=== PATIENT | male | born 1955 | race Caucasian/White ===

== ENCOUNTER 2016-09-25 16:19 | Inpatient (IN) | payer BC ==
[2016-09-25] MEDS ORDERED: LORazepam 2 MG/ML SYRINGE IV STA (16:46)
[2016-09-25] MEDS ORDERED: SODIUM CHLORIDE 0.9% 1,000 ML IV STA (16:46)
--- NOTE | 2016-09-25 16:52 | ED ---
General Adult HPI - General Chief complaint: Psychiatric Symptoms Stated complaint: mental health/aggressive Time Seen by Provider: 09/25/16 16:34 Source: patient, family, RN notes reviewed, old records reviewed Mode of arrival: ambulatory Limitations: no limitations - History of Present Illness Initial comments: This is a 60-year-old male ER for psychiatric evaluation. Patient denies history of psychiatric abuse and history of drug abuse. Today patient made threats to kill his son-in-law. Patient very emotional at bedside. Under sure why he is having these feelings. - Related Data Home Medications Medication Instructions Recorded Confirmed Aspirin EC [Ecotrin Low Dose] 162 mg PO DAILY 09/25/16 09/25/16 Allergies Allergy/AdvReac Type Severity Reaction Status Date / Time No Known Allergies Allergy Verified 09/25/16 17:48 Review of Systems ROS Statement: Those systems with pertinent positive or pertinent negative responses have been documented in the HPI. ROS Other: All systems not noted in ROS Statement are negative. Past Medical History Past Medical History: No Reported History Additional Past Medical History / Comment(s): states has not seen a dr in many years per significant weight loss in the past year History of Any Multi-Drug Resistant Organisms: None Reported Past Surgical History: Hernia Repair Past Psychological History: No Psychological Hx Reported Smoking Status: Current every day smoker Past Alcohol Use History: None Reported Past Drug Use History: None Reported General Exam Limitations: no limitations General appearance: alert, in no apparent distress Head exam: Present: atraumatic, normocephalic, normal inspection Eye exam: Present: normal appearance, PERRL, EOMI. Absent: scleral icterus, conjunctival injection, periorbital swelling ENT exam: Present: normal exam, mucous membranes moist Neck exam: Present: normal inspection. Absent: tenderness, meningismus, lymphadenopathy Respiratory exam: Present: normal lung sounds bilaterally. Absent: respiratory distress, wheezes, rales, rhonchi, stridor Cardiovascular Exam: Present: regular rate, normal rhythm, normal heart sounds. Absent: systolic murmur, diastolic murmur, rubs, gallop, clicks GI/Abdominal exam: Present: soft, normal bowel sounds. Absent: distended, tenderness, guarding, rebound, rigid Extremities exam: Present: normal inspection, full ROM, normal capillary refill. Absent: tenderness, pedal edema, joint swelling, calf tenderness Back exam: Present: normal inspection Neurological exam: Present: alert, oriented X3, CN II-XII intact Psychiatric exam: Present: normal affect, normal mood Skin exam: Present: warm, dry, intact, normal color. Absent: rash Course Vital Signs 09/25/16 09/25/16 16:38 17:37 Temperature 99.8 F H Pulse Rate 85 78 Respiratory 18 18 Rate Blood Pressure 163/77 136/75 O2 Sat by Pulse 98 98 Oximetry EKG Findings - EKG Comments: EKG Findings:: EKG shows normal sinus rhythm rate of 76, AR 132, QRS 80, QTC 423 Medical Decision Making - Medical Decision Making 60 male seen and evaluated by psychiatry will be admitted for psychiatric evaluation and treatment - Lab Data Result diagrams: 09/25/16 17:00 09/25/16 17:00 Lab Results 09/25/16 09/25/16 09/25/16 Range/Units 17:00 17:00 17:00 WBC 9.5 (3.8-10.6) k/uL RBC 4.58 (4.30-5.90) m/uL Hgb 14.7 (13.0-17.5) gm/dL Hct 44.1 (39.0-53.0) % MCV 96.3 (80.0-100.0) fL MCH 32.0 (25.0-35.0) pg MCHC 33.3 (31.0-37.0) g/dL RDW 13.4 (11.5-15.5) % Plt Count 239 (150-450) k/uL Neutrophils % 81 % Lymphocytes % 12 % Monocytes % 5 % Eosinophils % 0 % Basophils % 0 % Neutrophils # 7.7 (1.3-7.7) k/uL Lymphocytes # 1.2 (1.0-4.8) k/uL Monocytes # 0.4 (0-1.0) k/uL Eosinophils # 0.0 (0-0.7) k/uL Basophils # 0.0 (0-0.2) k/uL Sodium 139 (137-145) mmol/L Potassium 4.0 (3.5-5.1) mmol/L Chloride 103 (98-107) mmol/L Carbon Dioxide 26 (22-30) mmol/L Anion Gap 10 mmol/L BUN 14 (9-20) mg/dL Creatinine 0.82 (0.66-1.25) mg/dL Est GFR (MDRD) Af Amer >60 (>60 ml/min/1.73 sqM) Est GFR (MDRD) Non-Af >60 (>60 ml/min/1.73 sqM) Glucose 106 H (74-99) mg/dL Calcium 9.4 (8.4-10.2) mg/dL Phosphorus 2.9 (2.5-4.5) mg/dL Magnesium 1.8 (1.6-2.3) mg/dL Total Bilirubin 1.0 (0.2-1.3) mg/dL AST 19 (17-59) U/L ALT 27 (21-72) U/L Alkaline Phosphatase 76 (38-126) U/L Total Creatine Kinase 63 (55-170) U/L CK-MB (CK-2) 1.0 (0.0-2.4) ng/mL CK-MB (CK-2) Rel Index 1.6 Troponin I <0.012 (0.000-0.034) ng/mL Total Protein 7.0 (6.3-8.2) g/dL Albumin 3.9 (3.5-5.0) g/dL Urine Color Urine Appearance (Clear) Urine pH (5.0-8.0) Ur Specific [place] (1.001-1.035) Urine Protein (Negative) Urine Glucose (UA) (Negative) Urine Ketones (Negative) Urine Blood (Negative) Urine Nitrite (Negative) Urine Bilirubin (Negative) Urine Urobilinogen (<2.0) mg/dL Ur Leukocyte Esterase (Negative) Urine WBC (0-5) /hpf Urine Mucus (None) /hpf Urine Opiates Screen (NotDetected) Ur Oxycodone Screen (NotDetected) Urine Methadone Screen (NotDetected) Ur Propoxyphene Screen (NotDetected) Ur Barbiturates Screen (NotDetected) U Tricyclic Antidepress (NotDetected) Ur Phencyclidine Scrn (NotDetected) Ur Amphetamines Screen (NotDetected) U Methamphetamines Scrn (NotDetected) U Benzodiazepines Scrn (NotDetected) Urine Cocaine Screen (NotDetected) U Marijuana (THC) Screen (NotDetected) Serum Alcohol <10 mg/dL 09/25/16 09/25/16 Range/Units 17:45 17:45 WBC (3.8-10.6) k/uL RBC (4.30-5.90) m/uL Hgb (13.0-17.5) gm/dL Hct (39.0-53.0) % MCV (80.0-100.0) fL MCH (25.0-35.0) pg MCHC (31.0-37.0) g/dL RDW (11.5-15.5) % Plt Count (150-450) k/uL Neutrophils % % Lymphocytes % % Monocytes % % Eosinophils % % Basophils % % Neutrophils # (1.3-7.7) k/uL Lymphocytes # (1.0-4.8) k/uL Monocytes # (0-1.0) k/uL Eosinophils # (0-0.7) k/uL Basophils # (0-0.2) k/uL Sodium (137-145) mmol/L Potassium (3.5-5.1) mmol/L Chloride (98-107) mmol/L Carbon Dioxide (22-30) mmol/L Anion Gap mmol/L BUN (9-20) mg/dL Creatinine (0.66-1.25) mg/dL Est GFR (MDRD) Af Amer (>60 ml/min/1.73 sqM) Est GFR (MDRD) Non-Af (>60 ml/min/1.73 sqM) Glucose (74-99) mg/dL Calcium (8.4-10.2) mg/dL Phosphorus (2.5-4.5) mg/dL Magnesium (1.6-2.3) mg/dL Total Bilirubin (0.2-1.3) mg/dL AST (17-59) U/L ALT (21-72) U/L Alkaline Phosphatase (38-126) U/L Total Creatine Kinase (55-170) U/L CK-MB (CK-2) (0.0-2.4) ng/mL CK-MB (CK-2) Rel Index Troponin I (0.000-0.034) ng/mL Total Protein (6.3-8.2) g/dL Albumin (3.5-5.0) g/dL Urine Color Yellow Urine Appearance Clear (Clear) Urine pH 6.0 (5.0-8.0) Ur Specific [place] 1.011 (1.001-1.035) Urine Protein Negative (Negative) Urine Glucose (UA) Negative (Negative) Urine Ketones Negative (Negative) Urine Blood Negative (Negative) Urine Nitrite Negative (Negative) Urine Bilirubin Negative (Negative) Urine Urobilinogen <2.0 (<2.0) mg/dL Ur Leukocyte Esterase Trace H (Negative) Urine WBC 2 (0-5) /hpf Urine Mucus Rare H (None) /hpf Urine Opiates Screen Not Detected (NotDetected) Ur Oxycodone Screen Not Detected (NotDetected) Urine Methadone Screen Not Detected (NotDetected) Ur Propoxyphene Screen Not Detected (NotDetected) Ur Barbiturates Screen Not Detected (NotDetected) U Tricyclic Antidepress Not Detected (NotDetected) Ur Phencyclidine Scrn Not Detected (NotDetected) Ur Amphetamines Screen Not Detected (NotDetected) U Methamphetamines Scrn Not Detected (NotDetected) U Benzodiazepines Scrn Not Detected (NotDetected) Urine Cocaine Screen Not Detected (NotDetected) U Marijuana (THC) Screen Not Detected (NotDetected) Serum Alcohol mg/dL Disposition Clinical Impression: Depression, Homicidal ideation Disposition: TRANSFER TO PSYCH HOSP/UNIT Condition: Fair Referrals: Tiffani Arellano MD [Primary Care Provider] - 1-2 days
[2016-09-25 17:08] LABS: Basophils % (A) 0 %; CHCM 33.4; Eosinophils % (A) 0 %; HCT 44.1 % (39.0-53.0); HDW 2.23; HGB 14.7 gm/dL (13.0-17.5); Luc # (Auto) 0.17; Luc % (Auto) 2; Lymphocytes # (A) 1.2 k/uL (1.0-4.8); Lymphocytes % (A) 12 %; MCHC 33.3 g/dL (31.0-37.0); MCV 96.3 fL (80.0-100.0); Mean Platelet Volume 7.2; Monocytes # (A) 0.4 k/uL (0-1.0); Monocytes % (A) 5 %; Neutrophils # (A) 7.7 k/uL (1.3-7.7); Neutrophils % (A) 81 %; RBC 4.58 m/uL (4.30-5.90); RDW 13.4 % (11.5-15.5); WBC 9.5 k/uL (3.8-10.6); WBC (Perox) 9.65
[2016-09-25 17:21] LABS: ALT 27 U/L (21-72); AST 19 U/L (17-59); Alcohol <10 mg/dL; Alkaline Phosphatase 76 U/L (38-126); Anion Gap 10 mmol/L; Blood Urea Nitrogen 14 mg/dL (9-20); Calcium 9.4 mg/dL (8.4-10.2); Carbon Dioxide 26 mmol/L (22-30); Chloride 103 mmol/L (98-107); Creatine Kinase 63 U/L (55-170); Glucose 106 mg/dL (74-99); Magnesium 1.8 mg/dL (1.6-2.3); Non-African American GFR(MDRD) >60 (>60 ml/min/1.73 sqM); Phosphorous 2.9 mg/dL (2.5-4.5); Sodium 139 mmol/L (137-145)
[2016-09-25 17:32] LABS: Troponin I <0.012 ng/mL (0.000-0.034)
[2016-09-25 18:04] LABS: Appearance,Urine Clear (Clear); Bilirubin,Urine Negative (Negative); Glucose,Urine (UA) Negative (Negative); Ketones,Urine Negative (Negative); Leukocyte Esterase,Urine Trace (Negative); Mucus,Urine Rare /hpf; Nitrite,Urine Negative (Negative); Particle Count 927; Protein,Urine Negative (Negative); Specific Gravity,Urine 1.011 (1.001-1.035); UA Billing (MACRO vs. MICRO) MICRO; Urobilinogen,Urine <2.0 mg/dL (<2.0); WBC,Urine 2 /hpf (0-5)
[2016-09-25] MEDS ORDERED: MAGNESIUM HYDROXIDE 2,400 MG/10 ML CUP PO PRN (18:56)
[2016-09-25] MEDS ORDERED: ZIPRASIDONE 20 MG VIAL IM PRN (18:56)
[2016-09-25] MEDS ORDERED: MAG HYDROX/AL HYDROX/SIMETH 30 ML CUP PO PRN (18:56)
[2016-09-25] MEDS ORDERED: ACETAMINOPHEN TAB 325 MG TAB PO PRN (18:56)
[2016-09-25] MEDS ORDERED: LORazepam 1 MG TAB PO PRN (19:02)
[2016-09-25] MEDS ORDERED: LORazepam 2 MG/ML SYRINGE IM PRN (19:02)
[2016-09-25] MEDS: NICOTINE 14MG/24HR PATCH TRANSDERM SCH (21:26)
[2016-09-26] MEDS: NICOTINE 14MG/24HR PATCH TRANSDERM SCH (09:30)
[2016-09-26 10:59] LABS: Anion Gap 7 mmol/L; Blood Urea Nitrogen 14 mg/dL (9-20); Calcium 9.3 mg/dL (8.4-10.2); Carbon Dioxide 29 mmol/L (22-30); Chloride 104 mmol/L (98-107); Glucose 103 mg/dL (74-99); Non-African American GFR(MDRD) >60 (>60 ml/min/1.73 sqM); Potassium 4.4 mmol/L (3.5-5.1); Sodium 140 mmol/L (137-145)
--- NOTE | 2016-09-26 14:53 | P.HP ---
Psychiatric H&P - . H&P Date: 09/26/18 History & Physical: Allergies Allergy/AdvReac Type Severity Reaction Status Date / Time No Known Allergies Allergy Verified 09/25/16 20:04 Vital Signs Temp 98.0 F 09/26/16 06:40 Pulse 71 09/26/16 06:40 Resp 16 09/26/16 06:40 BP 133/73 09/26/16 06:40 Pulse Ox 97 09/25/16 18:49 Laboratory Last Values WBC 9.5 k/uL (3.8-10.6) 09/25/16 17:00 RBC 4.58 m/uL (4.30-5.90) 09/25/16 17:00 Hgb 14.7 gm/dL (13.0-17.5) 09/25/16 17:00 Hct 44.1 % (39.0-53.0) 09/25/16 17:00 MCV 96.3 fL (80.0-100.0) 09/25/16 17:00 MCH 32.0 pg (25.0-35.0) 09/25/16 17:00 MCHC 33.3 g/dL (31.0-37.0) 09/25/16 17:00 RDW 13.4 % (11.5-15.5) 09/25/16 17:00 Plt Count 239 k/uL (150-450) 09/25/16 17:00 Neutrophils % 81 % 09/25/16 17:00 Lymphocytes % 12 % 09/25/16 17:00 Monocytes % 5 % 09/25/16 17:00 Eosinophils % 0 % 09/25/16 17:00 Basophils % 0 % 09/25/16 17:00 Neutrophils # 7.7 k/uL (1.3-7.7) 09/25/16 17:00 Lymphocytes # 1.2 k/uL (1.0-4.8) 09/25/16 17:00 Monocytes # 0.4 k/uL (0-1.0) 09/25/16 17:00 Eosinophils # 0.0 k/uL (0-0.7) 09/25/16 17:00 Basophils # 0.0 k/uL (0-0.2) 09/25/16 17:00 Sodium 140 mmol/L (137-145) 09/26/16 10:23 Potassium 4.4 mmol/L (3.5-5.1) 09/26/16 10:23 Chloride 104 mmol/L (98-107) 09/26/16 10:23 Carbon Dioxide 29 mmol/L (22-30) 09/26/16 10:23 Anion Gap 7 mmol/L 09/26/16 10:23 BUN 14 mg/dL (9-20) 09/26/16 10:23 Creatinine 0.90 mg/dL (0.66-1.25) 09/26/16 10:23 Est GFR (MDRD) Af Amer >60 (>60 ml/min/1.73 sqM) 09/26/16 10:23 Est GFR (MDRD) Non-Af >60 (>60 ml/min/1.73 sqM) 09/26/16 10:23 Glucose 103 mg/dL (74-99) H 09/26/16 10:23 Calcium 9.3 mg/dL (8.4-10.2) 09/26/16 10:23 Phosphorus 2.9 mg/dL (2.5-4.5) 09/25/16 17:00 Magnesium 1.8 mg/dL (1.6-2.3) 09/25/16 17:00 Total Bilirubin 1.0 mg/dL (0.2-1.3) 09/25/16 17:00 AST 19 U/L (17-59) 09/25/16 17:00 ALT 27 U/L (21-72) 09/25/16 17:00 Alkaline Phosphatase 76 U/L (38-126) 09/25/16 17:00 Total Creatine Kinase 63 U/L (55-170) 09/25/16 17:00 CK-MB (CK-2) 1.0 ng/mL (0.0-2.4) 09/25/16 17:00 CK-MB (CK-2) Rel Index 1.6 09/25/16 17:00 Troponin I <0.012 ng/mL (0.000-0.034) 09/25/16 17:00 Total Protein 7.0 g/dL (6.3-8.2) 09/25/16 17:00 Albumin 3.9 g/dL (3.5-5.0) 09/25/16 17:00 TSH 2.020 mIU/L (0.465-4.680) 09/26/16 10:23 Urine Color Yellow 09/25/16 17:45 Urine Appearance Clear (Clear) 09/25/16 17:45 Urine pH 6.0 (5.0-8.0) 09/25/16 17:45 Ur Specific [place] 1.011 (1.001-1.035) 09/25/16 17:45 Urine Protein Negative (Negative) 09/25/16 17:45 Urine Glucose (UA) Negative (Negative) 09/25/16 17:45 Urine Ketones Negative (Negative) 09/25/16 17:45 Urine Blood Negative (Negative) 09/25/16 17:45 Urine Nitrite Negative (Negative) 09/25/16 17:45 Urine Bilirubin Negative (Negative) 09/25/16 17:45 Urine Urobilinogen <2.0 mg/dL (<2.0) 09/25/16 17:45 Ur Leukocyte Esterase Trace (Negative) H 09/25/16 17:45 Urine WBC 2 /hpf (0-5) 09/25/16 17:45 Urine Mucus Rare /hpf (None) H 09/25/16 17:45 Urine Opiates Screen Not Detected (NotDetected) 09/25/16 17:45 Ur Oxycodone Screen Not Detected (NotDetected) 09/25/16 17:45 Urine Methadone Screen Not Detected (NotDetected) 09/25/16 17:45 Ur Propoxyphene Screen Not Detected (NotDetected) 09/25/16 17:45 Ur Barbiturates Screen Not Detected (NotDetected) 09/25/16 17:45 U Tricyclic Antidepress Not Detected (NotDetected) 09/25/16 17:45 Ur Phencyclidine Scrn Not Detected (NotDetected) 09/25/16 17:45 Ur Amphetamines Screen Not Detected (NotDetected) 09/25/16 17:45 U Methamphetamines Scrn Not Detected (NotDetected) 09/25/16 17:45 U Benzodiazepines Scrn Not Detected (NotDetected) 09/25/16 17:45 Urine Cocaine Screen Not Detected (NotDetected) 09/25/16 17:45 U Marijuana (THC) Screen Not Detected (NotDetected) 09/25/16 17:45 Serum Alcohol <10 mg/dL 09/25/16 17:00 09/26/16 14:40 IDENTIFYING DATA: 60-year-old male patient HPI: Patient admitted to the inpatient psychiatric unit [facility] on a voluntary basis. Patient states that has voiced daughter and her boyfriend moved in with them 9 months ago into their apartment/duplex. He says the plan for them was to be there until they got a place on their own and got jobs and they are still there. He relays that he has a problem with his 's daughter' s boyfriend and feels that he tries to manipulate his to get his way. He says that things have escalated and he has isolated himself from it. He states that he got into an argument with him and then apologized to him and then avoided him. he states that he could still hear him saying things day after day and he "blew up." He relays that his 's daughter's boyfriend offered to take his to an NA meeting and the patient himself wanted to take her and he took the handle of a hammer and made reference to taking it and bashing his head in. He says he proceeded to slam the club on the counter and it freaked his out. He says she went to the police and they told her they couldn't do anything and she came back and told him that he had to get out states he asked his to get him an appointment with a psychiatrist and she brought him to the hospital. He admits that he had some thoughts of suicide after his was gone and he kept looking at a knife. He does relay that yesterday he had thoughts of harm to his daughter's boyfriend, denies any current thoughts of harm to him. He states that his took them and told him not to come in the house and put them in a hotel. He does relay that things been building in terms of like anxiety or depression. He has been more irritable lately and states that there has been a lot of stress lately he denies being a significant worrier. Says he sleeps about 4-5 hours per night. He has lost significant amount of weight over the last 9 months he's lost approximately 80 pounds. PAST PSYCHIATRIC HISTORY: He denies any history of psychiatric treatment. He has never been on psychotropic medications. He's never had depression that affected his functioning. He denies any history of suicide attempts. He denies any history of violence. PMH: History of DVT ALLERGIES: No Known ALLERGIES MEDICATIONS: Tylenol when necessary, Maalox when necessary, Ativan when necessary, milk of magnesia when necessary, Zoloft, Geodon when necessary CHEMICAL DEPENDENCY HISTORY: Denies FAMILY PSYCHIATRIC HISTORY: Not known at this time. FAMILY CHEMICAL DEPENDENCY HISTORY: Unknown at this time. SOCIAL HISTORY: Currently lives in an apartment duplex, most recently with his and her daughter and her daughter's boyfriend. 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 He has been 10 years. This is a second marriage, his first marriage ended in divorce. He does not have any biological children. MENTAL STATUS EXAM: He is alert and cooperative with the interview. His speech is fluent, not rapid or pressured. Thought processes are organized. He describes his mood as "fine." He denies any current suicidal ideations. He denies any current thoughts of harm to the daughter's boyfriend. He does not voice any thoughts of harm to others. He denies any auditory or visual hallucinations. He does not verbalize any delusional thoughts. Cognitively appears to be grossly intact. His insight is adequate, judgment shows evidence of recent impairment. STRENGTHS/WEAKNESSES: Strengths-seeking treatment, some support; weaknesses- coping skills INTELLECTUAL FUNCTIONING: Average IMPRESSIONS: AXIS I : Unspecified depressive disorder; unspecified anxiety disorder AXIS II: Deferred AXIS III: History of DVT AXIS IV: Family, living situation issues AXIS V: 30 PLAN: Patient admitted to the inpatient psychiatric unit [facility] on a voluntary basis. She'll be placed on SP 15 minute precautions. She'll participate in group and activity therapies. Baseline laboratory workup will be done the patient and medical consultation will be ordered. We'll initiate Zoloft 50 mg daily for depressive and anxiety components. Duty to warn will be completed, patient gave name of 's daughter's boyfriend, social work to further look into address to send. He currently denies any thoughts of suicide and denies any thoughts of harm to 's daughter's boyfriend. We'll continue to monitor regarding any suicidal or homicidal ideations. Estimated length of stay is 3-5 days. Prognosis is guarded. We will look into family support. Dr. Hernandez to initiate care this patient starting tomorrow.
[2016-09-26] MEDS: SERTRALINE 50 MG TAB PO SCH (15:54)
--- NOTE | 2016-09-26 17:32 | CONS ---
DATE OF CONSULTATION: CHIEF COMPLAINT: Acute depression and anxiety. HISTORY OF PRESENT ILLNESS: This is a 60-year-old male who presented to the emergency for psychiatric evaluation. Patient denied any history of psychiatric disease, and said that he had some argument with his son-in-law and threatened that he is going to kill him. Patient denied any previous episodes of similar episodes. Patient is denying chest pain, shortness breath, nausea, vomiting, abdominal pain, dizziness, lightheadedness, or blurry vision. REVIEW OF SYSTEMS: All 14 systems reviewed and negative except as above. HOME MEDICATIONS: Aspirin 62 mg twice daily. ALLERGIES: No known drug allergies. PAST MEDICAL HISTORY AND SURGICAL HISTORY: Hernia repair and tonsillectomy as a child. 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 Denied alcohol or drug abuse. ALLERGIES: No known drug allergies. FAMILY HISTORY: Reviewed and negative. PHYSICAL EXAMINATION: VITAL SIGNS: 97.7, 86, 18, 163/77 and saturation is 98% on room air. GENERAL: In his stated age, no acute distress. HEENT: Atraumatic, normocephalic. PERRLA. NECK: Supple, no masses. No thyromegaly. LUNGS: Clear to auscultation bilaterally. HEART: S1, S2. ABDOMEN: Soft, no tenderness. Positive bowel sounds in all four quadrants. EXTREMITIES: Lower extremity no edema. PSYCH: Alert and oriented x3. NEURO: No focal deficit. IMAGING AND LABS: CBC was normal. Chem-7 was normal. Liver function test was normal. Alcohol was normal. UA was normal. Urine drug screen was negative. ASSESSMENT AND PLAN: 1. Acute depression. Will defer management to psychiatrist. 2. Tobacco dependency. We will consultation regarding smoking cessation. 3. Elevated blood pressure without history of hypertension. We will have patient's follow up with his primary care physician regarding need for medication on outpatient basis.
[2016-09-27] MEDS: SERTRALINE 50 MG TAB PO SCH (09:15)
--- NOTE | 2016-09-27 13:12 | P.PN ---
Progress Note - Text Interval history: I reviewed medical record ,discussed case in team treatment and did see patient an interview room. He reports his mood is fine. He endorses no symptoms as we reviewed several types. It appears he has been compliant with medications. It was documented he slept 7 hours last evening. 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 . Speech is spontaneous and coherent. He denies having any suicidal or homicidal ideation intent or plan he denies any symptoms of psychosis. He denies any manic or hypomanic features ,insight and judgment improving. Plan: Continue VICKI Castro to contact patient for possible discharge in couple of days,encourage patient for participation in milieu
[2016-09-28 05:50] VITALS: BP 150/69; PULSE 60; RESP 16; TEMP 98.3
[2016-09-28] MEDS: SERTRALINE 50 MG TAB PO SCH (08:17)
--- NOTE | 2016-09-29 13:10 | DS ---
DATE OF ADMISSION: 09/25/2016 DATE OF DISCHARGE: 09/28/2016 CONSULT PHYSICIAN: Ryan. CONSULTING PROVIDER: Dr. Javi Read. CONSULT REASON: For medical management. Do you want consulting provider notified? Yes. DISCHARGE DIAGNOSES: 1. Adjustment disorder with mixed emotion. 2. Anxiety disorder, unspecified. BRIEF SUMMARY OF THE ADMISSION NOTE: Patient was admitted on September 25. Please refer to psychiatric history and physical examination dictated by Dr. Ricardo Mcginnis on September 26. Patient presented to the emergency room with homicidal ideation. Patient stated that his , daughter and her boyfriend moved in with them 9 months ago into their apartment and they were planning to stay there for just a couple of months until they will find place on their own; however, they had been living there for almost 9 months and patient was very frustrated and he did feel that the daughter and boyfriend trying to manipulate everyone in the house and prior to his arrival to the emergency patient stated that he did get into argument with him then I apologized to him and he is trying to avoid him. For complete history and physical examination, please refer to initial evaluation. 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 HOSPITAL COURSE: Patient was admitted to the hospital on voluntary basis and he was started on low dose of Zoloft 50 mg daily. Patient's urine drug screen was negative and his serum alcohol is less than 10. After his admission, our social worker assistant did send letter to the daughter's boyfriend for duty for warning despite that the patient denied any suicidal or homicidal ideation. We did contact the patient's , who stated that the patient never had been aggressive or violent before and she did report that daughter's boyfriend has been very manipulative and they moved out from the house since the patient had been here. According to the social worker assistant notes, on September 27 she did discuss the discharge planning with the , who stated that the patient never acted this way before and it was out of his character. She does not have any concern about him returning home, as they have been living together for 20 years. She stated that the daughter and daughter's boyfriend are out of the house. Also, she could confirmed that there is no gun in the house and patient does not have access to any weapon. I talked with the patient who has been very compliant, very polite and he stated that he needs to work on "being more assertive instead of being passive". He denied having any side effect from the psychotropic medication. He denied any sleeping or appetite problem. He denied any feeling of hopeless or helpless. He reported that his mood is improved and he describes that the stressor was more situational. He did have minimal participation in group therapy, but he denied any auditory or visual hallucination. He denied any suicidal or homicide ideation. 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 I did give him letter to return back to work without restriction on October 09. Patient does have a family meeting scheduled with his this afternoon. MENTAL STATUS EXAMINATION: At the time of the discharge, patient is alert. He gave good eye contact, appropriate in hygiene and grooming, very polite and pleasant. Speech is spontaneous, non pressured. Thought process is linear and goal directed. He is reporting no homicidal or suicidal ideation, intent or plan. He does not feel hopeless or helpless. There is no evidence of hypomania or gabriel. There is no evidence of psychosis. Insight and judgment are good. Cognitive ability has remained stable across the hospitalization. There is no verbal or physical aggression observed. PLAN: 1. The patient will be discharged from the mental health unit today to return home following his support family meeting. 2. Patient was given one-month supply for Zoloft 50 mg daily. 3. Patient will be referred to outpatient counseling and he has an appointment with the [facility] on October 05 at 10 a.m. 4. There is no eminent safety risk and patient is appropriate for transition to outpatient care. He was instructed to return to the emergency room if any acute safety concern. Patient condition at the time of the discharge, stable.
== END 2016-09-28 10:17 | disposition home or self-care (01) | DRG 882 ==
LOC: EC 16:19 → 3MHU 18:51
PROVIDERS: ADMIT Psychiatry & Neurology Psychiatry; ATTEND Psychiatry & Neurology Psychiatry
DX: F43.23 Adjustment disorder with mixed anxiety and depressed mood (principal); R45.850 Homicidal ideations; F32.9 Major depressive disorder, single episode, unspecified; F17.210 Nicotine dependence, cigarettes, uncomplicated; Z86.718 Personal history of other venous thrombosis and embolism; Z79.82 Long term (current) use of aspirin; Z63.79 Other stressful life events affecting family and household; R03.0 Elevated blood-pressure reading, without diagnosis of hypertension; F41.1 Generalized anxiety disorder
CPT/HCPCS: 36415; 80048; 80053; 80306; 80320; 81001; 82075; 82550; 82553; 83735; 84100; 84443; 84484; 85025; 87086; 93005; 96361; 96374; 99285

== ENCOUNTER 2018-08-05 14:51 | Inpatient (IN) | payer OTHER ==
[2018-08-05] MEDS ORDERED: IV FLUID CONTINUATION 900 ML IV ONE (15:41)
[2018-08-05] MEDS ORDERED: LIDOCAINE 1% INJ 10MG/ML (20 ML MDV) SQ ONE (15:42)
[2018-08-05] MEDS ORDERED: MIDAZOLAM 2 MG/2 ML VIAL IVP ONE (15:43)
[2018-08-05] MEDS: VERAPAMIL SYRINGE (5 MG/10 ML) INTRAARTER ONE ×2 (15:44→16:18)
[2018-08-05] MEDS ORDERED: BIVALIRUDIN BOLUS 250 MG/50 ML IV ONE (15:47)
[2018-08-05] MEDS ORDERED: BIVALIRUDIN 250 MG in SODIUM CHLORIDE 0.9% 35 ML IV ONE (15:48)
[2018-08-05] MEDS ORDERED: fentaNYL (PF) 50 MCG/ML 2 ML AMP IV ONE (15:51)
[2018-08-05] MEDS ORDERED: ATROPINE SULFATE 0.1 MG/ML 10ML SYRINGE IVP ONE (16:00)
[2018-08-05] MEDS ORDERED: TICAGRELOR 90 MG TAB PO ONE (16:04)
[2018-08-05] MEDS ORDERED: NITROGLYCERIN 1000MCG/10ML SYRINGE INTRACORON ONE (16:06)
[2018-08-05] MEDS ORDERED: niCARdipine Syringe (1,000 mcg/10 mL) INTRACORON ONE (16:14)
[2018-08-05] MEDS ORDERED: IOPAMIDOL-370 125ML BTL INJ ONE (16:21)
[2018-08-05] MEDS ORDERED: SODIUM CHLORIDE 0.9% 1,000 ML IV SCH (16:30)
--- NOTE | 2018-08-05 21:54 | XR ---
EXAMINATION TYPE: AP portable chest DATE OF EXAM: 08/05/2018 Comparison: 06/22/2012 Clinical History: 62-year-old male STEMI, pain Findings: Heart mildly enlarged. Diffuse interstitial and vascular prominence. Patchy left basilar opacity. Impression: Interstitial prominence in mildly enlarged heart. Correlate for mild pulmonary vascular congestion. S ome patchy left basilar opacity could represent small effusion with adjacent atelectasis and/or conso lidation.
[2018-08-05] MEDS: ATORVASTATIN 80 MG TAB PO SCH (22:55)
[2018-08-05] MEDS: TICAGRELOR 90 MG TAB PO SCH (22:55)
[2018-08-06 01:47] LABS: Basophils % (A) 0 %; Eosinophils # (A) 0.1 k/uL (0-0.7); Eosinophils % (A) 1 %; HGB 9.5 gm/dL (13.0-17.5); Lymphocytes # (A) 1.3 k/uL (1.0-4.8); Lymphocytes % (A) 14 %; MCH 31.8 pg (25.0-35.0); MCHC 32.7 g/dL (31.0-37.0); MCV 97.2 fL (80.0-100.0); Mean Platelet Volume 6.8; Monocytes # (A) 0.4 k/uL (0-1.0); Monocytes % (A) 5 %; Neutrophils # (A) 7.2 k/uL (1.3-7.7); Neutrophils % (A) 77 %; Platelet Count 256 k/uL (150-450); RBC 2.99 m/uL (4.30-5.90); RDW 15.5 % (11.5-15.5); WBC 9.3 k/uL (3.8-10.6)
[2018-08-06 02:13] LABS: INR 0.9 (<1.2); Partial Thromboplastin Time 21.6 sec (22.0-30.0); Prothrombin Time 9.8 sec (9.0-12.0)
[2018-08-06] MEDS ORDERED: NALOXONE 0.4 MG/ML 1 ML VIAL IV PRN (03:34)
[2018-08-06 03:39] LABS: Creatine Kinase MB 1.8 ng/mL (0.0-2.4)
[2018-08-06 03:53] LABS: Troponin I 0.11 ng/mL (0.000-0.034)
[2018-08-06 03:55] LABS: ALT 32 U/L (21-72); AST 25 U/L (17-59); Albumin 3.3 g/dL (3.5-5.0); Alkaline Phosphatase 61 U/L (38-126); Anion Gap 4 mmol/L; Blood Urea Nitrogen 16 mg/dL (9-20); Calcium 8.6 mg/dL (8.4-10.2); Carbon Dioxide 29 mmol/L (22-30); Chloride 107 mmol/L (98-107); Glucose 109 mg/dL (74-99); Potassium 4.3 mmol/L (3.5-5.1); Sodium 140 mmol/L (137-145); Total Bilirubin 0.7 mg/dL (0.2-1.3)
[2018-08-06 06:03] LABS: Basophils % (A) 0 %; Eosinophils # (A) 0.1 k/uL (0-0.7); Eosinophils % (A) 2 %; HCT 28.6 % (39.0-53.0); HGB 9.1 gm/dL (13.0-17.5); Hypochromasia Slight; Lymphocytes # (A) 1.5 k/uL (1.0-4.8); Lymphocytes % (A) 19 %; MCH 31.5 pg (25.0-35.0); MCHC 31.7 g/dL (31.0-37.0); MCV 99.2 fL (80.0-100.0); Macrocytosis Slight; Mean Platelet Volume 6.6; Monocytes # (A) 0.3 k/uL (0-1.0); Monocytes % (A) 4 %; Neutrophils # (A) 5.7 k/uL (1.3-7.7); Neutrophils % (A) 72 %; Platelet Count 253 k/uL (150-450); RBC 2.88 m/uL (4.30-5.90); RDW 15.4 % (11.5-15.5)
[2018-08-06 06:09] LABS: Anion Gap 4 mmol/L; Blood Urea Nitrogen 12 mg/dL (9-20); Calcium 8.4 mg/dL (8.4-10.2); Carbon Dioxide 29 mmol/L (22-30); Chloride 105 mmol/L (98-107); Glucose 88 mg/dL (74-99); Magnesium 1.9 mg/dL (1.6-2.3); Phosphorus 3.4 mg/dL (2.5-4.5); Potassium 4.4 mmol/L (3.5-5.1); Sodium 138 mmol/L (137-145)
--- NOTE | 2018-08-06 07:27 | P.PN ---
Subjective Progress Note Date: 08/06/18 Principal diagnosis: Inferior ST elevation LA This is a pleasant 62-year-old female patient with history of smoking presented to the hospital complaining of chest discomfort and was diagnosed with acute inferior ST patient myocardial infarction. He underwent an emergent heart catheterization and was found to have occluded distal right coronary artery and critical disease involving the left circumflex. The patient underwent successful stenting of the RCA with a good angiographic results. On follow-up with him today, 08/06/2018, he is asymptomatic from the cardiovascular standpoint overview. No chest pain or discomfort. No shortness of breath. The right radial artery does have good pulses. He continues to be on dual antiplatelet therapy along with high intensity statin. He is not on metoprolol but I would start him on 12.5 mg by mouth twice a day. An echocardiogram was ordered and we will follow-up with that. Objective - Vital Signs Vital signs: Vital Signs Temp 98.4 F 08/06/18 04:00 Pulse 61 08/06/18 07:00 Resp 14 08/06/18 07:00 BP 122/76 08/06/18 07:00 Pulse Ox 98 08/06/18 07:00 Intake & Output 08/05/18 08/06/18 08/06/18 18:59 06:59 18:59 Intake Total 600 Output Total 900 0 Balance -300 0 Weight 97.4 kg Intake: IV 600 Sodium Chloride 0.9% 1, 600 000 ml @ 100 mls/hr IV . Q10H [facility] Rx#:[id number] Output: Urine 900 0 Other: Voiding Method Urinal - Constitutional General appearance: Present: no acute distress - Respiratory Respiratory: bilateral: CTA - Cardiovascular Rhythm: regular Heart sounds: normal: S1, S2 - Labs CBC & Chem 7: 08/06/18 04:56 08/06/18 04:56 Labs: Abnormal Lab Results - Last 24 Hours (Table) 08/05/18 08/05/18 08/05/18 Range/Units 15:00 15:00 15:00 RBC 2.99 L (4.30-5.90) m/uL Hgb 9.5 L (13.0-17.5) gm/dL Hct 29.0 L (39.0-53.0) % APTT 21.6 L (22.0-30.0) sec Glucose 109 H (74-99) mg/dL Troponin I (0.000-0.034) ng/mL Total Protein 6.0 L (6.3-8.2) g/dL Albumin 3.3 L (3.5-5.0) g/dL 08/05/18 08/06/18 Range/Units 15:00 04:56 RBC 2.88 L (4.30-5.90) m/uL Hgb 9.1 L (13.0-17.5) gm/dL Hct 28.6 L (39.0-53.0) % APTT (22.0-30.0) sec Glucose (74-99) mg/dL Troponin I 0.110 H* (0.000-0.034) ng/mL Total Protein (6.3-8.2) g/dL Albumin (3.5-5.0) g/dL Assessment and Plan Assessment: Assessment #[address] patient myocardial infarction #2 status post PCI of the RCA #3 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
[2018-08-06] MEDS: LISINOPRIL 2.5 MG TAB PO SCH (08:47)
[2018-08-06] MEDS: METOPROLOL TARTRATE 12.5 MG TAB PO SCH ×2 (08:47→21:44)
[2018-08-06] MEDS: TICAGRELOR 90 MG TAB PO SCH ×2 (08:47→21:44)
[2018-08-06] MEDS: ASPIRIN 81 MG PO SCH (08:47)
--- NOTE | 2018-08-06 16:40 | P.HPIM ---
History of Present Illness Patient was a 62-year-old gentleman with history of nicotine abuse came in with complaints of chest pain with shortness of breath and diaphoresis found to have acute inferior wall ST elevation myocardial infarction. Patient underwent cardiac catheterization and stenting of right coronary artery which is the culprit vessel that is critical disease involving the circumflex as well which will be taken care of as a part of steroids or intervention. Patient presently denied any chest pain or any fever chills nausea vomiting abdominal pain Review of Systems REVIEW OF SYSTEMS: CONSTITUTIONAL: No fever, no malaise, no fatigue. HEENT: No recent visual problems or hearing problems. Denied any sore throat. CARDIOVASCULAR: No orthopnea, PND, no palpitations, no syncope. PULMONARY: No shortness of breath, no cough, no hemoptysis. GASTROINTESTINAL: No diarrhea, no nausea, no vomiting, no abdominal pain. NEUROLOGICAL: No headaches, no weakness, no numbness. HEMATOLOGICAL: Denies any bleeding or petechiae. GENITOURINARY: Denies any burning micturition, frequency, or urgency. MUSCULOSKELETAL/RHEUMATOLOGICAL: Denies any joint pain, swelling, or any muscle pain. ENDOCRINE: Denies any polyuria or polydipsia. The rest of the 14-point review of systems is negative. Past Medical History Past Medical History: No Reported History Additional Past Medical History / Comment(s): states has not seen a dr in many years per significant weight loss in the past year History of Any Multi-Drug Resistant Organisms: None Reported Past Surgical History: Hernia Repair Past Psychological History: No Psychological Hx Reported Smoking Status: Current every day smoker Past Alcohol Use History: None Reported Past Drug Use History: None Reported Medications and Allergies Home Medications Medication Instructions Recorded Confirmed Type Aspirin EC [Ecotrin Low Dose] 162 mg PO DAILY 09/25/16 09/25/16 History Sertraline [Zoloft] 50 mg PO DAILY 30 Days tab 09/28/16 Rx Allergies Allergy/AdvReac Type Severity Reaction Status Date / Time No Known Allergies Allergy Verified 09/25/16 20:04 Physical Exam Vitals: Vital Signs Temp Pulse Resp BP Pulse Ox 08/06/18 16:00 72 19 121/66 93 L 08/06/18 15:00 73 11 L 114/69 93 L 08/06/18 14:00 70 18 122/67 93 L 08/06/18 13:00 71 16 127/73 91 L 08/06/18 12:00 69 17 122/65 93 L 08/06/18 11:00 105 H 17 132/71 92 L 08/06/18 10:00 68 15 126/74 92 L 08/06/18 09:30 71 11 L 119/70 94 L 08/06/18 09:00 70 15 139/69 91 L 08/06/18 08:30 80 14 141/72 95 08/06/18 08:00 75 15 144/74 97 08/06/18 07:30 82 13 133/70 96 08/06/18 07:00 61 14 122/76 98 08/06/18 06:30 64 15 127/75 98 08/06/18 06:00 61 14 130/81 98 08/06/18 05:30 66 16 139/80 97 08/06/18 05:00 77 12 125/68 96 08/06/18 04:30 61 14 120/68 98 08/06/18 04:00 98.4 F 62 15 127/72 98 08/06/18 03:30 64 16 119/61 98 08/06/18 03:00 64 14 134/78 98 08/06/18 02:30 60 14 116/73 98 08/06/18 02:00 64 14 138/86 98 08/06/18 01:30 85 17 127/68 98 08/06/18 01:00 58 L 11 L 118/61 98 08/06/18 00:30 62 16 145/85 98 08/06/18 00:00 98.4 F 63 16 143/85 99 08/05/18 23:34 60 16 143/85 99 08/05/18 23:30 63 13 135/83 99 08/05/18 23:00 61 16 157/85 99 08/05/18 22:30 62 16 141/78 99 08/05/18 22:00 60 17 143/76 98 08/05/18 21:30 56 L 16 122/66 100 08/05/18 21:00 63 22 136/80 99 08/05/18 20:30 62 16 140/79 99 08/05/18 20:10 62 18 140/79 99 Intake and Output 08/06/18 08/06/18 08/06/18 06:59 14:59 22:59 Intake Total 600 200 Output Total 700 0 Balance -100 200 Intake: IV 600 Sodium Chloride 0.9% 1, 600 000 ml @ 100 mls/hr IV . Q10H [facility] Rx#:[id number] Oral 200 Output: Urine 700 0 Other: Voiding Method Urinal Urinal # Voids 1 Weight 97.4 kg PHYSICAL EXAMINATION: GENERAL: The patient is alert and oriented x3, not in any acute distress. Well developed, well nourished. HEENT: Pupils are round and equally reacting to light. EOMI. No scleral icterus. No conjunctival pallor. Normocephalic, atraumatic. No pharyngeal erythema. No thyromegaly. CARDIOVASCULAR: S1 and S2 present. No murmurs, rubs, or gallops. PULMONARY: Chest is clear to auscultation, no wheezing or crackles. ABDOMEN: Soft, nontender, nondistended, normoactive bowel sounds. No palpable organomegaly. MUSCULOSKELETAL: No joint swelling or deformity. EXTREMITIES: No cyanosis, clubbing, or pedal edema. NEUROLOGICAL: Gross neurological examination did not reveal any focal deficits. SKIN: No rashes. Results CBC & Chem 7: 08/06/18 04:56 08/06/18 04:56 Labs: Abnormal Lab Results - Last 24 Hours (Table) 08/05/18 08/05/18 08/05/18 Range/Units 15:00 15:00 15:00 RBC 2.99 L (4.30-5.90) m/uL Hgb 9.5 L (13.0-17.5) gm/dL Hct 29.0 L (39.0-53.0) % APTT 21.6 L (22.0-30.0) sec Glucose 109 H (74-99) mg/dL Troponin I (0.000-0.034) ng/mL Total Protein 6.0 L (6.3-8.2) g/dL Albumin 3.3 L (3.5-5.0) g/dL 08/05/18 08/06/18 08/06/18 Range/Units 15:00 04:56 04:56 RBC 2.88 L (4.30-5.90) m/uL Hgb 9.1 L (13.0-17.5) gm/dL Hct 28.6 L (39.0-53.0) % APTT (22.0-30.0) sec Glucose (74-99) mg/dL Troponin I 0.110 H* 47.500 H* (0.000-0.034) ng/mL Total Protein (6.3-8.2) g/dL Albumin (3.5-5.0) g/dL 08/06/18 Range/Units 10:44 RBC (4.30-5.90) m/uL Hgb (13.0-17.5) gm/dL Hct (39.0-53.0) % APTT (22.0-30.0) sec Glucose (74-99) mg/dL Troponin I 32.100 H* (0.000-0.034) ng/mL Total Protein (6.3-8.2) g/dL Albumin (3.5-5.0) g/dL Thrombosis Risk Factor Assmnt - Choose All That Apply Any of the Below Risk Factors Present?: Yes Each Factor Represents 1 point: Acute IN, Medical pt on bed rest Other Risk Factors: Yes Each Risk Factor Represents 2 Points: Age 61-74 years, Patient confined to bed Other congenital or acquired thrombophilia - If yes, enter type in comment: No Thrombosis Risk Factor Assessment Total Risk Factor Score: 6 Thrombosis Risk Factor Assessment Level: High Risk Assessment and Plan Plan: -Acute ST elevation microinfarction: Patient is a status post cardiac catheterization and stenting of RCA has still the critical disease in circumflex which will be addressed during this hospitalization. Continue with with you antiplatelet therapy beta lali and a statin -Nicotine abuse: Counseling was provided -Hyperlipidemia -Hypertension
--- NOTE | 2018-08-06 20:10 | CC ---
CARDIAC CATHETERIZATION REPORT CARDIAC CATHETERIZATION AND PERCUTANEOUS CORONARY INTERVENTION DATE OF SERVICE: August 05, 2018. PERFORMING PHYSICIAN: Mike Siegel MD, drafting detailer. PROCEDURE PERFORMED: 1. Selective right and left coronary angiogram. 2. Left heart catheterization. 3. Successful stenting of the distal right coronary artery using 3.0 x 18 mm Xience CANDY which was postdilated using 3.5 mm NC balloon with good angiographic results and reduction of stenosis from 100% to 0%. INDICATION: This is a pleasant 62-year-old gentleman with significant history of smoking, who presented to the emergency room with chest discomfort within the last 24 hours. He was diagnosed with acute inferior ST-elevation myocardial infarction and was brought emergently for heart catheterization. APPROACH: Right radial artery. COMPLICATION: None. LEVEL OF SEDATION: Moderate with sedation length of 40 minutes. Door to balloon of 53 minutes. PROCEDURE DESCRIPTION: After obtaining an informed consent, the patient was brought to cardiac chemical laboratory chief. The right radial artery was cannulated using micropuncture technique and a micropuncture wire passed easily then I placed a 6-Israeli sheath in the right radial artery. After that I gave the patient 2 mg of verapamil IA. Anticoagulation was initiated using Angiomax. I did selective right and left coronary angiogram using JR4 and JL3.5 catheters before I intervened on the RCA. After that I did left heart catheterization. I did the left heart catheterization using 5-Israeli pigtail catheter. The procedure was completed without any complication. SELECTIVE CORONARY ANGIOGRAM: 1. The left main is a large caliber vessel. It is angiographically normal. It bifurcates into left circumflex and left anterior descending artery. 2. Left circumflex is a large caliber vessel. It is a nondominant vessel. The proximal circumflex appeared to have an ulcerated lesion in the range of 70%. This is by the bifurcation of a medium size first OM branch. The mid circumflex appeared to be normal and gives rise into a second and third OM branches which appeared to be angiographically normal and the circumflex continued after that as a medium caliber vessel in the AV groove with mild disease only. 3. The LAD is extremely calcified. The proximal LAD appeared to have mild disease only. The mid LAD has mild disease only and gives rise into a large diagonal branch which has an ostial lesion in the range of 60%. The LAD distally appeared to be normal. 4. The RCA is a large caliber vessel. It is a dominant vessel. The proximal RCA has mild disease only. The mid RCA has mild disease only as well and RCA distally is occluded with acute occlusion and dye staining. HEMODYNAMICS: The left ventricular end-diastolic pressure was about 12 mmHg without significant gradient across aortic valve. PCI OF THE RCA: Anticoagulation was initiated using Angiomax. Subsequently I took a JR4 guide and the RCA was engaged. A run-through wire was used to wire the right coronary artery and across the acute total occlusion distally. After that I did balloon angioplasty using 3.0 x 12 mm balloon before I deployed 3.0 x 18 mm Xience drug-eluting stent where the stent was positioned under fluoroscopy guidance and deployed under 18 atmospheres for 20 seconds. I post dilated the stent using 3.5 15 mm NC balloon. The final angiogram showed good angiographic results with good flow in the right coronary artery. CONCLUSION: 1. Acute inferior ST-elevation myocardial infarction. 2. Acute total occlusion of the distal right coronary artery. The RCA was stented with good angiographic results and reduction of stenosis from 100% to 0%. 3. Severe disease involving the proximal left circumflex with ulcerated lesion. 4. Mild disease involving the LAD system. POSTPROCEDURE MANAGEMENT: 1. Dual antiplatelet therapy. 2. Risk factors modification. 3. Aggressive cholesterol control. 4. Smoking cessation. 5. PCI of the left circumflex down the line. 6. An echocardiogram with Doppler. MMODL / IJN: [id number] /
[2018-08-06] MEDS: ATORVASTATIN 80 MG TAB PO SCH (21:43)
[2018-08-07 05:19] LABS: Basophils % (A) 0 %; Eosinophils # (A) 0.1 k/uL (0-0.7); Eosinophils % (A) 1 %; HCT 28.9 % (39.0-53.0); HGB 9.2 gm/dL (13.0-17.5); Hypochromasia Slight; Lymphocytes # (A) 1.4 k/uL (1.0-4.8); Lymphocytes % (A) 16 %; MCH 31.4 pg (25.0-35.0); MCHC 31.9 g/dL (31.0-37.0); MCV 98.4 fL (80.0-100.0); Macrocytosis Slight; Mean Platelet Volume 6.6; Monocytes # (A) 0.4 k/uL (0-1.0); Monocytes % (A) 4 %; Neutrophils # (A) 6.4 k/uL (1.3-7.7); Neutrophils % (A) 74 %; Platelet Count 243 k/uL (150-450); RBC 2.94 m/uL (4.30-5.90); RDW 15.6 % (11.5-15.5); WBC 8.6 k/uL (3.8-10.6)
[2018-08-07 05:44] LABS: Calcium 8.9 mg/dL (8.4-10.2); Potassium 4.1 mmol/L (3.5-5.1); Total Bilirubin 0.7 mg/dL (0.2-1.3); Total Protein 5.7 g/dL (6.3-8.2)
[2018-08-07 06:16] LABS: Magnesium 1.9 mg/dL (1.6-2.3); Phosphorus 3.3 mg/dL (2.5-4.5)
[2018-08-07] MEDS ORDERED: Magnesium Replacement Protocol 1 EACH MISC MISCELLANE PRN (06:37)
[2018-08-07] MEDS: MAGNESIUM SULFATE-D5W PMX 1 GM in DEXTROSE/WATER 1 100ML.BAG IVPB SCH ×2 (06:59→09:00)
--- NOTE | 2018-08-07 07:24 | P.PN ---
Subjective Progress Note Date: 08/07/18 Principal diagnosis: Inferior ST elevation [place] This is a pleasant 62-year-old female patient with history of smoking presented to the hospital complaining of chest discomfort and was diagnosed with acute inferior ST patient myocardial infarction. He underwent an emergent heart catheterization and was found to have occluded distal right coronary artery and critical disease involving the left circumflex. The patient underwent successful stenting of the RCA with a good angiographic results. On follow-up with him today, 08/07/2018, he is asymptomatic from the cardiovascular standpoint overview. No chest pain or discomfort. No shortness of breath. The right radial artery does have good pulses. He continues to be on dual antiplatelet therapy along with high intensity statin. I would increase the dose of metoprolol to 25 mg by mouth twice a day for better heart rate and blood pressure control. Also the patient need to have a PCI of the left circumflex tomorrow. Objective - Vital Signs Vital signs: Vital Signs Temp 97.8 F 08/07/18 04:00 Pulse 76 08/07/18 07:00 Resp 18 08/07/18 07:00 BP 152/81 08/07/18 07:00 Pulse Ox 94 L 08/07/18 07:00 Intake & Output 08/06/18 08/07/18 08/07/18 18:59 06:59 18:59 Intake Total 600 Output Total 800 1050 Balance -200 -1050 Weight 95.8 kg Intake: Oral 600 Output: Urine 800 1050 Other: Voiding Method Urinal Urinal # Voids 1 - Constitutional General appearance: Present: no acute distress - Respiratory Respiratory: bilateral: CTA - Cardiovascular Rhythm: regular Heart sounds: normal: S1, S2 - Labs CBC & Chem 7: 08/07/18 04:32 08/07/18 04:32 Labs: Abnormal Lab Results - Last 24 Hours (Table) 08/06/18 08/06/18 08/07/18 Range/Units 04:56 10:44 04:32 RBC 2.94 L (4.30-5.90) m/uL Hgb 9.2 L (13.0-17.5) gm/dL Hct 28.9 L (39.0-53.0) % RDW 15.6 H (11.5-15.5) % AST (17-59) U/L Troponin I 47.500 H* 32.100 H* (0.000-0.034) ng/mL Total Protein (6.3-8.2) g/dL Albumin (3.5-5.0) g/dL 08/07/18 Range/Units 04:32 RBC (4.30-5.90) m/uL Hgb (13.0-17.5) gm/dL Hct (39.0-53.0) % RDW (11.5-15.5) % AST 97 H (17-59) U/L Troponin I (0.000-0.034) ng/mL Total Protein 5.7 L (6.3-8.2) g/dL Albumin 3.0 L (3.5-5.0) g/dL Assessment and Plan Assessment: Assessment #[address] patient myocardial infarction #2 status post PCI of the RCA #3 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
[2018-08-07] MEDS: TICAGRELOR 90 MG TAB PO SCH ×2 (09:01→20:04)
[2018-08-07] MEDS: METOPROLOL TARTRATE 25 MG TAB PO SCH ×2 (09:01→20:04)
[2018-08-07] MEDS: LISINOPRIL 2.5 MG TAB PO SCH (09:01)
[2018-08-07] MEDS: ASPIRIN 81 MG PO SCH (09:01)
--- NOTE | 2018-08-07 09:58 | ECHOF ---
Referral Reason:Stents, Per Dr. Sánchez MEASUREMENTS -------- HEIGHT: 170.2 cm WEIGHT: 95.7 kg BP: 152/81 IVSd: 1.3 cm (0.6 - 1.1) LVIDd: 4.0 cm (3.9 - 5.3) LVPWd: 1.4 cm (0.6 - 1.1) IVSs: 1.6 cm LVIDs: 3.0 cm LVPWs: 1.4 cm Ao Diam: 3.2 cm (2.0 - 3.7) AV Cusp: 1.7 cm (1.5 - 2.6) LA Diam: 4.0 cm (2.7 - 3.8) MV EXCURSION: 18.742 mm (> 18.000) MV EF SLOPE: 68 mm/s (70 - 150) EPSS: 0.3 cm MV E Feliciano: 0.94 m/s MV DecT: 202 ms MV A Feliciano: 1.07 m/s MV E/A Ratio: 0.87 RAP: 5.00 mmHg RVSP: 14.41 mmHg FINDINGS -------- Sinus rhythm. This was a techncally difficult study with suboptimal views, , Lumason utilized for enhancement of im ages. The left ventricular size is normal. There is mild concentric left ventricular hypertrophy. Overa ll left ventricular systolic function is low-normal with, an EF between 50 - 55 %. The right ventricle is normal in size. The left atrial size is normal. The right atrial size is normal. 5.0mg OF Lumason UTLIZED: 2 OR MORE WALL SEGMENTS NOT VISUALIZED. The aortic valve was not well visualized. Mild mitral annular calcification present. Mild mitral regurgitation is present. Mild tricuspid regurgitation present. There is no evidence of pulmonary hypertension. The right v entricular systolic pressure, as measured by Doppler, is 14.41mmHg. The pulmonic valve was not well visualized. The aortic root size is normal. There is no pericardial effusion. CONCLUSIONS -------- 1. This was a techncally difficult study with suboptimal views, , Lumason utilized for enhancement of images. 2. The left ventricular size is normal. 3. There is mild concentric left ventricular hypertrophy. 4. Overall left ventricular systolic function is low-normal with, an EF between 50 - 55 %. 5. The right ventricle is normal in size. 6. The left atrial size is normal. 7. The right atrial size is normal. 8. 5.0mg OF Lumason UTLIZED: 2 OR MORE WALL SEGMENTS NOT VISUALIZED. 9. The aortic valve was not well visualized. 10. Mild mitral annular calcification present. 11. Mild mitral regurgitation is present. 12. Mild tricuspid regurgitation present. 13. There is no evidence of pulmonary hypertension. 14. The right ventricular systolic pressure, as measured by Doppler, is 14.41mmHg. 15. The pulmonic valve was not well visualized. 16. The aortic root size is normal. 17. There is no pericardial effusion. CORE BLOWER: Licha Krishna RDCS
--- NOTE | 2018-08-07 11:53 | P.PN ---
Subjective 62-year-old gentleman admitted for establishment of infection patient underwent cardiac ablation and stenting of the RCA and patient will go stenting of LAD today and tomorrow. Patient doesn't have any chest pain patient is clinically doing well Constitutional: Denied any fatigue denied any fever. Cardio vascular: denied any chest pain, palpitations Gastrointestinal denied any nausea vomiting Pulmonary: Denied any shortness of breath cough Neurologic denied any new focal deficits All inpatient medications were reviewed and appropriate changes in these medications as dictated in the interval history and assessment and plan. Objective - Vital Signs Vital signs: Vital Signs Temp 98.1 F 08/07/18 08:00 Pulse 65 08/07/18 11:00 Resp 20 08/07/18 11:00 BP 125/69 08/07/18 11:00 Pulse Ox 96 08/07/18 11:00 Intake & Output 08/06/18 08/07/18 08/07/18 18:59 06:59 18:59 Intake Total 600 300 Output Total 800 1050 Balance -200 -1050 300 Weight 95.8 kg Intake: Intake, IV Titration 100 Amount Magnesium Sulfate-D5w Pmx 100 1 gm In Dextrose/Water 1 100ml.bag @ 100 mls/hr IVPB Q1H [facility] Rx#: [id number] Oral 600 200 Output: Urine 800 1050 Other: Voiding Method Urinal Urinal Urinal # Voids 1 - Exam PHYSICAL EXAMINATION: GENERAL: The patient is alert and oriented x3, not in any acute distress. Well developed, well nourished. HEENT: Pupils are round and equally reacting to light. EOMI. No scleral icterus. No conjunctival pallor. Normocephalic, atraumatic. No pharyngeal erythema. No thyromegaly. CARDIOVASCULAR: S1 and S2 present. No murmurs, rubs, or gallops. PULMONARY: Chest is clear to auscultation, no wheezing or crackles. ABDOMEN: Soft, nontender, nondistended, normoactive bowel sounds. No palpable organomegaly. MUSCULOSKELETAL: No joint swelling or deformity. EXTREMITIES: No cyanosis, clubbing, or pedal edema. NEUROLOGICAL: Gross neurological examination did not reveal any focal deficits. SKIN: No rashes. - Labs CBC & Chem 7: 08/07/18 04:32 08/07/18 04:32 Labs: Abnormal Lab Results - Last 24 Hours (Table) 08/06/18 08/07/18 08/07/18 Range/Units 10:44 04:32 04:32 RBC 2.94 L (4.30-5.90) m/uL Hgb 9.2 L (13.0-17.5) gm/dL Hct 28.9 L (39.0-53.0) % RDW 15.6 H (11.5-15.5) % AST 97 H (17-59) U/L Troponin I 32.100 H* (0.000-0.034) ng/mL Total Protein 5.7 L (6.3-8.2) g/dL Albumin 3.0 L (3.5-5.0) g/dL Assessment and Plan Plan: -Acute ST elevation microinfarction: Patient is a status post cardiac catheterization and stenting of RCA has still the critical disease in circumflex which will be stented today or tomorrow. Echocardiogram showed normal ejection fraction Continue with with you antiplatelet therapy beta lali and a statin -Nicotine abuse: Counseling was provided -Hyperlipidemia -Hypertension
[2018-08-07] MEDS: ATORVASTATIN 80 MG TAB PO SCH (20:04)
[2018-08-08] MEDS: ASPIRIN 81 MG PO SCH (06:00)
[2018-08-08] MEDS: TICAGRELOR 90 MG TAB PO SCH ×2 (06:01→19:21)
[2018-08-08] MEDS: METOPROLOL TARTRATE 25 MG TAB PO SCH ×2 (06:01→19:21)
[2018-08-08] MEDS: LISINOPRIL 2.5 MG TAB PO SCH (06:01)
[2018-08-08] MEDS ORDERED: IV FLUID CONTINUATION 1,000 ML IV ONE (14:19)
[2018-08-08] MEDS ORDERED: MIDAZOLAM 2 MG/2 ML VIAL IV ONE (14:40)
[2018-08-08] MEDS: VERAPAMIL SYRINGE (5 MG/10 ML) INTRAARTER ONE ×2 (14:42→14:57)
[2018-08-08] MEDS ORDERED: BIVALIRUDIN BOLUS 250 MG/50 ML IV ONE (14:43)
[2018-08-08] MEDS ORDERED: BIVALIRUDIN 250 MG in SODIUM CHLORIDE 0.9% 50 ML IV ONE (14:44)
[2018-08-08] MEDS ORDERED: NITROGLYCERIN 1000MCG/10ML SYRINGE INTRACORON ONE (14:55)
[2018-08-08] MEDS ORDERED: IOPAMIDOL-370 125ML BTL INJ ONE (14:56)
[2018-08-08] MEDS ORDERED: ZOLPIDEM 5 MG TAB PO PRN (15:01)
[2018-08-08] MEDS ORDERED: RX INFO: IV CONTRAST WAS GIVEN 1 EACH MISC MISCELLANE PRN (15:01)
[2018-08-08] MEDS ORDERED: ATROPINE SULFATE 0.1 MG/ML 10ML SYRINGE IV PRN (15:01)
[2018-08-08] MEDS ORDERED: MAG HYDROX/AL HYDROX/SIMETH 30 ML CUP PO PRN (15:01)
[2018-08-08] MEDS ORDERED: NITROGLYCERIN SL TABS 0.4 MG TAB SUBLINGUAL PRN (15:01)
[2018-08-08] MEDS ORDERED: SODIUM CHLORIDE 0.9% 1,000 ML IV SCH (15:15)
--- NOTE | 2018-08-08 15:27 | PTCA ---
PERCUTANEOUSTRANS CORORONARY ANGIOGRAPHY DATE OF SERVICE: 08/08/2018 PERFORMING PHYSICIAN: Mike Siegel MD, [employer] Assembly Machine Tender. PROCEDURE PERFORMED: Successful stenting of the proximal left circumflex using 4.0 x 15 mm Xience drug- eluting stent with good angiographic results. INDICATION: This is a pleasant 62-year-old gentleman who presented to the hospital a couple of days ago with acute inferior ST-elevation myocardial infarction and was found to have occluded RCA distally. He underwent successful PCI of the right coronary artery and was found to have an ulcerated lesion involving the proximal left circumflex and he was brought today to undergo PCI of the left circumflex. APPROACH: Right radial artery. COMPLICATION: None. LEVEL OF SEDATION: Moderate sedation length of 20 minutes. PROCEDURE DESCRIPTION: After obtaining an informed consent, the patient was brought to the cardiac crime lab technician. The right radial artery was cannulated using micropuncture technique and a micropuncture wire passed easily, then I placed a 6-Cambodian sheath in the right radial artery. After that I did I did start anticoagulation using Angiomax. Subsequently, I did engage the left main using JL3.5 guide. A run-through wire was used to wire the left circumflex. After that, I did direct stenting on the lesion using a 4.0 x 15 mm Xience drug-eluting stent where the stent was positioned under fluoroscopy guidance and deployed under 12 atmospheres for 20 seconds. The following angiogram showed good angiographic results and the procedure was completed without any complication. POSTPROCEDURE MANAGEMENT: 1. Dual anti-platelet therapy. 2. Risk factors modifications. 3. Follow up with the patient. MMODL / IJN: [id number] /
--- NOTE | 2018-08-08 18:42 | P.PN ---
Subjective 62-year-old gentleman admitted for establishment of infection patient underwent cardiac ablation and stenting of the RCA and patient will go stenting of LAD today and tomorrow. Patient doesn't have any chest pain patient is clinically doing well 08/08/2007 Patient underwent stenting of proximal left circumflex as well. Constitutional: Denied any fatigue denied any fever. Cardio vascular: denied any chest pain, palpitations Gastrointestinal denied any nausea vomiting Pulmonary: Denied any shortness of breath cough Neurologic denied any new focal deficits All inpatient medications were reviewed and appropriate changes in these medications as dictated in the interval history and assessment and plan. Objective - Vital Signs Vital signs: Vital Signs Temp 98.2 F 08/08/18 16:30 Pulse 76 08/08/18 18:20 Resp 16 08/08/18 18:20 BP 163/78 08/08/18 18:20 Pulse Ox 96 08/08/18 18:20 Intake & Output 08/07/18 08/08/18 08/08/18 18:59 06:59 18:59 Intake Total 300 100 Output Total 900 1200 Balance -600 -1100 Weight 94 kg Intake: IV 100 Intake, IV Titration 100 Amount Magnesium Sulfate-D5w Pmx 100 1 gm In Dextrose/Water 1 100ml.bag @ 100 mls/hr IVPB Q1H MAXIME Rx#: [id number] Oral 200 Output: Urine 900 1200 Other: Voiding Method Urinal Toilet Toilet Urinal Urinal # Voids 1 1 - Exam PHYSICAL EXAMINATION: GENERAL: The patient is alert and oriented x3, not in any acute distress. Well developed, well nourished. HEENT: Pupils are round and equally reacting to light. EOMI. No scleral icterus. No conjunctival pallor. Normocephalic, atraumatic. No pharyngeal erythema. No thyromegaly. CARDIOVASCULAR: S1 and S2 present. No murmurs, rubs, or gallops. PULMONARY: Chest is clear to auscultation, no wheezing or crackles. ABDOMEN: Soft, nontender, nondistended, normoactive bowel sounds. No palpable organomegaly. MUSCULOSKELETAL: No joint swelling or deformity. EXTREMITIES: No cyanosis, clubbing, or pedal edema. NEUROLOGICAL: Gross neurological examination did not reveal any focal deficits. SKIN: No rashes. - Labs CBC & Chem 7: 08/07/18 04:32 08/07/18 04:32 Assessment and Plan Plan: -Acute ST elevation microinfarction: Patient is a status post cardiac catheterization and stenting of RCA has still the critical disease in circumflex for which patient underwent stenting today Echocardiogram showed normal ejection fraction Continue with with you antiplatelet therapy beta lali and a statin -Nicotine abuse: Counseling was provided -Hyperlipidemia -Hypertension
[2018-08-08] MEDS: ATORVASTATIN 80 MG TAB PO SCH (19:21)
[2018-08-08 19:25] VITALS: RESP 18
[2018-08-09] MEDS: METOPROLOL TARTRATE 25 MG TAB PO SCH (08:47)
[2018-08-09] MEDS: ASPIRIN 81 MG PO SCH (08:47)
[2018-08-09] MEDS: TICAGRELOR 90 MG TAB PO SCH (08:47)
[2018-08-09] MEDS: LISINOPRIL 2.5 MG TAB PO SCH (08:47)
[2018-08-09 09:43] VITALS: BMI 32.3
[2018-08-09 12:14] VITALS: BP 113/56; PULSE 74; TEMP 97.7
--- NOTE | 2018-08-09 12:56 | P.DS ---
Providers Date of admission: 08/05/18 15:00 Attending physician: Merari Carcamo Consults: 08/06/18 03:34 Consult Physician Routine Consulting Provider: Te[facility] Consult Reason/Comments: medical management Do you want consulting provider notified?: Yes, Notify in am Placement Type Exists?: Yes 08/07/18 10:21 Consult Physician Routine Consulting Provider: Mike Siegel Consult Reason/Comments: cardiac cath Do you want consulting provider notified?: Already Contacted 08/08/18 15:01 Consult Physician Routine Consulting Provider: [facility] Consult Reason/Comments: Post Interventional patient Do you want consulting provider notified?: Already Contacted Primary care physician: Tiffani Arellano [facility] Course: Patient is admitted for ST elevation microinfarction underwent cardiac catheterization and stenting of RCA as well as circumflex. Patient is chest pain-free. Patient will be discharged today patient is wheezing a little bit patient does have COPD with acute exacerbation nicotine cessation counseling was provided patient inhaled steroids and albuterol and ipratropium patient presently will not require any oral steroids or antibiotics PHYSICAL EXAMINATION: GENERAL: The patient is alert and oriented x3, not in any acute distress. Well developed, well nourished. HEENT: Pupils are round and equally reacting to light. EOMI. No scleral icterus. No conjunctival pallor. Normocephalic, atraumatic. No pharyngeal erythema. No thyromegaly. CARDIOVASCULAR: S1 and S2 present. No murmurs, rubs, or gallops. PULMONARY: Minimal expiratory wheezing ABDOMEN: Soft, nontender, nondistended, normoactive bowel sounds. No palpable organomegaly. MUSCULOSKELETAL: No joint swelling or deformity. EXTREMITIES: No cyanosis, clubbing, or pedal edema. NEUROLOGICAL: Gross neurological examination did not reveal any focal deficits. SKIN: No rashes. -Acute ST elevation myocardial infarction -COPD with mild acute exacerbation -nicotine abuse -Hyperlipidemia -Hypertension Plan - Discharge Summary Discharge Rx Participant: Yes New Discharge Prescriptions: New Atorvastatin [Lipitor] 80 mg PO HS #30 tab Lisinopril [Zestril] 2.5 mg PO DAILY #30 tab Metoprolol Tartrate [Lopressor] 25 mg PO BID #60 tab Nitroglycerin Sl Tabs [Nitrostat] 0.4 mg SUBLINGUAL Q5M PRN #25 tab PRN Reason: Chest Pain Ticagrelor [Brilinta] 90 mg PO BID #60 tab Albuterol Inhaler [Ventolin Hfa Inhaler] 1 - 2 puff INHALATION Q6HR PRN #1 inhaler PRN Reason: Shortness Of Breath Or Wheezing Budesonide-Formot 160-4.5 Mcg [Symbicort 160-4.5 Mcg Inhaler] 2 puff INHALATION BID #1 inhaler Tiotropium [place] [Spiriva] 1 cap INHALATION DAILY #1 device Continue Aspirin EC [Ecotrin Low Dose] 162 mg PO DAILY Sertraline [Zoloft] 50 mg PO DAILY 30 Days tab Discharge Medication List Aspirin EC [Ecotrin Low Dose] 162 mg PO DAILY 09/25/16 [History] Sertraline [Zoloft] 50 mg PO DAILY 30 Days tab 09/28/16 [Rx] Albuterol Inhaler [Ventolin Hfa Inhaler] 1 - 2 puff INHALATION Q6HR PRN #1 inhaler 08/09/18 [Rx] Atorvastatin [Lipitor] 80 mg PO HS #30 tab 08/09/18 [Rx] Budesonide-Formot 160-4.5 Mcg [Symbicort 160-4.5 Mcg Inhaler] 2 puff INHALATION BID #1 inhaler 08/09/18 [Rx] Lisinopril [Zestril] 2.5 mg PO DAILY #30 tab 08/09/18 [Rx] Metoprolol Tartrate [Lopressor] 25 mg PO BID #60 tab 08/09/18 [Rx] Nitroglycerin Sl Tabs [Nitrostat] 0.4 mg SUBLINGUAL Q5M PRN #25 tab 08/09/18 [Rx ] Ticagrelor [Brilinta] 90 mg PO BID #60 tab 08/09/18 [Rx] Tiotropium [place] [Spiriva] 1 cap INHALATION DAILY #1 device 08/09/18 [Rx] Follow up Appointment(s)/Referral(s): Mike Siegel MD [STAFF PHYSICIAN] - 1 Week (Spoke to administrative assistant receptionist. Office will call with appointment time) Tiffani Arellano MD [Primary Care Provider] - 08/15/18 11:30 am (tuesday) Patient Instructions/Handouts: *Surgery [facility] - After Heart Catheterization - [facility] [place] Instructions, Left Heart Catheterization (DC) Activity/Diet/Wound Care/Special Instructions: Pt would like dc rx at discharge. [place] copay is $25/mo Discharge Disposition: HOME SELF-CARE
--- NOTE | 2018-08-09 13:09 | P.PN ---
Subjective Progress Note Date: 08/09/18 This is a 62-year-old gentleman with history of smoking who presented to the hospital with an acute inferior ST elevation myocardial infarction. He underwent angioplasty with stenting of the RCA as well as the circumflex artery. He was seen and examined this morning, denies any chest pain or difficulty in breathing. Hemodynamically he is stable. EKG shows normal sinus rhythm with no changes from post-PCI. I pressure 114/56 with a heart rate of 90 , 96% on room air. Objective - Vital Signs Vital signs: Vital Signs Temp 97.7 F 08/09/18 12:00 Pulse 74 08/09/18 12:00 Resp 18 08/09/18 12:00 BP 113/56 08/09/18 12:00 Pulse Ox 96 08/09/18 12:00 Intake & Output 08/08/18 08/09/18 08/09/18 18:59 06:59 18:59 Intake Total 100 Output Total 1200 200 Balance -1100 -200 Weight 93.8 kg 93.8 kg Intake: IV 100 Output: Urine 1200 200 Other: Voiding Method Toilet Toilet Toilet Urinal Urinal Urinal - Exam PHYSICAL EXAMINATION: GENERAL: 62-year-old gentleman in no acute distress at the time of my examination HEENT: Head is atraumatic, normocephalic. Pupils equal, round. Sclera anicteric. Conjunctiva are clear. Mucous membranes of the mouth are moist. Neck is supple. There is no elevated jugular venous pressure. No carotid bruit is heard. HEART EXAMINATION: Heart S1, S2 normal. No murmur or gallop heard. CHEST EXAMINATION: Lungs are clear to auscultation and precussion. No chest wall tenderness is noted on palpation or with deep breathing. ABDOMEN: Soft, nontender. Bowel sounds are heard. No organomegaly noted. EXTREMITIES: 2+ peripheral pulses with no evidence of peripheral edema and no calf tenderness noted. Right radial site clean and dry, good distal pulse. NEUROLOGIC patient is awake, alert and oriented X3. . - Labs CBC & Chem 7: 08/07/18 04:32 08/09/18 05:49 Assessment and Plan Plan: Assessment and plan #[address] patient myocardial infarction #2 status post PCI of the RCA and circumflex artery #3Nicotine dependence #4 Hyperlipidemia Plan From cardiology's perspective, patient may be able to be discharged home today. A follow-up appointment will be made with Dr. Sánchez in the office post discharge. The patient will be discharged home on aspirin 81 mg daily, Lipitor 80 mg daily, Zestril 2.5 mg daily, metoprolol 25 mg one tablet by mouth twice a day, Brilinta 90 mg twice a day and sublingual nitroglycerin as needed for chest pain. DNP note has been reviewed, I agree with a documented findings and plan of care. Patient was seen and examined.
== END 2018-08-09 14:03 | disposition home or self-care (01) | DRG 247 ==
LOC: EC 14:51 → 2SICU 15:00 → 3SCARD 08-07 17:40
PROVIDERS: ADMIT Internal Medicine Interventional Cardiology; ATTEND Internal Medicine
PROC: B2111ZZ Fluoroscopy of Multiple Coronary Arteries using Low Osmolar Contrast (ICD-10-PCS; 2018-08-05)
PROC: 4A023N7 Measurement of Cardiac Sampling and Pressure, Left Heart, Percutaneous Approach (ICD-10-PCS; principal; 2018-08-05 15:30)
PROC: 027034Z Dilation of Coronary Artery, One Artery with Drug-eluting Intraluminal Device, Percutaneous Approach (ICD-10-PCS; 2018-08-05 15:30)
PROC: 027034Z Dilation of Coronary Artery, One Artery with Drug-eluting Intraluminal Device, Percutaneous Approach (ICD-10-PCS; 2018-08-08)
DX: I21.19 ST elevation (STEMI) myocardial infarction involving other coronary artery of inferior wall (principal); J44.1 Chronic obstructive pulmonary disease with (acute) exacerbation; I25.10 Atherosclerotic heart disease of native coronary artery without angina pectoris; I10 Essential (primary) hypertension; F17.200 Nicotine dependence, unspecified, uncomplicated; E78.5 Hyperlipidemia, unspecified; Z71.6 Tobacco abuse counseling; Z79.82 Long term (current) use of aspirin; Z79.899 Other long term (current) drug therapy; Z98.890 Other specified postprocedural states
CPT/HCPCS: 71045; 80048; 80053; 82550; 82553; 82565; 83735; 84100; 84484; 85025; 85610; 85730; 93306; 93458; 94760; 96374; 99285; C1874

== ENCOUNTER 2018-09-16 12:57 | Inpatient (IN) | payer OTHER ==
[2018-09-16] MEDS ORDERED: SODIUM CHLORIDE 0.9% 1,000 ML IV STA (13:22)
--- NOTE | 2018-09-16 13:27 | ED ---
GI Bleed HPI - General Chief complaint: GI Bleed Stated complaint: Rectal Bleeding Time Seen by Provider: 09/16/18 13:08 Source: patient, family Mode of arrival: wheelchair Limitations: no limitations - History of Present Illness Initial comments: Patient is a 62-year-old male presenting for rectal bleeding. The patient states that he is also been having diarrhea since yesterday and the rectal bleeding started off as a darker red blood but now it is bright. He states that he takes Prolixin 10 aspirin secondary to the heart disease and cardiac stents. He states that he is been having some dizziness as well but no chest pain or shortness of breath. He states that just prior to coming in the room, he started having some abdominal pain which is sharp and located upper portion of his abdomen. It did not radiate. He also states that he had been having diarrhea about every 0.5 hours. - Related Data Home Medications Medication Instructions Recorded Confirmed Aspirin EC [Ecotrin Low Dose] 81 mg PO BID 09/25/16 09/16/18 Atorvastatin [Lipitor] 80 mg PO DAILY 09/16/18 09/16/18 Tiotropium [place] [Spiriva] 1 cap INHALATION RT-DAILY 09/16/18 09/16/18 Previous Rx's Medication Instructions Recorded Albuterol Inhaler [Ventolin Hfa 1 - 2 puff INHALATION Q6HR PRN #1 08/09/18 Inhaler] inhaler Lisinopril [Zestril] 2.5 mg PO DAILY #30 tab 08/09/18 Metoprolol Tartrate [Lopressor] 25 mg PO BID #60 tab 08/09/18 Nitroglycerin Sl Tabs [Nitrostat] 0.4 mg SUBLINGUAL Q5M PRN #25 tab 08/09/18 Ticagrelor [Brilinta] 90 mg PO BID #60 tab 08/09/18 Allergies Allergy/AdvReac Type Severity Reaction Status Date / Time budesonide [From Symbicort] Allergy Swelling Verified 09/16/18 13:26 formoterol [From Symbicort] Allergy Swelling Verified 09/16/18 13:26 Review of Systems ROS Statement: Those systems with pertinent positive or pertinent negative responses have been documented in the HPI. Constitutional: Negative for chills, fatigue and fever. HENT: Negative for congestion. Respiratory: Negative for chest tightness, shortness of breath and wheezing. Negative for cough Cardiovascular: Negative for chest pain and palpitations. Gastrointestinal: Positive for abdominal pain. Negative for abdominal distention, nausea and vomiting. Positive for diarrhea and rectal bleeding Genitourinary: Negative for dysuria. Musculoskeletal: Negative for back pain, neck pain and neck stiffness. Skin: Negative for color change. Neurological: Positive for dizziness, negative for speech difficulty, weakness and light-headedness. Psychiatric/Behavioral: Negative for agitation and confusion. Negative for anxiety ROS Other: All systems not noted in ROS Statement are negative. Past Medical History Past Medical History: Coronary Artery Disease (CAD), COPD, Hyperlipidemia, Edward cardial Infarction (CT) Additional Past Medical History / Comment(s): states has not seen a dr in many years per significant weight loss in the past year History of Any Multi-Drug Resistant Organisms: None Reported Past Surgical History: Heart Catheterization With Stent, Hernia Repair Past Psychological History: No Psychological Hx Reported Smoking Status: Current every day smoker Past Alcohol Use History: None Reported Past Drug Use History: None Reported General Exam - General Exam Comments Initial Comments: Constitutional: Pt appears well-developed and well-nourished. No distress. Head: Normocephalic and atraumatic. Eyes: EOM are normal. Neck: Normal range of motion. Neck supple. Cardiovascular: Normal rate, regular rhythm, S1 normal, S2 normal and normal heart sounds. Exam reveals no gallop and no friction rub. No murmur heard. Pulmonary/Chest: Effort normal and breath sounds normal. No tachypnea and no bradypnea. No respiratory distress. No wheezes or rales noted. Abdominal: Soft. Bowel sounds are normal. Pt exhibits no shifting dullness, no distension, no pulsatile liver, no fluid wave, no abdominal bruit and no ascites. There is no rigidity, no rebound, no guarding, no tenderness at McBurney's point and negative Bruno's sign. There is no tenderness. Musculoskeletal: Normal range of motion. : Positive guaiac Neurological: Pt is alert and oriented to person, place, and time. No cranial nerve deficit. Skin: Skin is warm and dry. No rash noted. Pt is not diaphoretic. No erythema. No pallor. Psychiatric: Pt has a normal mood and affect. Pt behavior is normal. Thought content normal. Limitations: no limitations Course Vital Signs 09/16/18 13:00 Temperature 97.8 F Pulse Rate 72 Respiratory 18 Rate Blood Pressure 105/63 O2 Sat by Pulse 97 Oximetry Medical Decision Making - Medical Decision Making Laboratory studies showed that hemoglobin was trending downward 9.1 and previous measurement and 2017 was 14.7. Additionally, there was no evidence of cardiac etiology such as over troponin. Guaiac test was grossly positive with both melena and hematochezia. Therefore, the patient will be admitted to the hospital for continued evaluation and treatment especially since he is on aspirin and Proventil. Patient has also been given Protonix. Explained all labs and diagnostic test results and that we will admit patient to hospital. Pt is agreeable to plan and case has been discussed with Dr. Armenta and they agree to accept the pt. - Lab Data Result diagrams: 09/16/18 13:40 09/16/18 13:40 Lab Results 09/16/18 09/16/18 09/16/18 Range/Units 13:40 13:40 13:40 WBC 9.7 (3.8-10.6) k/uL RBC 3.41 L (4.30-5.90) m/uL Hgb 10.5 L (13.0-17.5) gm/dL Hct 32.5 L (39.0-53.0) % MCV 95.3 (80.0-100.0) fL MCH 30.7 (25.0-35.0) pg MCHC 32.2 (31.0-37.0) g/dL RDW 15.1 (11.5-15.5) % Plt Count 247 (150-450) k/uL Neutrophils % 80 % Lymphocytes % 12 % Monocytes % 5 % Eosinophils % 1 % Basophils % 0 % Neutrophils # 7.7 (1.3-7.7) k/uL Lymphocytes # 1.2 (1.0-4.8) k/uL Monocytes # 0.4 (0-1.0) k/uL Eosinophils # 0.0 (0-0.7) k/uL Basophils # 0.0 (0-0.2) k/uL Hypochromasia Slight APTT (22.0-30.0) sec Sodium 138 (137-145) mmol/L Potassium 5.1 (3.5-5.1) mmol/L Chloride 105 (98-107) mmol/L Carbon Dioxide 26 (22-30) mmol/L Anion Gap 7 mmol/L BUN 31 H (9-20) mg/dL Creatinine 1.20 (0.66-1.25) mg/dL Est GFR (CKD-EPI)AfAm 75 (>60 ml/min/1.73 sqM) Est GFR (CKD-EPI)NonAf 65 (>60 ml/min/1.73 sqM) Glucose 104 H (74-99) mg/dL Plasma Lactic Acid [place] 1.7 (0.7-2.0) mmol/L Calcium 9.2 (8.4-10.2) mg/dL Magnesium 1.8 (1.6-2.3) mg/dL Total Bilirubin 1.1 (0.2-1.3) mg/dL AST 20 (17-59) U/L ALT 29 (21-72) U/L Alkaline Phosphatase 72 (38-126) U/L Troponin I (0.000-0.034) ng/mL Total Protein 6.2 L (6.3-8.2) g/dL Albumin 3.5 (3.5-5.0) g/dL Lipase 140 (23-300) U/L 09/16/18 09/16/18 Range/Units 13:40 13:40 WBC (3.8-10.6) k/uL RBC (4.30-5.90) m/uL Hgb (13.0-17.5) gm/dL Hct (39.0-53.0) % MCV (80.0-100.0) fL MCH (25.0-35.0) pg MCHC (31.0-37.0) g/dL RDW (11.5-15.5) % Plt Count (150-450) k/uL Neutrophils % % Lymphocytes % % Monocytes % % Eosinophils % % Basophils % % Neutrophils # (1.3-7.7) k/uL Lymphocytes # (1.0-4.8) k/uL Monocytes # (0-1.0) k/uL Eosinophils # (0-0.7) k/uL Basophils # (0-0.2) k/uL Hypochromasia APTT 21.6 L (22.0-30.0) sec Sodium (137-145) mmol/L Potassium (3.5-5.1) mmol/L Chloride (98-107) mmol/L Carbon Dioxide (22-30) mmol/L Anion Gap mmol/L BUN (9-20) mg/dL Creatinine (0.66-1.25) mg/dL Est GFR (CKD-EPI)AfAm (>60 ml/min/1.73 sqM) Est GFR (CKD-EPI)NonAf (>60 ml/min/1.73 sqM) Glucose (74-99) mg/dL Plasma Lactic Acid [place] (0.7-2.0) mmol/L Calcium (8.4-10.2) mg/dL Magnesium (1.6-2.3) mg/dL Total Bilirubin (0.2-1.3) mg/dL AST (17-59) U/L ALT (21-72) U/L Alkaline Phosphatase (38-126) U/L Troponin I <0.012 (0.000-0.034) ng/mL Total Protein (6.3-8.2) g/dL Albumin (3.5-5.0) g/dL Lipase (23-300) U/L - EKG Data EKG Comments: EKG shows normal sinus rhythm with a rate of 63 bpm, TN interval 114, QRS 76, QTC 413. There are no significant ST depressions or elevations noted. Disposition Clinical Impression: GI bleed, Anemia Disposition: ADMITTED IP TO THIS [facility] Condition: Good Referrals: Tiffani Arellano MD [Primary Care Provider] - 1-2 days Decision to Admit Reason: Admit from EC Decision Date: 09/16/18 Decision Time: 17:38
[2018-09-16 14:01] LABS: Basophils % (A) 0 %; Eosinophils % (A) 1 %; HCT 32.5 % (39.0-53.0); HGB 10.5 gm/dL (13.0-17.5); Hypochromasia Slight; Lymphocytes # (A) 1.2 k/uL (1.0-4.8); Lymphocytes % (A) 12 %; MCH 30.7 pg (25.0-35.0); MCHC 32.2 g/dL (31.0-37.0); MCV 95.3 fL (80.0-100.0); Monocytes # (A) 0.4 k/uL (0-1.0); Monocytes % (A) 5 %; Neutrophils # (A) 7.7 k/uL (1.3-7.7); Neutrophils % (A) 80 %; Platelet Count 247 k/uL (150-450); RBC 3.41 m/uL (4.30-5.90); RDW 15.1 % (11.5-15.5); WBC 9.7 k/uL (3.8-10.6)
[2018-09-16 14:15] LABS: Albumin 3.5 g/dL (3.5-5.0); Calcium 9.2 mg/dL (8.4-10.2); Magnesium 1.8 mg/dL (1.6-2.3); Potassium 5.1 mmol/L (3.5-5.1); Total Bilirubin 1.1 mg/dL (0.2-1.3); Total Protein 6.2 g/dL (6.3-8.2)
--- NOTE | 2018-09-16 16:14 | CT ---
EXAMINATION TYPE: CT abdomen pelvis w con DATE OF EXAM: 09/16/2018 COMPARISON: None HISTORY: Diarrhea with blood CT DLP: 1477.1 mGycm Automated exposure control for dose reduction was used. TECHNIQUE: Helical acquisition of images was performed from the lung bases through the pelvis. CONTRAST: Performed without Oral Contrast and with IV Contrast, patient injected with 100 mL of Isovue 300. FINDINGS: LUNG BASES: No significant abnormality is appreciated. LIVER/GB: Homogeneous in enhancement. No cholelithiasis. PANCREAS: No peripancreatic fat stranding. No ductal dilatation. SPLEEN: No significant abnormality is seen. ADRENALS: No significant abnormality is seen. KIDNEYS: No hydronephrosis or nephrolithiasis. Bilateral renal sinus cysts are seen, left greater wan n right. FREE AIR: No free air is visualized. REPRODUCTIVE ORGANS: SA gland is enlarged with heterogenous subtle zone calcifications. URINARY BLADDER: No significant abnormality is seen. PELVIC ADENOPATHY: Moderate multilevel degenerative changes of the spine are noted as well as degene rative changes of the femoral acetabular joints. OSSEOUS STRUCTURES: No significant abnormality is seen. BOWEL: There is a very large right inguinal hernia extending into the scrotal sac containing numerou s loops of both small and large bowel including the cecum, terminal ileum and appendix. No dilated la rge or small bowel. There is malpositioning of the proximal bowel as it courses towards the right par tially secondary to the hernia defect. VASCULATURE: There is an infrarenal abdominal aortic aneurysm measuring 3.7 x 3.9 x 3.7 cm and anteri or posterior by transverse by craniocaudal dimension. Moderate atherosclerosis is seen of the abdomin al aorta and its branches. This abdominal aortic aneurysm does extend into the common iliac vasculatu re with the left common iliac artery measuring 2.6 cm and the right measuring 1.9 cm proximally with downstream dilatation of 2.5 cm. IMPRESSION: 1. LARGE RIGHT INGUINAL HERNIA WITH EXTENSION OF NUMEROUS LOOPS OF NONDILATED SMALL BOWEL AND LARGE B OWEL INCLUDING THE COLON AND APPENDIX INTO THE SCROTAL SAC. THERE IS TWISTING OF THE MESENTERY AND VA SCULATURE AND ALTHOUGH NO CURRENT OBSTRUCTION IS SEEN THERE IS CONCERN FOR IMPENDING OBSTRUCTION T HE DUODENUM IS DISPLACED TOWARDS THE RIGHT LOWER QUADRANT. 2. INFRARENAL ABDOMINAL AORTIC ANEURYSM EXTENDING INTO THE COMMON ILIAC VASCULATURE.
[2018-09-16] MEDS ORDERED: NALOXONE 0.4 MG/ML 1 ML VIAL IV PRN (17:32)
[2018-09-16] MEDS ORDERED: MORPHINE SULFATE 4 MG/ML SYRINGE IV PRN (17:32)
[2018-09-16] MEDS ORDERED: ONDANSETRON 4 MG/2 ML VIAL IVP PRN (17:32)
[2018-09-16] MEDS: METOPROLOL TARTRATE 25 MG TAB PO SCH (21:35)
[2018-09-17 03:50] VITALS: BMI 34.1
[2018-09-17] MEDS: METOPROLOL TARTRATE 25 MG TAB PO SCH ×2 (07:29→21:04)
[2018-09-17] MEDS ORDERED: ALBUTEROL NEBULIZED 2.5 MG/3 ML INHALATION PRN (09:58)
[2018-09-17] MEDS ORDERED: NITROGLYCERIN SL TABS 0.4 MG TAB SUBLINGUAL PRN (09:58)
[2018-09-17] MEDS: IPRATROPIUM 0.5 MG/2.5 ML NEBU INHALATION SCH ×4 (12:19→20:26)
--- NOTE | 2018-09-17 13:09 | P.HPIM ---
History of Present Illness Patient is a pleasant 62-year-old came in with complaints of rectal bleeding patient history is not clearly it appear like patient has mona bright red blood per rectum when questioned about.stools he did say.but it's bright red and mostly blood. Patient is also comparing of epigastric abdominal pain sharp only lasted for few minutes. Patient has recent cardiac catheterization and stent to RCA patient was advised to quit smoking he was trying but the and he used to smoke until he came to ER. Patient is on dual antiplatelet therapy which is temporarily being held. Patient the had multiple bowel movements on Tuesday some yesterday none today. Patient denied any fever chills nausea vomiting patient denied any hematemesis. Review of Systems REVIEW OF SYSTEMS: CONSTITUTIONAL: No fever, no malaise, no fatigue. HEENT: No recent visual problems or hearing problems. Denied any sore throat. CARDIOVASCULAR: No chest pain, orthopnea, PND, no palpitations, no syncope. PULMONARY: No shortness of breath, no cough, no hemoptysis. GASTROINTESTINAL: As mentioned in HPI NEUROLOGICAL: No headaches, no weakness, no numbness. HEMATOLOGICAL: Denies any bleeding or petechiae. GENITOURINARY: Denies any burning micturition, frequency, or urgency. MUSCULOSKELETAL/RHEUMATOLOGICAL: Denies any joint pain, swelling, or any muscle pain. ENDOCRINE: Denies any polyuria or polydipsia. The rest of the 14-point review of systems is negative. Past Medical History Past Medical History: Coronary Artery Disease (CAD), COPD, Hyperlipidemia, Myocardial Infarction ([place]) Additional Past Medical History / Comment(s): . Last Myocardial Infarction Date:: 07/2018 History of Any Multi-Drug Resistant Organisms: None Reported Past Surgical History: Heart Catheterization With Stent, Hernia Repair Past Anesthesia/Blood Transfusion Reactions: No Reported Reaction Date of Last Stent Placement:: 07/2018 Past Psychological History: No Psychological Hx Reported Smoking Status: Current every day smoker Past Alcohol Use History: None Reported Past Drug Use History: None Reported - Past Family History Father Family Medical History: Hypertension Medications and Allergies Home Medications Medication Instructions Recorded Confirmed Type Aspirin EC [Ecotrin Low Dose] 81 mg PO BID 09/25/16 09/16/18 History Albuterol Inhaler [Ventolin Hfa 1 - 2 puff INHALATION Q6HR PRN #1 08/09/18 09/16/18 Rx Inhaler] inhaler Lisinopril [Zestril] 2.5 mg PO DAILY #30 tab 08/09/18 09/16/18 Rx Metoprolol Tartrate [Lopressor] 25 mg PO BID #60 tab 08/09/18 09/16/18 Rx Nitroglycerin Sl Tabs [Nitrostat] 0.4 mg SUBLINGUAL Q5M PRN #25 tab 08/09/18 09/16/18 Rx Ticagrelor [Brilinta] 90 mg PO BID #60 tab 08/09/18 09/16/18 Rx Atorvastatin [Lipitor] 80 mg PO DAILY 09/16/18 09/16/18 History Tiotropium [place] [Spiriva] 1 cap INHALATION RT-DAILY 09/16/18 09/16/18 History Allergies Allergy/AdvReac Type Severity Reaction Status Date / Time budesonide [From Symbicort] Allergy Swelling Verified 09/16/18 13:26 formoterol [From Symbicort] Allergy Swelling Verified 09/16/18 13:26 Physical Exam Vitals: Vital Signs Temp Pulse Pulse Resp BP BP Pulse Ox 09/17/18 12:28 68 09/17/18 12:19 68 09/17/18 08:00 18 09/17/18 05:01 98.3 F 66 18 107/55 94 L 09/17/18 00:00 18 09/16/18 21:50 97.9 F 69 18 121/60 97 09/16/18 18:25 97.9 F 09/16/18 18:00 72 12 112/56 97 09/16/18 17:00 67 12 117/65 98 09/16/18 16:00 65 11 L 108/49 98 09/16/18 15:00 62 13 108/49 98 09/16/18 14:00 61 13 108/49 97 09/16/18 13:50 60 12 98 09/16/18 13:00 97.8 F 72 18 105/63 97 Intake and Output 09/16/18 09/17/18 09/17/18 21:59 06:59 14:59 Intake Total Balance Intake: Oral Other: # Voids 2 # Bowel Movements PHYSICAL EXAMINATION: GENERAL: The patient is alert and oriented x3, not in any acute distress. Well developed, well nourished. HEENT: Pupils are round and equally reacting to light. EOMI. No scleral icterus. No conjunctival pallor. Normocephalic, atraumatic. No pharyngeal erythema. No thyromegaly. CARDIOVASCULAR: S1 and S2 present. No murmurs, rubs, or gallops. PULMONARY: Chest is clear to auscultation, no wheezing or crackles. ABDOMEN: Soft, nontender, nondistended, normoactive bowel sounds. No palpable organomegaly. MUSCULOSKELETAL: No joint swelling or deformity. EXTREMITIES: No cyanosis, clubbing, or pedal edema. NEUROLOGICAL: Gross neurological examination did not reveal any focal deficits. SKIN: No rashes. Results CBC & Chem 7: 09/16/18 13:40 09/16/18 13:40 Labs: Abnormal Lab Results - Last 24 Hours (Table) 09/16/18 09/16/18 09/16/18 Range/Units 13:40 13:40 13:40 RBC 3.41 L (4.30-5.90) m/uL Hgb 10.5 L (13.0-17.5) gm/dL Hct 32.5 L (39.0-53.0) % APTT 21.6 L (22.0-30.0) sec BUN 31 H (9-20) mg/dL Glucose 104 H (74-99) mg/dL Total Protein 6.2 L (6.3-8.2) g/dL Thrombosis Risk Factor Assmnt - Choose All That Apply Any of the Below Risk Factors Present?: Yes Each Factor Represents 1 point: Abnormal pulmonary function (COPD), Minor surgery planned, Obesity (BMI >25) Other Risk Factors: Yes Each Risk Factor Represents 2 Points: Age 61-74 years Thrombosis Risk Factor Assessment Total Risk Factor Score: 5 Thrombosis Risk Factor Assessment Level: High Risk Assessment and Plan Plan: -GI bleed: He appears to be lower GI bleed patient's symptomology is not cleared up with GI bleed cannot be ruled out testing his epigastric abdominal pain patient was started on Protonix J will evaluated the patient hold off on antiplatelet therapy temporally but need to be resumed as soon as possible patient did take his antiplatelet medications as today. Patient had a recent cardiac catheterization and stenting same thing will be discussed with gastroenterology. Patient will be closely monitored for any GI bleed noted that patient's previous hemoglobin about couple months ago is 9.5 -Acute renal failure: Secondary to GI bleed: Patient will continue on IV fluids hold off on lisinopril, repeat the basic metabolic profile and CBC tomorrow -Coronary artery disease recent cardiac catheterization and stenting, patient will be resumed on antiplatelet therapy as soon as possible -Continued nicotine use: Counseling was provided -Acute blood loss anemia from GI bleed as mentioned above -Incidental finding of inguinal hernia, can be followed as an outpatient -Abdominal aortic aneurysm
[2018-09-17] MEDS ORDERED: PEG 3350-NA SULF,BICARB,CL/KCL 4,000 ML BOTTLE PO ONE (14:01)
[2018-09-17 18:04] LABS: Basophils % (A) 0 %; Eosinophils % (A) 1 %; HCT 27.5 % (39.0-53.0); Hypochromasia Moderate; Lymphocytes # (A) 1.7 k/uL (1.0-4.8); Lymphocytes % (A) 20 %; MCH 30.1 pg (25.0-35.0); MCHC 31.5 g/dL (31.0-37.0); MCV 95.3 fL (80.0-100.0); Mean Platelet Volume 8.1; Monocytes # (A) 0.5 k/uL (0-1.0); Monocytes % (A) 5 %; Neutrophils # (A) 6.1 k/uL (1.3-7.7); Neutrophils % (A) 71 %; Platelet Count 212 k/uL (150-450); RBC 2.89 m/uL (4.30-5.90); RDW 15.2 % (11.5-15.5); WBC 8.7 k/uL (3.8-10.6)
[2018-09-17 18:24] LABS: HGB 8.7 gm/dL (13.0-17.5)
[2018-09-17 19:25] LABS: HCT 26.8 % (39.0-53.0); HGB 8.5 gm/dL (13.0-17.5); Hypochromasia Moderate; MCH 30.5 pg (25.0-35.0); MCHC 31.8 g/dL (31.0-37.0); Mean Platelet Volume 8.2; Platelet Count 196 k/uL (150-450); RBC 2.79 m/uL (4.30-5.90); RDW 14.8 % (11.5-15.5); WBC 7.8 k/uL (3.8-10.6)
[2018-09-17 21:50] LABS: Glucose,Whole Blood 83 mg/dL (75-99)
[2018-09-18 00:03] LABS: Basophils % (A) 0 %; Eosinophils # (A) 0.1 k/uL (0-0.7); Eosinophils % (A) 1 %; HCT 29.6 % (39.0-53.0); HGB 9.4 gm/dL (13.0-17.5); Hypochromasia Slight; Lymphocytes # (A) 1.7 k/uL (1.0-4.8); Lymphocytes % (A) 19 %; MCH 29.6 pg (25.0-35.0); MCHC 31.8 g/dL (31.0-37.0); Mean Platelet Volume 7.5; Monocytes # (A) 0.5 k/uL (0-1.0); Monocytes % (A) 5 %; Neutrophils # (A) 6.4 k/uL (1.3-7.7); Neutrophils % (A) 71 %; Platelet Count 200 k/uL (150-450); RBC 3.18 m/uL (4.30-5.90); RDW 15.3 % (11.5-15.5); WBC 9.1 k/uL (3.8-10.6)
[2018-09-18] MEDS: PANTOPRAZOLE 40 MG/10 ML VIAL IVP SCH ×2 (00:09→08:38)
[2018-09-18 03:47] LABS: Basophils % (A) 0 %; Eosinophils # (A) 0.1 k/uL (0-0.7); Eosinophils % (A) 1 %; Hypochromasia Slight; Lymphocytes # (A) 1.5 k/uL (1.0-4.8); Lymphocytes % (A) 19 %; MCH 29.8 pg (25.0-35.0); MCV 93.2 fL (80.0-100.0); Mean Platelet Volume 7.6; Monocytes # (A) 0.6 k/uL (0-1.0); Monocytes % (A) 8 %; Neutrophils # (A) 5.6 k/uL (1.3-7.7); Neutrophils % (A) 70 %; Platelet Count 185 k/uL (150-450); RBC 3.01 m/uL (4.30-5.90); RDW 15.4 % (11.5-15.5); WBC 8.1 k/uL (3.8-10.6)
[2018-09-18 04:00] LABS: Anion Gap 7 mmol/L; Blood Urea Nitrogen 19 mg/dL (9-20); Calcium 8.2 mg/dL (8.4-10.2); Carbon Dioxide 24 mmol/L (22-30); Chloride 108 mmol/L (98-107); Glucose 76 mg/dL (74-99); Sodium 139 mmol/L (137-145)
[2018-09-18 07:50] LABS: Basophils % (A) 0 %; Eosinophils # (A) 0.1 k/uL (0-0.7); Eosinophils % (A) 1 %; HCT 27.8 % (39.0-53.0); HGB 9.1 gm/dL (13.0-17.5); Hypochromasia Slight; Lymphocytes # (A) 1.3 k/uL (1.0-4.8); Lymphocytes % (A) 17 %; MCH 30.8 pg (25.0-35.0); MCHC 32.9 g/dL (31.0-37.0); MCV 93.8 fL (80.0-100.0); Mean Platelet Volume 7.1; Monocytes # (A) 0.5 k/uL (0-1.0); Monocytes % (A) 6 %; Neutrophils # (A) 5.6 k/uL (1.3-7.7); Neutrophils % (A) 73 %; Platelet Count 212 k/uL (150-450); RBC 2.97 m/uL (4.30-5.90); RDW 15.7 % (11.5-15.5); WBC 7.7 k/uL (3.8-10.6)
[2018-09-18] MEDS: IPRATROPIUM 0.5 MG/2.5 ML NEBU INHALATION SCH ×4 (07:57→18:51)
[2018-09-18 08:02] LABS: Magnesium 1.7 mg/dL (1.6-2.3); Phosphorus 2.8 mg/dL (2.5-4.5)
[2018-09-18] MEDS: METOPROLOL TARTRATE 25 MG TAB PO SCH (08:39)
[2018-09-18] MEDS ORDERED: ATORVASTATIN 80 MG TAB PO SCH (09:00)
--- NOTE | 2018-09-18 10:43 | P.CNPUL ---
History of Present Illness Consult date: 09/18/18 Requesting physician: Ronaldo Lynn Chief complaint: Acute GI bleeding History of present illness: This is a 62-year-old white male patient of Dr. Arellano, with past medical history of carotid artery disease with recent stenting, COPD, hyperlipidemia, previous myocardial infarction, current every day smoker, presented emergency department on 09/16/2018 for evaluation of rectal bleeding. Started with very dark liquid stools, which progressed to bright red blood per rectum and some clots. He had recent coronary stenting in July, of the distal RCA using a drug-eluting stent, he was placed on the dual antiplatelet therapy with Brillinta and aspirin. Patient had previous GI bleeding a year ago, which was limited, patient did not seek medical care. Denies any EtOH. He is a current smoker, 5 cigarettes a day, used to smoke 2 packs a day, for 52 years. On admission hemoglobin was 8.5, previously patient's hemoglobin in July was 9.2. White blood cell count was 7.8, electrolytes were within normal limits, B1 is 31 and creatinine is 1.20, LFTs were within normal limits, troponin was negative 1, stool for occult blood was positive. he received a unit of packed red blood cells in the emergency department, and this morning's hemoglobin is 9.1. Patient was evaluated by GI service, and he is scheduled for colonoscopy today, last night he started his colonoscopy prep, and there have been increased of bright red stools and the patient was transferred to the intensive care for further monitoring, he had remained hemodynamically stable through the night, this morning he is seen in intensive care unit, awake and alert, no acute distress, denies any shortness of breath or chest pain. CT of abdomen and pelvis showed a large right inguinal hernia with extension of of numerous bowel loops into the pleural sac, no evidence of obstruction, infrarenal abdominal aortic aneurysm into the common iliac vasculature. Review of Systems All systems: negative Constitutional: Denies chills, Denies fever Eyes: denies blurred vision, denies pain Ears, nose, mouth and throat: Denies headache, Denies sore throat Cardiovascular: Denies chest pain, Denies shortness of breath Respiratory: Denies cough Gastrointestinal: Reports change in bowel habits, Reports hematochezia, Denies abdominal pain, Denies diarrhea, Denies nausea, Denies vomiting Musculoskeletal: Denies myalgias Integumentary: Denies pruritus, Denies rash Neurological: Denies numbness, Denies weakness Psychiatric: Denies anxiety, Denies depression Endocrine: Denies fatigue, Denies weight change Past Medical History Past Medical History: Coronary Artery Disease (CAD), COPD, Hyperlipidemia, Myocardial Infarction ([place]) Additional Past Medical History / Comment(s): . Last Myocardial Infarction Date:: 07/2018 History of Any Multi-Drug Resistant Organisms: None Reported Past Surgical History: Heart Catheterization With Stent, Hernia Repair Past Anesthesia/Blood Transfusion Reactions: No Reported Reaction Date of Last Stent Placement:: 07/2018 Past Psychological History: No Psychological Hx Reported Smoking Status: Current every day smoker Past Alcohol Use History: None Reported Past Drug Use History: None Reported - Past Family History Father Family Medical History: Hypertension Medications and Allergies Home Medications Medication Instructions Recorded Confirmed Type Aspirin EC [Ecotrin Low Dose] 81 mg PO BID 09/25/16 09/16/18 History Albuterol Inhaler [Ventolin Hfa 1 - 2 puff INHALATION Q6HR PRN #1 08/09/18 09/16/18 Rx Inhaler] inhaler Lisinopril [Zestril] 2.5 mg PO DAILY #30 tab 08/09/18 09/16/18 Rx Metoprolol Tartrate [Lopressor] 25 mg PO BID #60 tab 08/09/18 09/16/18 Rx Nitroglycerin Sl Tabs [Nitrostat] 0.4 mg SUBLINGUAL Q5M PRN #25 tab 08/09/18 09/16/18 Rx Ticagrelor [Brilinta] 90 mg PO BID #60 tab 08/09/18 09/16/18 Rx Atorvastatin [Lipitor] 80 mg PO DAILY 09/16/18 09/16/18 History Tiotropium [place] [Spiriva] 1 cap INHALATION RT-DAILY 09/16/18 09/16/18 History Allergies Allergy/AdvReac Type Severity Reaction Status Date / Time budesonide [From Symbicort] Allergy Swelling Verified 09/16/18 13:26 formoterol [From Symbicort] Allergy Swelling Verified 09/16/18 13:26 Physical Exam Vitals: Vital Signs Temp Pulse Pulse Resp BP BP Pulse Ox 09/18/18 08:06 70 09/18/18 07:57 68 09/18/18 07:00 73 18 137/71 93 L 09/18/18 06:00 68 14 120/68 92 L 09/18/18 05:00 64 15 126/66 92 L 09/18/18 04:00 98.4 F 67 15 143/70 89 L 09/18/18 03:00 69 6 L 132/70 93 L 09/18/18 02:00 59 L 15 133/70 94 L 09/18/18 01:00 71 17 131/72 95 09/18/18 00:30 66 15 131/72 95 09/18/18 00:00 98.4 F 77 11 L 131/72 96 09/17/18 23:30 98.5 F 73 22 128/98 95 09/17/18 23:00 98.5 F 74 18 128/88 97 09/17/18 22:30 80 22 124/64 96 09/17/18 22:00 98.6 F 62 16 124/64 95 09/17/18 21:34 98.6 F 62 16 136/76 09/17/18 21:04 98.8 F 76 16 132/61 94 L 09/17/18 21:00 98.1 F 76 16 141/65 96 09/17/18 20:54 98.0 F 75 17 148/72 09/17/18 20:38 72 09/17/18 20:28 73 09/17/18 17:58 72 18 137/78 97 09/17/18 17:48 79 18 146/67 97 09/17/18 16:13 72 09/17/18 15:31 18 09/17/18 12:33 98.1 F 71 16 137/65 94 L 09/17/18 12:28 68 09/17/18 12:19 68 Intake and Output 09/17/18 09/18/18 09/18/18 22:59 06:59 14:59 Intake Total 605 1790 300 Output Total 605 450 Balance 605 1185 -150 Intake: IV 75 300 basic 75 300 Intake, IV Titration 75 375 Amount Sodium Chloride 0.9% 1, 75 375 000 ml @ 75 mls/hr IV . [id number] STA Rx#:[id number] Oral 530 720 Blood Product 0 620 Rc Pheresis As-3 Unit 0 310 [id number] Output: Urine 600 450 Stool 5 Other: Voiding Method Toilet Toilet # Voids 3 1 # Bowel Movements 5 1 1 GENERAL EXAM: Alert, active, comfortable in no apparent distress. HEAD: Normocephalic/atraumatic. EYES: Normal reaction of pupils, equal size. Conjunctiva pink, sclera white. NOSE: Clear with pink turbinates. THROAT: No erythema or exudates. NECK: No masses, no JVD, no thyroid enlargement, no adenopathy. CHEST: No chest wall deformity. Symmetrical expansion. LUNGS: Equal air entry with no crackles, wheeze, rhonchi or dullness. CVS: Regular rate and rhythm, normal S1 and S2, no gallops, no murmurs, no rubs ABDOMEN: Soft, nontender. No hepatosplenomegaly, normal bowel sounds, no guarding or rigidity. EXTREMITIES: No clubbing, no edema, no cyanosis, 2+ pulses and upper and lower extremities. MUSCULOSKELETAL: Muscle strength and tone normal. SPINE: No scoliosis or deformity SKIN: No rashes CENTRAL NERVOUS SYSTEM: Alert and oriented -3. No focal deficits, tone is normal in all 4 extremities. PSYCHIATRIC: Alert and oriented -3. Appropriate affect. Intact judgment and insight. Results - Laboratory Findings CBC and BMP: 09/18/18 07:05 09/18/18 03:25 Abnormal lab findings: Abnormal Labs 09/16/18 09/16/18 09/16/18 13:40 13:40 13:40 RBC 3.41 L Hgb 10.5 L Hct 32.5 L RDW APTT 21.6 L Chloride BUN 31 H Glucose 104 H Calcium Total Protein 6.2 L Crossmatch 09/16/18 09/17/18 09/17/18 20:37 17:50 19:10 RBC 2.89 L 2.79 L Hgb 8.7 L D 8.5 L Hct 27.5 L 26.8 L RDW APTT Chloride BUN Glucose Calcium Total Protein Crossmatch See Detail 09/17/18 09/18/18 09/18/18 23:45 03:25 03:25 RBC 3.18 L 3.01 L Hgb 9.4 L 9.0 L Hct 29.6 L 28.0 L RDW APTT Chloride 108 H BUN Glucose Calcium 8.2 L Total Protein Crossmatch 09/18/18 07:05 RBC 2.97 L Hgb 9.1 L Hct 27.8 L RDW 15.7 H APTT Chloride BUN Glucose Calcium Total Protein Crossmatch - Diagnostic Findings Chest x-ray: report reviewed Additional studies: CT scan abdomen and pelvis Assessment and Plan Plan: Assessment: #1. Acute GI bleeding, and patient presented with melena, and hematochezia #2. GI blood loss anemia #3. Recent coronary stenting in July 2018 with placement of drug-eluting stents to the RCA, patient is on Brilinta and aspirin #4. Previous lower GI bleeding a year ago, and the patient did not seek medical care at that time #5. No history of EtOH #6. COPD #7. History of nicotine dependence, 52 years of smoking, 2 packs a day, currently down to 5 cigarettes #8. History of myocardial infarction #9. Hyperlipidemia Plan: Has remained hemodynamically stable, November the shortness of breath or chest pain, he has been as a for colonoscopy today by Dr. Nixon, he completed the prep. He did receive a unit of packed red blood cells in the emergency department, was night, hemoglobin is 9.1, continue with the IV fluids, nebulized bronchodilators, COPD is stable. No acute events overnight, patient will be transferred to general medical floor if the endoscopy results are benign. I performed a history & physical examination of the patient and discussed their management with my nurse practitioner, Ana Meier. I reviewed the nurse practitioner's note and agree with the documented findings and plan of care. Lung sounds are positive for clear breath sounds. The findings and the impression was discussed with the patient. I attest to the documentation by the nurse practitioner. Time with Patient: Greater than 30
--- NOTE | 2018-09-18 14:14 | P.DS ---
Providers Date of admission: 09/17/18 21:38 Attending physician: Ha Armenta MD Consults: 09/17/18 09:24 Consult Physician Routine Consulting Provider: Silva Harrison Consult Reason/Comments: blood in stool, abdominal pain Do you want consulting provider notified?: Yes 09/17/18 19:33 Consult Physician Routine Consulting Provider: Helder Brannon Consult Reason/Comments: icu management Do you want consulting provider notified?: Yes 09/18/18 00:44 Consult Physician Stat Consulting Provider: Helder Brannon Consult Reason/Comments: ICU transfer/ [place] Do you want consulting provider notified?: Yes Primary care physician: [facility] Course: Patient is a pleasant 62-year-old came in with complaints of rectal bleeding patient history is not clearly it appear like patient has mona bright red blood per rectum when questioned about.stools he did say.but it's bright red and mostly blood. Patient is also comparing of epigastric abdominal pain sharp only lasted for few minutes. Patient has recent cardiac catheterization and stent to RCA patient was advised to quit smoking he was trying but the and he used to smoke until he came to ER. Patient is on dual antiplatelet therapy which is temporarily being held. Patient the had multiple bowel movements on Tuesday some yesterday none today. Patient denied any fever chills nausea vomiting patient denied any hematemesis. 09/18/2018 Patient will undergo colonoscopy and upper GI endoscopy today. Patient ideally need to stent her tomorrow to make sure patient is not bleeding on dual antiplatelet therapy but patient wanted to go home. The patient is cleared by gastroenterology will be discharged today. Patient was transferred to ICU last night as the patient the had some dark stools with bowel prep which I do not believe active bleed but from the blood that was retained in the colon from his previous GI bleed. PHYSICAL EXAMINATION: GENERAL: The patient is alert and oriented x3, not in any acute distress. Well d eveloped, well nourished. HEENT: Pupils are round and equally reacting to light. EOMI. No scleral icterus. No conjunctival pallor. Normocephalic, atraumatic. No pharyngeal erythema. No thyromegaly. CARDIOVASCULAR: S1 and S2 present. No murmurs, rubs, or gallops. PULMONARY: Mild expiratory wheezing on exam ABDOMEN: Soft, nontender, nondistended, normoactive bowel sounds. No palpable organomegaly. MUSCULOSKELETAL: No joint swelling or deformity. EXTREMITIES: No cyanosis, clubbing, or pedal edema. NEUROLOGICAL: Gross neurological examination did not reveal any focal deficits. SKIN: No rashes. Assessment and Plan Plan: -GI bleed: Unsure whether patient has upper and lower GI bleed patient will undergo colonoscopy and upper GI endoscopy today. -Acute renal failure: Secondary to GI bleed: Proved now -Coronary artery disease recent cardiac catheterization and stenting, patient will be resumed on antiplatelet therapy as soon as possible -Continued nicotine use: Counseling was provided -Acute blood loss anemia from GI bleed as mentioned above -Incidental finding of inguinal hernia, can be followed as an outpatient -Abdominal aortic aneurysm Patient Condition at Discharge: Good Plan - Discharge Summary Discharge Rx Participant: No New Discharge Prescriptions: New Ranitidine HCl [Zantac] 150 mg PO BID #30 tab Continue Aspirin EC [Ecotrin Low Dose] 81 mg PO BID Metoprolol Tartrate [Lopressor] 25 mg PO BID #60 tab Nitroglycerin Sl Tabs [Nitrostat] 0.4 mg SUBLINGUAL Q5M PRN #25 tab PRN Reason: Chest Pain Ticagrelor [Brilinta] 90 mg PO BID #60 tab Albuterol Inhaler [Ventolin Hfa Inhaler] 1 - 2 puff INHALATION Q6HR PRN #1 inhaler PRN Reason: Shortness Of Breath Or Wheezing Tiotropium [place] [Spiriva] 1 cap INHALATION RT-DAILY Atorvastatin [Lipitor] 80 mg PO DAILY Discontinued Lisinopril [Zestril] 2.5 mg PO DAILY #30 tab Discharge Medication List Aspirin EC [Ecotrin Low Dose] 81 mg PO BID 09/25/16 [History] Albuterol Inhaler [Ventolin Hfa Inhaler] 1 - 2 puff INHALATION Q6HR PRN #1 inhaler 08/09/18 [Rx] Metoprolol Tartrate [Lopressor] 25 mg PO BID #60 tab 08/09/18 [Rx] Nitroglycerin Sl Tabs [Nitrostat] 0.4 mg SUBLINGUAL Q5M PRN #25 tab 08/09/18 [Rx] Ticagrelor [Brilinta] 90 mg PO BID #60 tab 08/09/18 [Rx] Atorvastatin [Lipitor] 80 mg PO DAILY 09/16/18 [History] Tiotropium [place] [Spiriva] 1 cap INHALATION RT-DAILY 09/16/18 [History] Ranitidine HCl [Zantac] 150 mg PO BID #30 tab 09/18/18 [Rx] Follow up Appointment(s)/Referral(s): Tiffani Arellano MD [Primary Care Provider] - 3 Days
[2018-09-18] MEDS ORDERED: IV FLUID CONTINUATION 700 ML IV ONE ×2 (17:16)
[2018-09-18] MEDS ORDERED: PROPOFOL 10 MG/ML 20 ML VIAL IV ONE (17:16)
--- NOTE | 2018-09-18 18:00 | P.PCN ---
Date of Procedure: 09/18/18 Procedure(s) Performed: Procedure: Total colonoscopy. Preoperative diagnosis: Rectal bleeding. Postoperative diagnosis: 1. Diverticulosis with no evidence of acute diverticulitis, strictures, polyps or cancer. 2. No evidence of colitis or bleeding at the time of this exam. Preparation: HalfLytely prep. Sedation: Was provided by anesthesia. Brief clinical history: The patient is a 62-year-old male with past medical history of carotid artery disease with recent stenting, COPD, hyperlipidemia, previous myocardial infarction, current every day smoker, presented emergency department on 09/16/2018 for evaluation of rectal bleeding. Started with very dark liquid stools, which progressed to bright red blood per rectum and some clots. He had recent coronary stenting in July, of the distal RCA using a drug-eluting stent, he was placed on the dual antiplatelet therapy with Brillinta and aspirin. Patient had previous GI bleeding a year ago, which was limited, patient did not seek medical care. Denies any EtOH. He is a current smoker, 5 cigarettes a day, used to smoke 2 packs a day, for 52 years. On admission hemoglobin was 8.5, previously patient's hemoglobin in July was 9.2. White blood cell count was 7.8, electrolytes were within normal limits, B1 is 31 and creatinine is 1.20, LFTs were within normal limits, troponin was negative 1, stool for occult blood was positive. he received a unit of packed red blood cells in the emergency department, and this morning's hemoglobin is 9.1. He had his colonoscopy prep after I saw him yesterday, and there have been increased of bright red stools and the patient was transferred to the intensive care for further monitoring, he had remained hemodynamically stable through the night. CT of abdomen and pelvis showed a large right inguinal hernia with extension of of numerous bowel loops into the hernia sac, no evidence of obst ruction. The patient had no prior colonoscopy. The details are summarized in the history and physical and dictated consultations and progress notes. This evaluation is to assess for a possible source of bleeding in the colon. Procedure: With the patient on his left lateral decubitus position and after informed consent and adequate sedation, the perianal area was inspected and it did not show any fissures or fistulas. There were no masses felt on digital rectal examination. The Olympus CFH 190L video colonoscope was then inserted in the rectum and the usual fashion and advanced to the cecum. There were multiple diverticular orifices scattered along the length of the bowel most obvious on the left side and sigmoid with no evidence of acute diverticulitis or strictures. The mucosa appeared healthy. No polyps or tumors were seen or any angiodysplasias or bleeding. I retroflexed endoscope in the rectum before the endoscope was withdrawn. The patient tolerated the procedure well. Plan: The patient was reassured. Will allow diet as tolerated. This likely that his bleeding was diverticular in origin and it spontaneously subsided. It is unlikely that we are dealing with an upper GI source especially since his movements were bright red including those he had once his preparation was started last night. I would consider an upper endoscopy in the future as outpatient the patient on his course.
[2018-09-18 18:08] VITALS: TEMP 98.2
[2018-09-18] MEDS ORDERED: TICAGRELOR 90 MG TAB PO STA (18:15)
[2018-09-18 19:47] VITALS: BP 140/69; PULSE 78; RESP 22
--- NOTE | 2018-09-18 20:02 | P.CONS ---
History of Present Illness - Reason for Consult Consult date: 09/17/18 Abdominal pain, blood in stools - History of Present Illness The patient is a 62-year-old male with past medical history of carotid artery disease with recent stenting, COPD, hyperlipidemia, previous myocardial infarction, current every day smoker, presented emergency department on 09/16/2018 for evaluation of rectal bleeding. Started with very dark liquid stools, which progressed to bright red blood per rectum and some clots. He had recent coronary stenting in July, of the distal RCA using a drug-eluting stent, he was placed on the dual antiplatelet therapy with Brillinta and aspirin. Patient had previous GI bleeding a year ago, which was limited, patient did not seek medical care. Denies any EtOH. He is a current smoker, 5 cigarettes a day, used to smoke 2 packs a day, for 52 years. On admission hemoglobin was 8.5, previously patient's hemoglobin in July was 9.2. White blood cell count was 7.8, electrolytes were within normal limits, BUN is 31 and creatinine is 1.20, LFTs were within normal limits, troponin was negative 1, stool for occult blood was positive. he received a unit of packed red blood cells in the emergency department, and this morning's hemoglobin is 9.4. CT of abdomen and pelvis showed a large right inguinal hernia with extension of of numerous bowel loops into the hernia sac, no evidence of obstruction. The patient had no prior colonoscopy. Review of Systems Constitutional: Denied fever, chills or unintentional weight loss Neurologic: No headaches, double vision or other sensory or motor changes Cardiopulmonary: No chest pains, shortness of breath or palpitations Gastrointestinal: See present illness above Genitourinary: No hematuria, dysuria or frequency Endocrine: No history of diabetes or thyroid disease Hematologic: No history of anemia or bleeding tendency Musculoskeletal: No joint pains or swelling Skin: No rashes Psychiatric: No anxiety or depression Past Medical History Past Medical History: Coronary Artery Disease (CAD), COPD, Hyperlipidemia, Myocardial Infarction ([place]) Additional Past Medical History / Comment(s): . Last Myocardial Infarction Date:: 07/2018 History of Any Multi-Drug Resistant Organisms: None Reported Past Surgical History: Heart Catheterization With Stent, Hernia Repair Past Anesthesia/Blood Transfusion Reactions: No Reported Reaction Date of Last Stent Placement:: 07/2018 Past Psychological History: No Psychological Hx Reported Smoking Status: Current every day smoker Past Alcohol Use History: None Reported Past Drug Use History: None Reported - Past Family History Father Family Medical History: Hypertension Medications and Allergies Home Medications Medication Instructions Recorded Confirmed Type Aspirin EC [Ecotrin Low Dose] 81 mg PO BID 09/25/16 09/16/18 History Albuterol Inhaler [Ventolin Hfa 1 - 2 puff INHALATION Q6HR PRN #1 08/09/18 09/16/18 Rx Inhaler] inhaler Metoprolol Tartrate [Lopressor] 25 mg PO BID #60 tab 08/09/18 09/16/18 Rx Nitroglycerin Sl Tabs [Nitrostat] 0.4 mg SUBLINGUAL Q5M PRN #25 tab 08/09/18 09/16/18 Rx Ticagrelor [Brilinta] 90 mg PO BID #60 tab 08/09/18 09/16/18 Rx Atorvastatin [Lipitor] 80 mg PO DAILY 09/16/18 09/16/18 History Tiotropium [place] [Spiriva] 1 cap INHALATION RT-DAILY 09/16/18 09/16/18 History Budesonide-Formot 160-4.5 Mcg 2 puff INHALATION BID #1 inhaler 09/18/18 Rx [Symbicort 160-4.5 Mcg Inhaler] Ranitidine HCl [Zantac] 150 mg PO BID #30 tab 09/18/18 Rx Allergies Allergy/AdvReac Type Severity Reaction Status Date / Time budesonide [From Symbicort] Allergy Swelling Verified 09/16/18 13:26 formoterol [From Symbicort] Allergy Swelling Verified 09/16/18 13:26 Physical Exam Vitals: Vital Signs Temp Pulse Pulse Resp BP BP Pulse Ox 09/17/18 08:00 18 09/17/18 05:01 98.3 F 66 18 107/55 94 L 09/17/18 00:00 18 09/16/18 21:50 97.9 F 69 18 121/60 97 09/16/18 18:25 97.9 F 09/16/18 18:00 72 12 112/56 97 09/16/18 17:00 67 12 117/65 98 09/16/18 16:00 65 11 L 108/49 98 09/16/18 15:00 62 13 108/49 98 09/16/18 14:00 61 13 108/49 97 09/16/18 13:50 60 12 98 09/16/18 13:00 97.8 F 72 18 105/63 97 Intake and Output 09/16/18 09/17/18 09/17/18 21:59 06:59 14:59 Intake Total Balance Intake: Oral Other: # Voids 2 # Bowel Movements General: Appeared stated age, very pleasant in no acute distress Head and neck: Normocephalic and atraumatic, conjunctivae pink and sclerae not icteric, mucous membranes moist and pink. No masses in the neck or tracheal shifts Lungs: Clear to auscultation with no dullness to percussion Heart: Regular, no abnormal sounds, murmurs, gallops or friction rubs ABDOMEN: Soft no masses, organomegalies or tenderness. Bowel sounds present. Large right inguinal hernia Extremities: No clubbing, cyanosis or edema Neurologic: Alert and oriented 3. Cranial nerves grossly intact. No gross sensory or motor other abnormalities Results CBC & Chem 7: 09/18/18 07:05 09/18/18 03:25 Labs: Abnormal Lab Results - Last 24 Hours (Table) 09/16/18 09/16/18 09/16/18 Range/Units 13:40 13:40 13:40 RBC 3.41 L (4.30-5.90) m/uL Hgb 10.5 L (13.0-17.5) gm/dL Hct 32.5 L (39.0-53.0) % APTT 21.6 L (22.0-30.0) sec BUN 31 H (9-20) mg/dL Glucose 104 H (74-99) mg/dL Total Protein 6.2 L (6.3-8.2) g/dL Assessment and Plan Assessment: Gastrointestinal bleeding likely lower GI in nature. Diverticular disease is the likely etiology although ischemic colitis would have to be considered especially with the large right inguinal hernia and the twisting of the bowel on CT. Plan: We will proceed with colonoscopy tomorrow. Further plans will be made based on his course.
== END 2018-09-19 06:40 | disposition home or self-care (01) | DRG 378 ==
LOC: EC 12:57 → 3NMEDONC 17:32 → INTOOBSV 17:32 → 2SICU 09-17 21:37 → OBSVTOIN 09-17 21:38
PROVIDERS: ADMIT Internal Medicine; ATTEND Internal Medicine
PROC: 30233N1 Transfusion of Nonautologous Red Blood Cells into Peripheral Vein, Percutaneous Approach (ICD-10-PCS; 2018-09-17)
PROC: 0DJD8ZZ Inspection of Lower Intestinal Tract, Via Natural or Artificial Opening Endoscopic (ICD-10-PCS; principal; 2018-09-18 10:30)
DX: K57.31 Diverticulosis of large intestine without perforation or abscess with bleeding (principal); N17.9 Acute kidney failure, unspecified; K55.9 Vascular disorder of intestine, unspecified; D62 Acute posthemorrhagic anemia; J44.9 Chronic obstructive pulmonary disease, unspecified; I25.2 Old myocardial infarction; E78.5 Hyperlipidemia, unspecified; F17.210 Nicotine dependence, cigarettes, uncomplicated; I25.10 Atherosclerotic heart disease of native coronary artery without angina pectoris; D50.0 Iron deficiency anemia secondary to blood loss (chronic); K40.90 Unilateral inguinal hernia, without obstruction or gangrene, not specified as recurrent; I71.4 Abdominal aortic aneurysm, without rupture; Z79.51 Long term (current) use of inhaled steroids; Z79.82 Long term (current) use of aspirin; Z79.899 Other long term (current) drug therapy; Z79.02 Long term (current) use of antithrombotics/antiplatelets; Z95.5 Presence of coronary angioplasty implant and graft; Z82.49 Family history of ischemic heart disease and other diseases of the circulatory system
CPT/HCPCS: 36415; 45378; 74177; 80048; 80053; 82272; 83605; 83690; 83735; 84100; 84484; 85025; 85027; 85730; 86850; 86900; 86901; 86920; 93005; 94640; 99285

== ENCOUNTER → 2020-05-13 | Outpatient (CLI) | payer OTHER ==
--- NOTE | 2020-05-13 21:13 | CT ---
EXAMINATION TYPE: CT angio abdomen pelvis DATE OF EXAM: 05/13/2020 COMPARISON: CT abdomen pelvis 09/16/2018 HISTORY: Abdominal aortic aneurysm. CT DLP: 1913 mGycm Automated exposure control for dose reduction was used. TECHNIQUE: CT angiography was performed from the lung bases through the pelvis, with abdominal aorti c aneurysm protocol before and after demonstration of IV contrast. Three-dimensional and MIP images w ere generated and utilized on a separate workstation. CONTRAST: Performed without Oral Contrast and without and with IV Contrast, patient injected with 100ml mL of I sovue 370. FINDINGS: VASCULAR: Precontrast imaging demonstrates no evidence of intramural hematoma. There is a redemonstrated infrar enal abdominal aortic aneurysm measuring up to 3.7 x 3.8 cm AP and transverse, not significantly gotti ged versus 09/16/2018 comparison. Right common iliac artery aneurysm measures up to 2.5 cm, unchanged. The left common iliac artery aneurysm measures up to 2.7 cm, which is mildly increased versus 9 when it measured up to 2.5 cm. Calcified and noncalcified atherosclerotic disease. The celiac artery, superior mesenteric artery, and inferior mesenteric artery are patent. The single left and double right renal arteries are patent. Numerous redemonstrated abdominal varices within the subcutaneous tissues of the lower abdomen. NONVASCULAR: LUNG BASES: Normal. LIVER: Normal. BILIARY SYSTEM: Normal. PANCREAS: Normal. SPLEEN: Normal. ADRENALS: Normal. KIDNEYS: No hydronephrosis or urolithiasis. Bilateral peripelvic cysts. BOWEL: There is an incompletely visualized redemonstrated very large right inguinal hernia containin g numerous loops of small bowel and colon. The visualized bowel loops demonstrate no evidence of obst ruction or thickening. PERITONEUM: No pneumoperitoneum. No free fluid. The bowel containing large right inguinal hernia sac measures at least 18.4 x 14.6 cm, with 4.3 cm fascial defect. LYMPH NODES: No lymphadenopathy. PELVIS: Normal urinary bladder. Prostatic calcification. MUSCULOSKELETAL: Degenerative changes of the spine. IMPRESSION: 1. Infrarenal abdominal aortic aneurysm measuring up to 3.7 x 3.8 cm AP and transverse is not signif icantly changed versus 09/16/2018 comparison. 2. Left common iliac artery aneurysm measures 2.7 cm, mildly increased from 2019 comparison when it measured 2.5 cm. Right common iliac artery aneurysm measures 2.5 cm and is unchanged. 3. Redemonstrated incompletely visualized very large right inguinal hernia containing numerous loops of small bowel and colon. The visualized bowel is nonobstructed.
== END | disposition home or self-care (01) ==
LOC: RADCTMAIN 14:07
PROVIDERS: ATTEND Internal Medicine Interventional Cardiology
DX: I71.4 Abdominal aortic aneurysm, without rupture (principal); I72.3 Aneurysm of iliac artery; K40.90 Unilateral inguinal hernia, without obstruction or gangrene, not specified as recurrent
CPT/HCPCS: 74174; Q9967

== ENCOUNTER 2020-07-11 11:07 | Inpatient (IN) | payer OTHER ==
--- NOTE | 2020-07-11 11:19 | ED ---
GI Bleed HPI - General Source: patient, EMS, RN notes reviewed Mode of arrival: EMS Limitations: no limitations <Albert Santana - Last Filed: 07/11/20 12:14> <Alexandra Arreguin - Last Filed: 07/12/20 12:23> - General Stated complaint: GI bleed Time Seen by Provider: 07/11/20 11:09 - History of Present Illness Initial comments: This is a 64-year-old male presents emergency Department with chief complaint of rectal bleeding. Patient states that he fell again have a bowel movement yesterday states that it was small amount blood which hasn't worsened throughout the night. Patient states he feels he has to pass gas and is just blood. He s tates he takes a low-dose aspirin he denies any other medications he did state this happened approximately 2 years ago. He has mild abdominal cramping. Patient denies any fevers or chills chest pain shortness of breath he feels generalized weak. Patient has no dysuria he does note that he hasn't large hernia that extends onto his scrotum states he has not seen a surgeon he states is not bothersome not painful at this time. (Albert Santana) - Related Data Home Medications Medication Instructions Recorded Confirmed Aspirin EC [Ecotrin Low Dose] 81 mg PO DAILY 09/25/16 07/11/20 Atorvastatin [Lipitor] 80 mg PO HS 09/16/18 07/11/20 lisinopriL [Zestril] 5 mg PO DAILY 07/11/20 07/11/20 Previous Rx's Medication Instructions Recorded Metoprolol Tartrate [Lopressor] 25 mg PO BID #60 tab 08/09/18 Nitroglycerin Sl Tabs [Nitrostat] 0.4 mg SUBLINGUAL Q5M PRN #25 tab 08/09/18 Allergies Allergy/AdvReac Type Severity Reaction Status Date / Time budesonide [From Symbicort] Allergy Swelling Verified 07/11/20 12:00 formoterol [From Symbicort] Allergy Swelling Verified 07/11/20 12:00 Review of Systems ROS Other: All systems not noted in ROS Statement are negative. <Albert Santana - Last Filed: 07/11/20 12:14> ROS Other: All systems not noted in ROS Statement are negative. <Alexandra Arreguin - Last Filed: 07/12/20 12:23> ROS Statement: Those systems with pertinent positive or pertinent negative responses have been documented in the HPI. Past Medical History Past Medical History: Coronary Artery Disease (CAD), COPD, Hyperlipidemia, Myocardial Infarction ([place]) Additional Past Medical History / Comment(s): . Last Myocardial Infarction Date:: 07/2018 History of Any Multi-Drug Resistant Organisms: None Reported Past Surgical History: Heart Catheterization With Stent, Hernia Repair Past Anesthesia/Blood Transfusion Reactions: No Reported Reaction Date of Last Stent Placement:: 07/2018 Past Psychological History: No Psychological Hx Reported Past Alcohol Use History: None Reported Past Drug Use History: None Reported - Past Family History Father Family Medical History: Hypertension <Albert Santana - Last Filed: 07/11/20 12:14> General Exam General appearance: alert, in no apparent distress Head exam: Present: atraumatic, normocephalic, normal inspection ENT exam: Present: normal exam, normal oropharynx, mucous membranes moist Neck exam: Present: normal inspection, full ROM. Absent: tenderness, meningismus, lymphadenopathy Respiratory exam: Present: normal lung sounds bilaterally. Absent: respiratory distress, wheezes, rales, rhonchi, stridor Cardiovascular Exam: Present: regular rate, normal rhythm, normal heart sounds. Absent: systolic murmur, diastolic murmur, rubs, gallop, clicks GI/Abdominal exam: Present: soft, tenderness (Mild lower), normal bowel sounds, hernia (Very large right inguinal hernia extends into the scrotum). Absent: distended, guarding, rebound, rigid Rectal exam: Present: bloody stool, other (There is dry blood noted around the rectum there is no active bleeding) <Albert Santana - Last Filed: 07/11/20 12:14> Course Vital Signs 07/11/20 07/11/20 07/11/20 11:15 11:45 12:30 Temperature 98.0 F Pulse Rate 77 78 70 Respiratory 20 20 18 Rate Blood Pressure 96/58 122/66 119/72 O2 Sat by Pulse 97 99 99 Oximetry 07/11/20 07/11/20 07/11/20 13:00 14:00 14:30 Temperature 98.1 F 96.6 F L 97.9 F Pulse Rate 66 81 77 Respiratory 20 28 H 18 Rate Blood Pressure 133/66 76/52 80/56 O2 Sat by Pulse 99 100 99 Oximetry Medical Decision Making - Lab Data Result diagrams: 07/11/20 11:43 07/11/20 11:43 - EKG Data -: EKG Interpreted by Me <Albert Santana - Last Filed: 07/11/20 12:14> - Lab Data Result diagrams: 07/12/20 04:39 07/12/20 04:39 <Alexandra Arreguin - Last Filed: 07/12/20 12:23> - Medical Decision Making 63-year-old presented for GI bleed. Patient noted blood around his rectum. Patient's hemoglobin is stable, given patient's past medical history, current bleeding. Patient will be admitted for repeat H&H, GI consult and further monitoring. (Albert Santana) I was available for consultation in the emergency department. The history and physical exam were done by the midlevel provider. I was consulted for this patients care. I reviewed the case with the midlevel provider and based on their presentation of the patient, I agree with the assessment, medical decision making and plan of care as documented. Discussed patients care with Dr. Plaza and Dr. Powell. Patient will be admitted to ICU. Chart was dictated using [employer] dictation software. Attempts were made to correct any dictation errors however some typographical errors may persist. Patient was seen during a national state of emergency due to the Covid-19 pandemic. (Alexandra Arreguin) - Lab Data Lab Results 07/11/20 07/11/20 07/11/20 Range/Units 11:43 11:43 11:43 WBC 16.8 H (3.8-10.6) k/uL RBC 4.33 (4.30-5.90) m/uL Hgb 13.9 (13.0-17.5) gm/dL Hct 42.9 (39.0-53.0) % MCV 99.0 (80.0-100.0) fL MCH 32.1 (25.0-35.0) pg MCHC 32.4 (31.0-37.0) g/dL RDW 14.3 (11.5-15.5) % Plt Count 185 (150-450) k/uL MPV 7.6 Neutrophils % 88 % Lymphocytes % 7 % Monocytes % 4 % Eosinophils % 0 % Basophils % 1 % Neutrophils # 14.7 H (1.3-7.7) k/uL Lymphocytes # 1.1 (1.0-4.8) k/uL Monocytes # 0.6 (0-1.0) k/uL Eosinophils # 0.0 (0-0.7) k/uL Basophils # 0.1 (0-0.2) k/uL PT 10.3 (9.0-12.0) sec INR 1.0 (<1.2) APTT 21.1 L (22.0-30.0) sec Sodium 139 (137-145) mmol/L Potassium 4.9 (3.5-5.1) mmol/L Chloride 107 (98-107) mmol/L Carbon Dioxide 27 (22-30) mmol/L Anion Gap 5 mmol/L BUN 20 (9-20) mg/dL Creatinine 1.09 (0.66-1.25) mg/dL Est GFR (CKD-EPI)AfAm 83 (>60 ml/min/1.73 sqM) Est GFR (CKD-EPI)NonAf 72 (>60 ml/min/1.73 sqM) Glucose 115 H (74-99) mg/dL Plasma Lactic Acid Mayur (0.7-2.0) mmol/L Calcium 8.8 (8.4-10.2) mg/dL Total Bilirubin 0.7 (0.2-1.3) mg/dL AST 27 (17-59) U/L ALT 21 (4-49) U/L Alkaline Phosphatase 79 (38-126) U/L Creatine Kinase 58 (55-170) U/L Troponin I (0.000-0.034) ng/mL Total Protein 6.1 L (6.3-8.2) g/dL Albumin 3.4 L (3.5-5.0) g/dL Lipase 166 (23-300) U/L Blood Type Blood Type Recheck Bld Type Recheck Status Antibody Screen Crossmatch Spec Expiration Date 07/11/20 07/11/20 07/11/20 Range/Units 11:43 11:43 11:43 WBC (3.8-10.6) k/uL RBC (4.30-5.90) m/uL Hgb (13.0-17.5) gm/dL Hct (39.0-53.0) % MCV (80.0-100.0) fL MCH (25.0-35.0) pg MCHC (31.0-37.0) g/dL RDW (11.5-15.5) % Plt Count (150-450) k/uL MPV Neutrophils % % Lymphocytes % % Monocytes % % Eosinophils % % Basophils % % Neutrophils # (1.3-7.7) k/uL Lymphocytes # (1.0-4.8) k/uL Monocytes # (0-1.0) k/uL Eosinophils # (0-0.7) k/uL Basophils # (0-0.2) k/uL PT (9.0-12.0) sec INR (<1.2) APTT (22.0-30.0) sec Sodium (137-145) mmol/L Potassium (3.5-5.1) mmol/L Chloride (98-107) mmol/L Carbon Dioxide (22-30) mmol/L Anion Gap mmol/L BUN (9-20) mg/dL Creatinine (0.66-1.25) mg/dL Est GFR (CKD-EPI)AfAm (>60 ml/min/1.73 sqM) Est GFR (CKD-EPI)NonAf (>60 ml/min/1.73 sqM) Glucose (74-99) mg/dL Plasma Lactic Acid Mayur 2.8 H* (0.7-2.0) mmol/L Calcium (8.4-10.2) mg/dL Total Bilirubin (0.2-1.3) mg/dL AST (17-59) U/L ALT (4-49) U/L Alkaline Phosphatase (38-126) U/L Creatine Kinase (55-170) U/L Troponin I <0.012 (0.000-0.034) ng/mL Total Protein (6.3-8.2) g/dL Albumin (3.5-5.0) g/dL Lipase (23-300) U/L Blood Type B Negative Blood Type Recheck B Neg Bld Type Recheck Status No Antibody Screen NEGATIVE Crossmatch See Detail Spec Expiration Date 07/14/2020 - 6172 - EKG Data EKG Comments: EKG performed at 11:16 sinus rhythm with rate of 78 WI 128 QRS 74 QT/ QTC 374/426 (Albert Santana) Disposition <Albert Santana - Last Filed: 07/11/20 12:14> <Alexandra Arreguin - Last Filed: 07/12/20 12:23> Clinical Impression: GI bleed Disposition: ADMITTED IP TO THIS HOSP Condition: Fair
[2020-07-11 11:53] LABS: Basophils # (A) 0.1 k/uL (0-0.2); Basophils % (A) 1 %; Eosinophils % (A) 0 %; HCT 42.9 % (39.0-53.0); HGB 13.9 gm/dL (13.0-17.5); Lymphocytes # (A) 1.1 k/uL (1.0-4.8); Lymphocytes % (A) 7 %; MCH 32.1 pg (25.0-35.0); MCHC 32.4 g/dL (31.0-37.0); Mean Platelet Volume 7.6; Monocytes # (A) 0.6 k/uL (0-1.0); Monocytes % (A) 4 %; Neutrophils # (A) 14.7 k/uL (1.3-7.7); Neutrophils % (A) 88 %; Platelet Count 185 k/uL (150-450); RBC 4.33 m/uL (4.30-5.90); RDW 14.3 % (11.5-15.5); WBC 16.8 k/uL (3.8-10.6)
[2020-07-11 12:06] LABS: Albumin 3.4 g/dL (3.5-5.0); Calcium 8.8 mg/dL (8.4-10.2); Potassium 4.9 mmol/L (3.5-5.1); Total Bilirubin 0.7 mg/dL (0.2-1.3); Total Protein 6.1 g/dL (6.3-8.2)
[2020-07-11 12:08] LABS: Prothrombin Time 10.3 sec (9.0-12.0)
[2020-07-11] MEDS ORDERED: ACETAMINOPHEN TAB 325 MG TAB PO PRN (12:19)
[2020-07-11] MEDS ORDERED: NALOXONE 0.4 MG/ML 1 ML VIAL IV PRN (12:19)
[2020-07-11] MEDS ORDERED: MORPHINE SULFATE 4 MG/ML SYRINGE IV PRN (12:19)
[2020-07-11] MEDS ORDERED: ONDANSETRON 4 MG/2 ML VIAL IVP PRN (12:19)
[2020-07-11] MEDS ORDERED: HYDROcodone/APAP 5-325MG 1 EACH TAB PO PRN (12:19)
[2020-07-11 12:22] LABS: Partial Thromboplastin Time 21.1 sec (22.0-30.0)
[2020-07-11] MEDS: PANTOPRAZOLE 40 MG/10 ML VIAL IV SCH (12:52)
[2020-07-11] MEDS ORDERED: ALPRAZolam 0.25 MG TAB PO PRN (14:29)
[2020-07-11] MEDS ORDERED: TEMAZEPAM 15 MG CAP PO PRN (14:29)
[2020-07-11 14:47] LABS: Glucose,Whole Blood 78 mg/dL (75-99)
--- NOTE | 2020-07-11 15:03 | XR ---
EXAMINATION TYPE: XR chest 1V portable DATE OF EXAM: 07/11/2020 COMPARISON: 08/05/2018 INDICATION: CHF, rectal bleeding COPD TECHNIQUE: Single frontal view of the chest is obtained. FINDINGS: The heart size is normal. The pulmonary vasculature is normal. The lungs are clear. IMPRESSION: 1. No acute pulmonary process.
[2020-07-11 15:21] LABS: HCT 42.1 % (39.0-53.0); HGB 13.2 gm/dL (13.0-17.5); Hypochromasia Marked; MCH 32.5 pg (25.0-35.0); MCHC 31.5 g/dL (31.0-37.0); MCV 103.3 fL (80.0-100.0); Macrocytosis Slight; Platelet Count 169 k/uL (150-450); RBC 4.07 m/uL (4.30-5.90); WBC 14.8 k/uL (3.8-10.6)
[2020-07-11 15:32] LABS: Lymphocytes # (M) 1.78 k/uL (1.0-4.8); Monocytes # (M) 0.44 k/uL (0-1.0); Neutrophils # (M) 12.58 k/uL (1.3-7.7); Neutrophils % (M) 85 %; Nucleated Red Blood Cells 0 /100 WBC (0-0); Total Cells Counted 100
--- NOTE | 2020-07-11 16:12 | HP ---
HISTORY AND PHYSICAL DATE OF SERVICE: 07/11/2020. CHIEF COMPLAINT: GI bleed. HISTORY OF PRESENT ILLNESS: This 64-year-old gentleman with a past medical history of CAD, COPD, hyperlipidemia, history of myocardial infarction, history of CAD/stent being followed by Dr. Arellano in the outpatient setting, apparently had previous colonoscopy. The patient had a previous GI bleed and the colonoscopy showed diverticulosis with no evidence of acute diverticulitis at that time and currently the patient is complaining of bleeding since yesterday. There is no abdominal pain, but this morning the bleeding was massive according to the and the patient came to [facility] and was admitted for evaluation and treatment. There is no history of any fever, rigors, no history of headache, loss of consciousness at this time. Initial hemoglobin was found to be 13.9. The blood pressure is normal, but currently the blood pressure is 70s/52, and the patient is also tachycardic. Two units blood transfusion has been arranged. Gastroenterology evaluation has been sought and the patient being transferred to ICU at this time. There is no history of fever, rigors, chills at this time. PAST MEDICAL HISTORY: History of CAD, COPD, hyperlipidemia, myocardial infarction, CAD stent, hernia repair. MEDICATIONS: Zestril 5 mg p.o. daily, Nitrostat, Lopressor, Lipitor, Ecotrin. ALLERGIES: SYMBICORT. FAMILY HISTORY: History of hypertension in the family. SOCIAL HISTORY: History of smoking continued ongoing. REVIEW OF SYSTEMS: ENT: No diminished vision. No diminished hearing. Cardiovascular system: As mentioned earlier. RESPIRATORY: As mentioned earlier. GI mentioned earlier. : No dysuria or hematuria. NERVOUS SYSTEM: No numbness or weakness. ALLERGY/IMMUNOLOGY: No asthma or hayfever. MUSCULOSKELETAL as mentioned earlier. HEMATOLOGY/ONCOLOGY: No history of anemia. ENDOCRINE: No history of diabetes, hypothyroidism. CONSTITUTIONAL: As mentioned earlier. DERMATOLOGY: Negative. RHEUMATOLOGY: Negative. PSYCHIATRIC: As mentioned earlier. PHYSICAL EXAMINATION: Alert, oriented times three. Pulse is 140, blood pressure 76/52, respirations 30. Temperature 98.6, pulse ox 100 percent on 2 L. HEENT: Conjunctivae normal. NECK: No JVD. CARDIOVASCULAR: S1, S2 muffled. RESPIRATORY SYSTEM: Breath sounds diminished at the bases. Scattered rhonchi and crackles. ABDOMEN: Soft, obese, nontender. No mass palpable. Legs no edema. No swelling. Nervous system: Higher functions as mentioned earlier. Moves all 4 limbs. No focal motor or sensory deficits. Lymphatics: No lymph nodes palpable in the neck, axilla or groin. Skin: No ulcer. No rash and no bleeding. Joints no active arthropathy. LABS: WBC 16.2, hemoglobin 13.9. Plasma lactic acid 2.8. Other labs are noted. ASSESSMENT: 1. Acute lower gastrointestinal bleeding with acute blood loss anemia with hypotension secondary to hypovolemic shock possibly secondary to diverticular bleed. 2. History of previous gastrointestinal bleed. 3. Increased WBC. 4. Elevated lactic acid secondary to dehydration. 5. Increased random blood sugar. 6. History of coronary artery disease/stent. 7. Chronic obstructive pulmonary disease. 8. Hyperlipidemia. 9. History of myocardial infarction. 10.History of hernia repair. 11.Continued ongoing nicotine dependence. 12.Obesity with body mass index 35.8. 13.FULL CODE. RECOMMENDATIONS AND DISCUSSION: In this 64-year-old gentleman who presented with multiple complex medical issues, we will monitor the patient closely. Continue the current medications. I recommend a unit transfusion and check H and H q.6h. Gastroenterology consultation. Possible endoscopes. Monitor closely. IV fluids cautiously. Portable chest x-ray. Cardiology evaluation. Hold antiplatelet agents for now. Prognosis extremely guarded because of multiple complex medical issues. Further recommendations to follow. A copy of dictation being forwarded to Dr. Arellano who is the primary physician. Initial troponins are negative. Initial EKG also showed no acute changes. Occasional PVCs were noted. We will check lytes as well. MMODL / IJN: [id number] /
--- NOTE | 2020-07-11 20:52 | P.CONS ---
History of Present Illness - Reason for Consult Consult date: 07/11/20 blood per rectum Requesting physician: Teodoro Plaza - Chief Complaint rectal bleed - History of Present Illness 64-year-old male with a medical history significant for coronary artery disease, COPD, hyperlipidemia, prior PR and prior hospitalization for GI bleed who presen ts to the hospital with complaints of blood per rectum. The patient reports that initially he passed only a small amounts of blood. Subsequently the patient however reports developing a large amount of blood per rectum noted in the toilet. He reports feeling gas and distention but denies any abdominal pain at this time. He does report a small amount cramping. Previously the patient was hospitalized for similar complaints in 2019 and underwent a colonoscopy for evaluation in 09/18/2018 significant for diverticulosis. On presentation to the hospital patient had laboratory evaluation significant for WBC 16.8, hemoglobin 13.9, platelet count 285,000, total bilirubin 0.7, alkaline phosphatase 79, AST 27 and ALT 21. No further episodes of bleeding since presentation to the hospital. Review of Systems REVIEW OF SYSTEMS: CONSTITUTIONAL: Denies any fevers, chills, weight change or fatigue. CARDIOVASCULAR: Denies any chest pain, palpitations high or low blood pressures RESPIRATORY: Denies any shortness of breath, hemoptysis or cough. GENITOURINARY: No dysuria or hematuria. MUSCULOSKELETAL: No weakness reported. SKIN: Denies any new rashes or lesions, jaundice or pallor. PSYCHIATRIC: Denies any depression or anxiety. NEUROLOGY: Denies headache, denies any new focal deficits. EARS/NOSE/THROAT: No recent hearing change, congestion, nasal discharge or sore throat. EYES: No pain in eyes, discharge or change in vision. GASTROINTESTINAL: As per HPI. Past Medical History Past Medical History: Coronary Artery Disease (CAD), COPD, Hyperlipidemia, Myocardial Infarction (PR) Additional Past Medical History / Comment(s): . Last Myocardial Infarction Date:: 07/2018 History of Any Multi-Drug Resistant Organisms: None Reported Past Surgical History: Heart Catheterization With Stent, Hernia Repair Past Anesthesia/Blood Transfusion Reactions: No Reported Reaction Date of Last Stent Placement:: 07/2018 Past Psychological History: No Psychological Hx Reported Past Alcohol Use History: None Reported Past Drug Use History: None Reported - Past Family History Father Family Medical History: Hypertension Medications and Allergies Home Medications Medication Instructions Recorded Confirmed Type Aspirin EC [Ecotrin Low Dose] 81 mg PO DAILY 09/25/16 07/11/20 History Metoprolol Tartrate [Lopressor] 25 mg PO BID #60 tab 08/09/18 07/11/20 Rx Nitroglycerin Sl Tabs [Nitrostat] 0.4 mg SUBLINGUAL Q5M PRN #25 tab 08/09/18 07/11/20 Rx Atorvastatin [Lipitor] 80 mg PO HS 09/16/18 07/11/20 History lisinopriL [Zestril] 5 mg PO DAILY 07/11/20 07/11/20 History Allergies Allergy/AdvReac Type Severity Reaction Status Date / Time budesonide [From Symbicort] Allergy Swelling Verified 07/11/20 12:00 formoterol [From Symbicort] Allergy Swelling Verified 07/11/20 12:00 Physical Exam Vitals: Vital Signs Temp Pulse Resp BP Pulse Ox 07/11/20 14:30 97.9 F 77 18 80/56 99 07/11/20 14:00 96.6 F L 81 28 H 76/52 100 07/11/20 13:00 98.1 F 66 20 133/66 99 07/11/20 12:30 70 18 119/72 99 07/11/20 11:45 78 20 122/66 99 07/11/20 11:15 98.0 F 77 20 96/58 97 Intake and Output 07/10/20 07/11/20 07/11/20 22:59 06:59 14:59 Other: Weight 103.555 kg On physical examination, patient appears comfortable in no apparent distress. HEAD: Normocephalic, atraumatic. EYES: No scleral icterus. No conjunctival injection. MOUTH: No lesions, tongue midline. NECK: Trachea midline, no gross abnormalities. CHEST: Clear to auscultation with no wheezing or rhonchi appreciated. HEART: Regular rate and rhythm. ABDOMEN: Soft, obeseand nontender to palpation. Bowel sounds are positive. No or ganomegaly. No guarding or rigidity. EXTREMITIES: No pedal edema. SKIN: No rashes, no jaundice. NEUROLOGIC: Alert and oriented x3. No focal deficits. Results CBC & Chem 7: 07/11/20 15:06 07/11/20 11:43 Labs: Abnormal Lab Results - Last 24 Hours (Table) 07/11/20 07/11/20 07/11/20 Range/Units 11:43 11:43 11:43 WBC 16.8 H (3.8-10.6) k/uL Neutrophils # 14.7 H (1.3-7.7) k/uL APTT 21.1 L (22.0-30.0) sec Glucose 115 H (74-99) mg/dL Plasma Lactic Acid Mayur (0.7-2.0) mmol/L Total Protein 6.1 L (6.3-8.2) g/dL Albumin 3.4 L (3.5-5.0) g/dL Crossmatch 07/11/20 07/11/20 Range/Units 11:43 11:43 WBC (3.8-10.6) k/uL Neutrophils # (1.3-7.7) k/uL APTT (22.0-30.0) sec Glucose (74-99) mg/dL Plasma Lactic Acid Mayur 2.8 H* (0.7-2.0) mmol/L Total Protein (6.3-8.2) g/dL Albumin (3.5-5.0) g/dL Crossmatch See Detail Chest x-ray: report reviewed Assessment and Plan (1) GI bleed Narrative/Plan: 64-year-old male with multiple medical comorbidities presenting to the hospital for painless for blood per rectum. Patient reports initially seeing only a small amount of blood but then had a large bloody bowel movement. No further episodes since admission. Hemoglobin on presentation was stable at 13.9. Her colonoscopy in September 2018 for evaluation of similar symptoms of blood per rectum were significant for diverticulosis. Unclear etiology, suspicion is for recurrent diverticular bleed, differential also includes AVM, stercoral ulcer, or other etiology. Current Visit: Yes Status: Acute Code(s): K92.2 - GASTROINTESTINAL HEMORRHAGE, UNSPECIFIED SNOMED Code(s): 73261725 (2) Diverticulosis Current Visit: Yes Status: Acute Code(s): K57.90 - DVRTCLOS OF INTEST, PART UNSP, W/O PERF OR ABSCESS W/O BLEED SNOMED Code(s): 238330440 Plan: supportive care Nothing by mouth except for ice chips IV fluid ordered 150 mL of normal saline per hour Continue monitor for signs or symptoms of GI bleeding Continue to monitor hemoglobin and hematocrit and transfuse as needed No plan for endoscopic evaluation at this time Thank you for allowing us to participate in the care of the patient we will continue to follow
[2020-07-11] MEDS: ALBUTEROL NEBULIZED 2.5 MG/3 ML INHALATION PRN (21:05)
[2020-07-11] MEDS: NICOTINE 14MG/24HR PATCH TRANSDERM SCH (21:10)
[2020-07-11] MEDS: SODIUM CHLORIDE 0.9% 1,000 ML IV SCH (21:12)
[2020-07-11] MEDS: ATORVASTATIN 80 MG TAB PO SCH (21:14)
[2020-07-12] MEDS: SODIUM CHLORIDE 0.9% 1,000 ML IV SCH ×4 (03:30→22:31)
[2020-07-12 04:59] LABS: Basophils % (A) 0 %; Eosinophils % (A) 0 %; HCT 34.1 % (39.0-53.0); HGB 11.1 gm/dL (13.0-17.5); Lymphocytes # (A) 1.5 k/uL (1.0-4.8); Lymphocytes % (A) 16 %; MCH 32.3 pg (25.0-35.0); MCHC 32.6 g/dL (31.0-37.0); Mean Platelet Volume 8.3; Monocytes # (A) 0.5 k/uL (0-1.0); Monocytes % (A) 6 %; Neutrophils # (A) 6.9 k/uL (1.3-7.7); Neutrophils % (A) 75 %; Platelet Count 158 k/uL (150-450); RBC 3.44 m/uL (4.30-5.90); RDW 14.4 % (11.5-15.5); WBC 9.2 k/uL (3.8-10.6)
[2020-07-12 05:08] LABS: African American GFR (CKD) >90 (>60 ml/min/1.73 sqM); Anion Gap 0 mmol/L; Blood Urea Nitrogen 20 mg/dL (9-20); Calcium 8.2 mg/dL (8.4-10.2); Carbon Dioxide 30 mmol/L (22-30); Chloride 106 mmol/L (98-107); Glucose 98 mg/dL (74-99); Non-African American GFR(CKD) 83 (>60 ml/min/1.73 sqM); Potassium 4.3 mmol/L (3.5-5.1); Sodium 136 mmol/L (137-145)
[2020-07-12 05:13] LABS: Appearance,Urine Clear (Clear); Bilirubin,Urine Negative (Negative); Blood,Urine Negative (Negative); Color,Urine Yellow; Glucose,Urine (UA) Negative (Negative); Ketones,Urine Negative (Negative); Leukocyte Esterase,Urine Negative (Negative); Nitrite,Urine Negative (Negative); Protein,Urine Negative (Negative); Specific Gravity,Urine 1.025 (1.001-1.035); Urobilinogen,Urine <2.0 mg/dL (<2.0)
--- NOTE | 2020-07-12 08:36 | P.CRDCN ---
History of Present Illness Consult date: 07/12/20 Chief complaint: Blood per rectum History of present illness: This is a very pleasant 64-year-old gentleman with coronary artery disease and prior stenting of the RCA, in July 2018 the patient underwent stenting of the distal right coronary artery and also he does have history of hypertension and dyslipidemia and also history of GI bleeding. We consulted to see the patient for the management of coronary artery disease. The patient presented to the hospital complaining of loud per rectum. He was in his usual state of health yesterday when he felt that he wanted go to the bathroom. In the bathroom the patient did notice small amount of blood with the stool. Subsequently he noticed larger amount of blood. After that he started experiencing abdominal discomfort. No symptoms of chest pain or chest discomfort or dizziness or ligh theadedness and no clear-cut loss of consciousness or syncope. He presented to the emergency department. His hemoglobin remains stable around 13 but the following hemoglobin came in to be around 11.. WBC is within normal limits. The EKG showed sinus rhythm without any significant ST or T-wave abnormalities. Enzymes came in to be also unremarkable. We consulted to see the patient because of history of coronary artery disease. The patient was seen by the GI service and no plan to perform an endoscopy or colonoscopy at this point. Please note that the patient underwent across copy in 2019 and that revealed stable diverticulosis. During this admission the patient was receiving only antiplatelet with aspirin. He was not on any nonsteroid anti-inflammatory medications. Past Medical History Past Medical History: Coronary Artery Disease (CAD), COPD, Hyperlipidemia, Myocardial Infarction (VT) Additional Past Medical History / Comment(s): . Last Myocardial Infarction Date:: 07/2018 History of Any Multi-Drug Resistant Organisms: None Reported Past Surgical History: Heart Catheterization With Stent, Hernia Repair Past Anesthesia/Blood Transfusion Reactions: No Reported Reaction Date of Last Stent Placement:: 07/2018 Smoking Status: Current every day smoker - Past Family History Father Family Medical History: Hypertension Medications and Allergies Home Medications Medication Instructions Recorded Confirmed Type Aspirin EC [Ecotrin Low Dose] 81 mg PO DAILY 09/25/16 07/11/20 History Metoprolol Tartrate [Lopressor] 25 mg PO BID #60 tab 08/09/18 07/11/20 Rx Nitroglycerin Sl Tabs [Nitrostat] 0.4 mg SUBLINGUAL Q5M PRN #25 tab 08/09/18 07/11/20 Rx Atorvastatin [Lipitor] 80 mg PO HS 09/16/18 07/11/20 History lisinopriL [Zestril] 5 mg PO DAILY 07/11/20 07/11/20 History Allergies Allergy/AdvReac Type Severity Reaction Status Date / Time budesonide [From Symbicort] Allergy Swelling Verified 07/11/20 12:00 formoterol [From Symbicort] Allergy Swelling Verified 07/11/20 12:00 Physical Exam Vitals: Vital Signs Temp Pulse Resp BP Pulse Ox 07/12/20 07:00 104 H 24 134/66 96 07/12/20 06:00 74 16 132/68 96 07/12/20 05:00 93 25 H 127/67 95 07/12/20 04:00 98.5 F 72 16 104/61 96 07/12/20 03:00 73 15 114/61 95 07/12/20 02:00 78 16 98/61 97 07/12/20 01:00 73 14 107/62 95 07/12/20 00:00 98.4 F 75 15 111/57 95 07/11/20 23:41 73 20 94 L 07/11/20 23:00 92 14 121/67 95 07/11/20 22:00 71 11 L 91/51 94 L 07/11/20 21:23 70 07/11/20 21:05 82 07/11/20 21:00 86 12 111/57 94 L 07/11/20 20:00 98.1 F 81 16 124/60 90 L 07/11/20 19:00 75 12 143/73 95 07/11/20 18:00 73 19 110/64 93 L 07/11/20 17:00 72 16 142/79 89 L 07/11/20 16:00 81 13 125/63 96 07/11/20 15:00 94 24 130/72 95 07/11/20 14:30 97.9 F 77 18 80/56 99 07/11/20 14:00 96.6 F L 81 28 H 76/52 100 07/11/20 13:00 98.1 F 66 20 133/66 99 07/11/20 12:30 70 18 119/72 99 07/11/20 11:45 78 20 122/66 99 07/11/20 11:15 98.0 F 77 20 96/58 97 Intake and Output 07/11/20 07/12/20 07/12/20 22:59 06:59 14:59 Intake Total 150 1200 150 Output Total 400 200 Balance -250 1000 150 Intake: Intake, IV Titration 150 1200 150 Amount Sodium Chloride 0.9% 1, 150 1200 150 000 ml @ 150 mls/hr IV . Q6H40M [facility] Rx#:[id number] Output: Urine 400 200 Other: Voiding Method Urinal Urinal # Voids 1 Weight 103.555 kg 104 kg - Constitutional General appearance: no acute distress - Respiratory Respiratory: bilateral: CTA - Cardiovascular Rhythm: regular Heart sounds: normal: S1, S2 Results 07/12/20 04:39 07/12/20 04:39 Cardiac Enzymes 07/11/20 07/11/20 Range/Units 11:43 11:43 AST 27 (17-59) U/L Troponin I <0.012 (0.000-0.034) ng/mL Coagulation 07/11/20 Range/Units 11:43 PT 10.3 (9.0-12.0) sec APTT 21.1 L (22.0-30.0) sec CBC 07/11/20 07/11/20 07/12/20 Range/Units 11:43 15:06 04:39 WBC 16.8 H 14.8 H 9.2 (3.8-10.6) k/uL RBC 4.33 4.07 L 3.44 L (4.30-5.90) m/uL Hgb 13.9 13.2 11.1 L (13.0-17.5) gm/dL Hct 42.9 42.1 34.1 L (39.0-53.0) % Plt Count 185 169 158 (150-450) k/uL Comprehensive Metabolic Panel 07/11/20 07/12/20 Range/Units 11:43 04:39 Sodium 139 136 L (137-145) mmol/L Potassium 4.9 4.3 (3.5-5.1) mmol/L Chloride 107 106 (98-107) mmol/L Carbon Dioxide 27 30 (22-30) mmol/L BUN 20 20 (9-20) mg/dL Creatinine 1.09 0.97 (0.66-1.25) mg/dL Glucose 115 H 98 (74-99) mg/dL Calcium 8.8 8.2 L (8.4-10.2) mg/dL AST 27 (17-59) U/L ALT 21 (4-49) U/L Alkaline Phosphatase 79 (38-126) U/L Total Protein 6.1 L (6.3-8.2) g/dL Albumin 3.4 L (3.5-5.0) g/dL Current Medications Generic Name Dose Route Start Last Admin Trade Name Freq PRN Reason Stop Dose Admin Acetaminophen 650 mg 07/11/20 12:19 Acetaminophen Tab 325 Mg Tab PO Q6HR PRN Mild Pain or Fever > 100.5 Hydrocodone Bitart/Acetaminophen 1 each 07/11/20 12:19 Hydrocodone/Apap 5-325mg 1 Each Tab PO Q4HR PRN Moderate Pain Albuterol Sulfate 2.5 mg 07/11/20 20:49 07/11/20 21:05 Albuterol Nebulized 2.5 Mg/3 Ml INHALATION 2.5 mg RT-QID PRN Administration Shortness Of Breath Or Wheezing Alprazolam 0.25 mg 07/11/20 14:29 Alprazolam 0.25 Mg Tab PO TID PRN Anxiety Atorvastatin Calcium 80 mg 07/11/20 21:00 07/11/20 21:14 Atorvastatin 80 Mg Tab PO 80 mg HS MAXIME Administration Sodium Chloride 1,000 mls @ 150 mls/hr 07/11/20 20:30 07/12/20 03:30 Saline 0.9% IV 150 mls/hr .Q6H40M MAXIME Administration Morphine Sulfate 4 mg 07/11/20 12:19 Morphine Sulfate 4 Mg/Ml Syringe IV Q4HR PRN Severe Pain Naloxone HCl 0.2 mg 07/11/20 12:19 Naloxone 0.4 Mg/Ml 1 Ml Vial IV Q2M PRN Opioid Reversal Nicotine 1 patch 07/11/20 14:45 07/11/20 21:10 Nicotine 14mg/24hr Patch TRANSDERM Not Given DAILY MAXIME Ondansetron HCl 4 mg 07/11/20 12:19 Ondansetron 4 Mg/2 Ml Vial IVP Q8HR PRN Nausea And Vomiting Pantoprazole Sodium 40 mg 07/11/20 12:30 07/11/20 12:52 Pantoprazole 40 Mg/10 Ml Vial IV 40 mg DAILY MAXIME Administration Temazepam 15 mg 07/11/20 14:29 Temazepam 15 Mg Cap PO HS PRN Insomnia Intake and Output 07/11/20 07/12/20 07/12/20 22:59 06:59 14:59 Intake Total 150 1200 150 Output Total 400 200 Balance -250 1000 150 Intake: Intake, IV Titration 150 1200 150 Amount Sodium Chloride 0.9% 1, 150 1200 150 000 ml @ 150 mls/hr IV . Q6H40M [facility] Rx#:[id number] Output: Urine 400 200 Other: Voiding Method Urinal Urinal # Voids 1 Weight 103.555 kg 104 kg 07/12/20 04:39 07/12/20 04:39 Assessment and Plan Assessment: Assessment #1 blood per rectum #2 blood loss anemia #3 coronary artery disease seems to be stable #4 multiple comorbid conditions Plan #1 continue the current medical regimen #2 restart the patient back on aspirin once he is stable from the gastrointestinal standpoint overview #3 no need for any cardiac workup at this point #4 monitor the hemoglobin #5 follow-up with the patient
[2020-07-12] MEDS: PANTOPRAZOLE 40 MG/10 ML VIAL IV SCH (08:56)
[2020-07-12] MEDS: NICOTINE 14MG/24HR PATCH TRANSDERM SCH (15:01)
--- NOTE | 2020-07-12 17:58 | PN ---
PROGRESS NOTE DATE OF SERVICE: 07/12/2020 INTERVAL HISTORY: This is a 64-year-old gentleman who was admitted with acute lower gastrointestinal bleeding, acute blood loss anemia with hypotension secondary to hypovolemic shock is being closely monitored at this time. Patient received no transfusion. Hemoglobin is 11.1 at this time. The blood pressure improved with IV fluids. Calcium is 8.2. Sodium is 136. The patient underwent colonoscopy a year ago that showed diverticulosis. The patient is being closely monitored. Multiple consultants are following the patient closely. Cardiology also has seen the patient because of history of coronary artery disease and stenting also. Aspirin may be restarted once the patient is stable from the gastrointestinal point of view as per Cardiology. No chest pain. No palpitations. PAST MEDICAL HISTORY: Reviewed. REVIEW OF SYSTEMS: CARDIOVASCULAR SYSTEM: No angina. RESPIRATORY SYSTEM: As mentioned earlier. GI: As mentioned earlier. : As mentioned earlier. NERVOUS SYSTEM: No numbness or weakness. CURRENT MEDICATIONS: Reviewed include Tylenol, Churdan, Ventolin, Xanax, Lipitor, Narcan, Zofran, Protonix, Restoril. PHYSICAL EXAM: GENERAL: Patient is alert and oriented times three. VITAL SIGNS: Pulse 79, blood pressure 124/67, respirations 17, temperature normal, pulse ox normal. HEENT: Conjunctivae normal. Oral mucosa moist. NECK: No jugular venous distention. No carotid bruits. RESPIRATORY: Breath sounds diminished at the bases. No rhonchi, no crackles. HEART: S1 and S2, muffled. ABDOMEN: Soft, obese, no tenderness. No masses palpable. EXTREMITIES: No edema, no swelling. NERVOUS: No focal deficits. LAB STUDIES: WBC 9.2, hemoglobin 11.1, sodium 136. ASSESSMENT: 1. Acute lower gastrointestinal bleeding with acute blood loss anemia with hypotension secondary to hypovolemic shock possibly secondary to diverticular bleed. 2. History of previous GI bleed and possible diverticular. 3. Increased WBC, possibly reactive. 4. Elevated lactic acid secondary to dehydration present on admission. 5. Increased random blood sugar. 6. History of coronary artery disease with stent. 7. Chronic obstructive pulmonary disease. 8. Hyperlipidemia. 9. History of myocardial infarction. 10.History of hernia repair. 11.Continued ongoing nicotine dependence. 12.Obesity with body mass index of 34.8. 13.FULL CODE. RECOMMENDATIONS AND DISCUSSION: I recommend to continue current management and continue symptomatic treatment. Otherwise at this time I recommend continue the proton pump inhibitors. Follow closely with Cardiology. I would also recommend monitor fluid/electrolyte balance. The prognosis is guarded. Dr. Odonnell is not planning any endoscopies at this time. Discussed with the patient who understands and agrees. Further recommendations to follow. MMODL / IJN: [id number] /
--- NOTE | 2020-07-12 18:03 | P.PN ---
Subjective Progress Note Date: 07/12/20 Principal diagnosis: Blood per rectum, diverticulosis Patient is seen lying in bed today. He is had no further blood per rectum since admission. He is passing gas. He is denying any abdominal pain at this time. Objective - Vital Signs Vital signs: Vital Signs Temp 98.5 F 07/12/20 04:00 Pulse 75 07/12/20 10:00 Resp 18 07/12/20 10:00 BP 136/71 07/12/20 10:00 Pulse Ox 97 07/12/20 10:00 Intake & Output 07/11/20 07/12/20 07/12/20 18:59 06:59 18:59 Intake Total 1350 602 Output Total 200 400 Balance -200 950 602 Weight 103.555 kg 104 kg Intake: Intake, IV Titration 1350 602 Amount Sodium Chloride 0.9% 1, 1350 602 000 ml @ 150 mls/hr IV . Q6H40M [facility] Rx#:[id number] Output: Urine 200 400 Other: Voiding Method Indwelling Catheter Urinal Urinal # Voids 1 - Exam On physical examination, patient appears comfortable in no apparent distress. HEAD: Normocephalic, atraumatic. EYES: No scleral icterus. No conjunctival injection. MOUTH: No lesions, tongue midline. NECK: Trachea midline, no gross abnormalities. ABDOMEN: Soft, obese, nontender to palpation. Bowel sounds are positive. No organomegaly. No guarding or rigidity. EXTREMITIES: No pedal edema. SKIN: No rashes, no jaundice. NEUROLOGIC: Alert and oriented x3. No focal deficits. - Labs CBC & Chem 7: 07/12/20 04:39 07/12/20 04:39 Labs: Abnormal Lab Results - Last 24 Hours (Table) 07/11/20 07/11/20 07/11/20 Range/Units 11:43 11:43 11:43 WBC (3.8-10.6) k/uL RBC (4.30-5.90) m/uL Hgb (13.0-17.5) gm/dL Hct (39.0-53.0) % MCV (80.0-100.0) fL Neutrophils # (Manual) (1.3-7.7) k/uL APTT 21.1 L (22.0-30.0) sec Sodium (137-145) mmol/L Glucose 115 H (74-99) mg/dL Plasma Lactic Acid Mayur 2.8 H* (0.7-2.0) mmol/L Calcium (8.4-10.2) mg/dL Total Protein 6.1 L (6.3-8.2) g/dL Albumin 3.4 L (3.5-5.0) g/dL Crossmatch 07/11/20 07/11/20 07/11/20 Range/Units 11:43 15:06 15:06 WBC 14.8 H (3.8-10.6) k/uL RBC 4.07 L (4.30-5.90) m/uL Hgb (13.0-17.5) gm/dL Hct (39.0-53.0) % MCV 103.3 H (80.0-100.0) fL Neutrophils # (Manual) 12.58 H (1.3-7.7) k/uL APTT (22.0-30.0) sec Sodium (137-145) mmol/L Glucose (74-99) mg/dL Plasma Lactic Acid Mayur 2.1 H* (0.7-2.0) mmol/L Calcium (8.4-10.2) mg/dL Total Protein (6.3-8.2) g/dL Albumin (3.5-5.0) g/dL Crossmatch See Detail 07/12/20 07/12/20 Range/Units 04:39 04:39 WBC (3.8-10.6) k/uL RBC 3.44 L (4.30-5.90) m/uL Hgb 11.1 L (13.0-17.5) gm/dL Hct 34.1 L (39.0-53.0) % MCV (80.0-100.0) fL Neutrophils # (Manual) (1.3-7.7) k/uL APTT (22.0-30.0) sec Sodium 136 L (137-145) mmol/L Glucose (74-99) mg/dL Plasma Lactic Acid Mayur (0.7-2.0) mmol/L Calcium 8.2 L (8.4-10.2) mg/dL Total Protein (6.3-8.2) g/dL Albumin (3.5-5.0) g/dL Crossmatch Assessment and Plan (1) GI bleed Narrative/Plan: 64-year-old male with multiple medical comorbidities presenting to the hospital for painless for blood per rectum. Patient reports initially seeing only a small amount of blood but then had a large bloody bowel movement. No further episodes since admission. Hemoglobin on presentation was stable at 13.9. Her colonoscopy in September 2018 for evaluation of similar symptoms of blood per rectum were significant for diverticulosis. Unclear etiology, suspicion is for recurrent diverticular bleed, differential also includes AVM, stercoral ulcer, or other etiology. No further episodes of bleeding since admission. Hemoglobin stable at 11.1. Current Visit: Yes Status: Acute Code(s): K92.2 - GASTROINTESTINAL HEMORRHAGE, UNSPECIFIED SNOMED Code(s): 27842792 (2) Diverticulosis Current Visit: Yes Status: Acute Code(s): K57.90 - DVRTCLOS OF INTEST, PART UNSP, W/O PERF OR ABSCESS W/O BLEED SNOMED Code(s): 572550269 Plan: supportive care Okay for liquid diet IV fluid hydration Continue monitor for signs or symptoms of GI bleeding Continue to monitor hemoglobin and hematocrit and transfuse as needed No plan for endoscopic evaluation at this time Okay to resume aspirin therapy tomorrow if hemoglobin stable and no further bleeding Thank you for allowing us to participate in the care of the patient we will continue to follow
--- NOTE | 2020-07-12 18:04 | CONS ---
CONSULTATION PULMONARY/CRITICAL CARE CONSULTATION NOTE: DATE OF SERVICE: July 12, 2019. REASON FOR CONSULTATION: GI bleed HISTORY OF PRESENT ILLNESS: This is a 64-year-old male who sees Dr. Arellano as a primary. He comes in with complaints of melanotic stools. Initially I was told that he had bright red bleeding per rectum, but according to him, the patient really had mostly dark tarry stools or melanotic stools. He states he was feeling weak yesterday. He was attempting to have a bowel movement. Really had a hard time standing up because of weakness and feeling like he was going to pass out. He also states that many times he felt like he was having a bowel movement or was going to have a bowel movement and only passed gas. He did have mild abdominal cramping. This same thing happened about 2 years ago. He had a colonoscopy at that time, which showed diffuse diverticular disease. He denies any chest pain or chest discomfort. Denies any shortness of breath or difficulty breathing. Denies any fever or chills. His scope 2 years ago was done by Dr. Hawley. It was in October, I believe, 2018. Currently, the patient is on 2 L nasal cannula. He is getting saline at 150 mL an hour. He has a history of hypertension, hyperlipidemia, diverticular disease, coronary artery disease with previous stenting, and COPD from ongoing tobacco use. HOME MEDICATIONS: Include low-dose aspirin, Lipitor, Zestril, metoprolol, and sublingual nitroglycerin. ALLERGIES: INCLUDE SYMBICORT. MEDICAL HISTORY: As above includes CAD, stenting, COPD, hyperlipidemia, myocardial infarction, and hypertension. The patient does have a rescue inhaler at home for COPD that he uses from time to time. SURGICAL HISTORY: Includes heart catheterization with stent, and hernia repair. SOCIAL HISTORY: Positive for ongoing tobacco use. Denies any alcohol use or illicit drug use. FAMILY HISTORY: Positive for father with hypertension. SOCIAL HISTORY: When I asked him to quantitated his tobacco use, he probably smoked for about 50 years or maybe a bit more than that. REVIEW OF SYSTEMS: CONSTITUTIONAL weakness, lightheadedness. NEUROLOGIC negative. HEENT negative. CARDIOVASCULAR negative. PULMONARY negative. GI melanotic stools. GI bleed. negative. RHEUMATOLOGIC negative. IMMUNOLOGIC negative. ENDOCRINOLOGIC negative. DERMATOLOGIC negative. PHYSICAL EXAMINATION: VITAL SIGNS: Current vital signs are reviewed. Temperature is 98.5. Heart rate 75, respiratory rate 18, blood pressure 136/71, mean 92 and 2 L nasal cannula saturations are 97%. GENERAL: Appears in no acute distress. No respiratory distress. No audible wheezing or use of accessory muscles. HEENT: Examination is grossly unremarkable. NECK: Supple. Full range of motion. No adenopathy. Neck veins are flat. CARDIOVASCULAR: Examination reveals regular rhythm and rate. S1, S2 normal. No S3, S4, or murmur. Heart rate 75 beats per minute. LUNGS: A few scattered rhonchi. No wheezes or crackles. Breath sounds equal. ABDOMEN: Soft. Mildly distended. No tenderness. Bowel sounds are noted. EXTREMITIES are intact. No cyanosis, clubbing, or edema. SKIN: Without rash. NEUROLOGIC: Examination is nonfocal. LABS: Reviewed. White count 9.2, hemoglobin 11.1 down from 13.2, hematocrit 34.1 down from 42.1, and platelet count normal. Sodium 136, potassium 4.3, chloride 106, CO2 30, anion gap 0, BUN and creatinine were 20 and 0.97. Initial lactic acid 2.1. Followup lactic acid was 1. Calcium 8.2. Urine is negative. A chest x-ray shows no acute process. Medications are reviewed. Currently, the patient is on Tylenol, albuterol inhaler, Xanax, Lipitor, [place]in, morphine, Narcan, nicotine patch, Zofran, Protonix, saline IV at 150 an hour, and Restoril. ASSESSMENT: 1. Lower gastrointestinal bleed, likely secondary to diverticular disease, which was established a couple years ago. 2. Prior history of similar gastrointestinal bleed 2 years ago. 3. History of chronic obstructive pulmonary disease from chronic and ongoing tobacco use. 4. History of chronic diverticular disease. 5. History of coronary artery disease with previous stent placement. 6. Prior history of myocardial infarction. 7. Hypertension. 8. Hyperlipidemia. PLAN: The patient is in the ICU. He will be seen by Gastroenterology. Additional recommendations and suggestions are forthcoming. He has also been seen by Dr. Siegel in cardiology. If the patient is stable and not having any additional bleeding, he can be transferred out of the ICU. MMODL / IJN: [id number] /
[2020-07-12] MEDS: ALBUTEROL NEBULIZED 2.5 MG/3 ML INHALATION PRN (19:49)
[2020-07-12] MEDS: ATORVASTATIN 80 MG TAB PO SCH (20:30)
[2020-07-13 04:30] LABS: Basophils % (A) 0 %; Eosinophils # (A) 0.1 k/uL (0-0.7); Eosinophils % (A) 1 %; HCT 32.7 % (39.0-53.0); HGB 10.9 gm/dL (13.0-17.5); Lymphocytes # (A) 1.3 k/uL (1.0-4.8); Lymphocytes % (A) 17 %; MCH 32.7 pg (25.0-35.0); MCHC 33.2 g/dL (31.0-37.0); MCV 98.6 fL (80.0-100.0); Monocytes # (A) 0.5 k/uL (0-1.0); Monocytes % (A) 6 %; Neutrophils # (A) 5.4 k/uL (1.3-7.7); Neutrophils % (A) 73 %; Platelet Count 165 k/uL (150-450); RBC 3.32 m/uL (4.30-5.90); RDW 14.3 % (11.5-15.5); WBC 7.3 k/uL (3.8-10.6)
[2020-07-13 04:37] LABS: African American GFR (CKD) >90 (>60 ml/min/1.73 sqM); Anion Gap 1 mmol/L; Blood Urea Nitrogen 12 mg/dL (9-20); Calcium 8.2 mg/dL (8.4-10.2); Carbon Dioxide 27 mmol/L (22-30); Chloride 108 mmol/L (98-107); Glucose 94 mg/dL (74-99); Non-African American GFR(CKD) >90 (>60 ml/min/1.73 sqM); Potassium 4.1 mmol/L (3.5-5.1); Sodium 136 mmol/L (137-145)
[2020-07-13] MEDS: SODIUM CHLORIDE 0.9% 1,000 ML IV SCH ×2 (05:13→13:40)
[2020-07-13] MEDS: ALBUTEROL NEBULIZED 2.5 MG/3 ML INHALATION PRN ×3 (07:43→15:29)
[2020-07-13] MEDS: NICOTINE 14MG/24HR PATCH TRANSDERM SCH (08:30)
[2020-07-13] MEDS: PANTOPRAZOLE 40 MG/10 ML VIAL IV SCH ×2 (08:30→20:29)
--- NOTE | 2020-07-13 09:36 | P.PN ---
Subjective Progress Note Date: 07/13/20 Principal diagnosis: Blood per rectum, diverticulosis Patient is seen lying in bed this morning. He reports a bowel movement with some dark old blood in it. Hemoglobin stable at 10.9 11.1 yesterday. Objective - Vital Signs Vital signs: Vital Signs Temp 98.6 F 07/13/20 05:00 Pulse 76 07/13/20 07:44 Resp 20 07/13/20 05:00 BP 163/84 07/13/20 05:00 Pulse Ox 92 L 07/13/20 05:00 Intake & Output 07/12/20 07/13/20 07/13/20 18:59 06:59 18:59 Intake Total 1802 2130 Output Total 950 1555 Balance 852 575 Intake: IV 1500 0.9 NaCl- 1500 Intake, IV Titration 1802 150 Amount Sodium Chloride 0.9% 1, 1802 150 000 ml @ 150 mls/hr IV . Q6H40M [facility] Rx#:[id number] Oral 480 Output: Urine 950 1555 Other: Voiding Method Urinal Urinal # Bowel Movements 1 - Exam On physical examination, patient appears comfortable in no apparent distress. HEAD: Normocephalic, atraumatic. EYES: No scleral icterus. No conjunctival injection. MOUTH: No lesions, tongue midline. NECK: Trachea midline, no gross abnormalities. ABDOMEN: Soft, obese, nontender to palpation. Bowel sounds are positive. No organomegaly. No guarding or rigidity. EXTREMITIES: No pedal edema. SKIN: No rashes, no jaundice. NEUROLOGIC: Alert and oriented x3. No focal deficits. - Labs CBC & Chem 7: 07/13/20 04:12 07/13/20 04:12 Labs: Abnormal Lab Results - Last 24 Hours (Table) 07/13/20 07/13/20 Range/Units 04:12 04:12 RBC 3.32 L (4.30-5.90) m/uL Hgb 10.9 L (13.0-17.5) gm/dL Hct 32.7 L (39.0-53.0) % Sodium 136 L (137-145) mmol/L Chloride 108 H (98-107) mmol/L Calcium 8.2 L (8.4-10.2) mg/dL Microbiology - Last 24 Hours (Table) 07/11/20 15:06 Blood Culture - Preliminary Blood No Growth after 24 hours Assessment and Plan (1) GI bleed Narrative/Plan: 64-year-old male with multiple medical comorbidities presenting to the hospital for painless for blood per rectum. Patient reports initially seeing only a small amount of blood but then had a large bloody bowel movement. No further ep isodes since admission. Hemoglobin on presentation was stable at 13.9, and is currently 10.9 from 11.1 yesterday. He denies any excessive NSAID use and there was no elevation in the BUN: Creatinine. Her colonoscopy in September 2018 for evaluation of similar symptoms of blood per rectum were significant for diverticulosis. Unclear etiology, suspicion is for recurrent diverticular bleed, differential also includes AVM, stercoral ulcer, or other etiology. No further episodes of bleeding since admission, he reports a bowel movement last night which was normal with some dark old blood also noted. Hemoglobin stable at 10.9 from 11.1. Current Visit: Yes Status: Acute Code(s): K92.2 - GASTROINTESTINAL HEMORRHAGE, UNSPECIFIED SNOMED Code(s): 72589039 (2) Diverticulosis Current Visit: Yes Status: Acute Code(s): K57.90 - DVRTCLOS OF INTEST, PART UNSP, W/O PERF OR ABSCESS W/O BLEED SNOMED Code(s): 494305648 Plan: supportive care Okay for full liquid IV fluid hydration Continue monitor for signs or symptoms of GI bleeding Continue to monitor hemoglobin and hematocrit and transfuse as needed No plan for endoscopic evaluation at this time Continue Protonix twice daily Okay to resume aspirin therapy Thank you for allowing us to participate in the care of the patient we will continue to follow
--- NOTE | 2020-07-13 11:51 | P.PN ---
Subjective Progress Note Date: 07/13/20 Principal diagnosis: GI bleed The patient is seen today 07/13/2020 in follow-up on the regular medical floor. He was initially in the intensive care unit with complaints of melanotic stools. He stated his stools are mostly dark tarry stools prior to his arrival to the emergency room. He has not had any further bleeding since admission. Hemoglobin remains stable at 10.9. He did not require any blood transfusions this admission. He had been seen by GI services. The plan is to discharge home in the a.m. if no further bleeding versus ABGs/colonoscopy of bleeding were to recur. No shortness of breath cough or congestion. Maintaining O2 saturation in the 90s on room air. He has 0.9 normal saline at 150 ML's per hour. No abdominal discomfort. Objective - Vital Signs Vital signs: Vital Signs Temp 98.1 F 07/13/20 11:43 Pulse 64 07/13/20 11:43 Resp 16 07/13/20 11:43 BP 143/65 07/13/20 11:43 Pulse Ox 95 07/13/20 11:43 Intake & Output 07/12/20 07/13/20 07/13/20 18:59 06:59 18:59 Intake Total 1802 2130 Output Total 950 1555 Balance 852 575 Intake: IV 1500 0.9 NaCl- 1500 Intake, IV Titration 1802 150 Amount Sodium Chloride 0.9% 1, 1802 150 000 ml @ 150 mls/hr IV . Q6H40M [facility] Rx#:[id number] Oral 480 Output: Urine 950 1555 Other: Voiding Method Urinal Urinal Urinal # Bowel Movements 1 - Exam GENERAL EXAM: Alert, active, etc. 4-year-old gentleman, on room air, comfortable in no apparent distress. HEAD: Normocephalic. EYES: Normal reaction of pupils, equal size. NOSE: Clear with pink turbinates. THROAT: No erythema or exudates. NECK: No masses, no JVD. CHEST: No chest wall deformity. LUNGS: Equal air entry with no crackles, wheeze, rhonchi or dullness. CVS: S1 and S2 normal with no audible murmur, regular rhythm. ABDOMEN: No hepatosplenomegaly, normal bowel sounds, no guarding or rigidity. SPINE: No scoliosis or deformity SKIN: No rashes CENTRAL NERVOUS SYSTEM: No focal deficits, tone is normal in all 4 extremities. EXTREMITIES: There is no peripheral edema. No clubbing, no cyanosis. Peripheral pulses are intact. - Labs CBC & Chem 7: 07/13/20 04:12 07/13/20 04:12 Labs: Abnormal Lab Results - Last 24 Hours (Table) 07/13/20 07/13/20 Range/Units 04:12 04:12 RBC 3.32 L (4.30-5.90) m/uL Hgb 10.9 L (13.0-17.5) gm/dL Hct 32.7 L (39.0-53.0) % Sodium 136 L (137-145) mmol/L Chloride 108 H (98-107) mmol/L Calcium 8.2 L (8.4-10.2) mg/dL Microbiology - Last 24 Hours (Table) 07/11/20 15:06 Blood Culture - Preliminary Blood No Growth after 24 hours Assessment and Plan Assessment: 1 Lower gastrointestinal bleed, likely secondary to diverticular disease which was established a couple of years ago. 2 Prior history of similar GI bleed 2 years ago 3 History of COPD 4 Chronic and ongoing tobacco dependence 5 History of diverticular disease 6 Coronary artery disease with previous stent placement 7 Hypertension 8 Hyperlipidemia Plan: The patient was seen and evaluated by Dr. Andre Zhou from the pulmonary and critical care standpoint If no further bleeding the plan is to discharge home in a.m. If bleeding were to recur the plan is for colonoscopy We will see him on an as-needed basis I, the cosigning physician, performed a history & physical examination of the patient. Lungs sounds are clear. Maintaining good O2 saturations in the 90s on room air. I discussed the assessment and plan of care with my nurse practitioner, Dede Wells. I attest to the above note as dictated by her.
--- NOTE | 2020-07-13 14:53 | PN ---
PROGRESS NOTE DATE OF SERVICE: 07/13/2020 INTERVAL HISTORY: This is a 64-year-old gentleman who was admitted with acute lower gastrointestinal bleeding was being closely monitored. Hemoglobin 10.9. The patient had minimal bleeding last night. Gastroenterology following the patient closely. Endoscopes have been deferred at this time. No chest pain. No palpitations. No fever. PHYSICAL EXAMINATION: GENERAL: Patient is alert and oriented times three. VITAL SIGNS: Pulse 64, blood pressure 143/65, respirations 16, temperature 98.1, pulse ox 94% on room air. HEENT: Conjunctivae normal. Oral mucosa moist. NECK: No jugular venous distention. No carotid bruits. No lymph node enlargement. RESPIRATORY: Breath sounds diminished at the bases. No rhonchi, no crackles. HEART: S1 and S2, muffled. ABDOMEN: Soft, obese, no tenderness. EXTREMITIES: No edema, no swelling. NERVOUS: No focal deficits. LAB STUDIES: WBC 7.3, hemoglobin 10.2, sodium 136. ASSESSMENT: 1. Acute lower gastrointestinal bleeding with acute blood loss anemia with hypotension secondary to hypovolemic shock possibly secondary to diverticular bleed. 2. History of previous gastrointestinal bleed with possible diverticular disease. 3. Increased WBC, possibly reactive. 4. Elevated lactic acid secondary to dehydration present on admission. 5. Increased random blood sugar. 6. History of coronary artery disease. 7. Chronic obstructive pulmonary disease. 8. Hyperlipidemia. 9. History of myocardial infarction. 10.History of hernia repair. 11.Continued ongoing nicotine dependence. 12.Obesity with body mass of 34.6. 13.FULL CODE. RECOMMENDATIONS AND DISCUSSION: I recommend to continue current management and symptomatic treatment. Otherwise, at this time, monitor hemoglobin closely. Other than that, I would recommend closely follow with Gastroenterology. Guarded prognosis because of multiple complex medical issues. Will repeat labs and orders. Further recommendations to follow. MMODL / IJN: [id number] /
[2020-07-13] MEDS: ATORVASTATIN 80 MG TAB PO SCH (20:29)
[2020-07-14 05:27] LABS: Basophils % (A) 0 %; Eosinophils # (A) 0.1 k/uL (0-0.7); Eosinophils % (A) 1 %; HGB 10.7 gm/dL (13.0-17.5); Lymphocytes # (A) 1.1 k/uL (1.0-4.8); Lymphocytes % (A) 14 %; MCH 32.7 pg (25.0-35.0); MCHC 33.4 g/dL (31.0-37.0); MCV 97.8 fL (80.0-100.0); Mean Platelet Volume 8.1; Monocytes # (A) 0.4 k/uL (0-1.0); Monocytes % (A) 5 %; Neutrophils # (A) 6.4 k/uL (1.3-7.7); Neutrophils % (A) 77 %; Platelet Count 176 k/uL (150-450); RBC 3.27 m/uL (4.30-5.90); RDW 14.5 % (11.5-15.5); WBC 8.2 k/uL (3.8-10.6)
[2020-07-14] MEDS: ALBUTEROL NEBULIZED 2.5 MG/3 ML INHALATION PRN ×4 (07:14→20:43)
[2020-07-14] MEDS: NICOTINE 14MG/24HR PATCH TRANSDERM SCH ×2 (08:28→08:38)
[2020-07-14] MEDS: PANTOPRAZOLE 40 MG/10 ML VIAL IV SCH ×2 (08:28→20:05)
[2020-07-14 09:36] LABS: African American GFR (CKD) 110.2 (60.0-200.0); Calcium 8.5 mg/dL (8.7-10.3); Non-African American GFR(CKD) 95.1 (60.0-200.0); Potassium 3.8 mmol/L (3.5-5.5)
[2020-07-14] MEDS: ASPIRIN 81 MG PO SCH (14:09)
--- NOTE | 2020-07-14 15:24 | P.PN ---
Subjective Progress Note Date: 07/14/20 This is a 64-year-old male who was recently admitted with acute lower gastrointestinal bleed and is being closely monitored. GI and broadcast producer following. Patient is on a medical surgical unit and was recently transferred from the ICU. Hemoglobin today is 10.7 and nursing staff reports dark stools with no blood noted. GI planning on following closely and monitoring for any GI bleed and deferring endoscopic interventions at this time unless further bleeding occurs. Aspirin is being held at this time. Will repeat a.m. labs and continue to monitor closely. Patient is afebrile. No reports of chest pain or palpitations noted. Tolerating diet with no reports of nausea or vomiting noted. Review of systems: Constitutional: No reports of fatigue, fever, or chills Cardiovascular: No reports of chest pain or palpitations Respiratory: No reports of shortness of breath or cough GI: No reports of nausea, vomiting, or diarrhea : No reports of dysuria or retention Neurovascular: No reports of weakness or numbness All medications have been reviewed Objective - Vital Signs Vital signs: Vital Signs Temp 98.1 F 07/14/20 04:18 Pulse 76 07/14/20 11:45 Resp 20 07/14/20 04:18 BP 172/79 07/14/20 04:18 Pulse Ox 92 L 07/14/20 04:18 Intake & Output 07/13/20 07/14/20 07/14/20 18:59 06:59 18:59 Intake Total 1500 720 Output Total 400 Balance 1500 320 Intake: IV 720 0.9 NaCl- 720 Intake, IV Titration 1500 Amount Sodium Chloride 0.9% 1, 1500 000 ml @ 150 mls/hr IV . Q6H40M [facility] Rx#:[id number] Output: Urine 400 Other: Voiding Method Urinal Urinal # Voids 1 - Exam Gen: This is a 64-year-old male sitting up awake, alert and oriented 3, well- developed, well-nourished, obese. Temp is 98.6F, pulse is 79, respirations are 16, blood pressure is 160/83, oxygen saturation is 93% on room air. HEENT: Head is atraumatic, normocephalic. Pupils equal, round. Sclerae is anicteric. NECK: Supple. No JVD. No lymphadenopathy. No thyromegaly. LUNGS: Breath sounds diminished bilaterally with no wheezing or rhonchi noted No intercostal retractions. HEART: S1, S2 muffled ABDOMEN: Soft. Obese. Bowel sounds are present. No masses. No tenderness. EXTREMITIES: No pedal edema. No calf tenderness. NEUROLOGICAL: Patient is awake, alert and oriented x3. Cranial nerves 2 through 12 are grossly intact. - Labs CBC & Chem 7: 07/14/20 04:29 07/14/20 04:29 Labs: Abnormal Lab Results - Last 24 Hours (Table) 07/14/20 07/14/20 Range/Units 04:29 04:29 RBC 3.27 L (4.30-5.90) m/uL Hgb 10.7 L (13.0-17.5) gm/dL Hct 32.0 L (39.0-53.0) % BUN 8.0 L (9.0-27.0) mg/dL BUN/Creatinine Ratio 10.00 L (12.00-20.00) Ratio Calcium 8.5 L (8.7-10.3) mg/dL Microbiology - Last 24 Hours (Table) 07/11/20 15:06 Blood Culture - Preliminary Blood No Growth after 48 hours Assessment and Plan Assessment: Acute lower gastrointestinal bleeding with acute blood loss anemia with hypotension secondary to hypovolemic shock possibly secondary to diverticular bleed History of previous gastrointestinal bleed with possible diverticular disease Increased white blood count, possibly reactive Elevated lactic acid secondary to dehydration, present on admission Increased random blood sugar history of coronary artery disease Chronic obstructive pulmonary disease Hyperlipidemia history of myocardial infarction History of hernia repair Continued ongoing nicotine dependence Obesity with a BMI of 34.6 Full code Recommendations and discussion: Commended continue current medications, management, and symptomatic treatment. Continue with Protonix. Continue to monitor for bleeding. Will repeat a.m. labs. GI following. Patient reportedly had dark stools with no blood noted and will continue to monitor closely. Due to multiple complex medical issues, prognosis is guarded. Further recommendations to follow.
--- NOTE | 2020-07-14 17:41 | P.PN ---
Subjective Progress Note Date: 07/14/20 Principal diagnosis: Blood per rectum, diverticulosis Is a 64-year-old male who came in with blood per rectum with a history of diverticulosis. He had a prior colonoscopy in September 2018 for rectal bleed, which showed diverticulosis. He had 1 bowel movement yesterday evening with maroon colored stool. He has had no further bleeding today. He is tolerating a full liquid diet. He denies any abdominal pain, nausea, or vomiting. His hemoglobin is stable at 10.7. Objective - Vital Signs Vital signs: Vital Signs Temp 98.6 F 07/14/20 11:00 Pulse 74 07/14/20 16:39 Resp 16 07/14/20 11:00 BP 160/83 07/14/20 11:00 Pulse Ox 93 L 07/14/20 16:32 Intake & Output 07/13/20 07/14/20 07/14/20 18:59 06:59 18:59 Intake Total 1500 720 Output Total 400 400 Balance 1500 320 -400 Intake: IV 720 0.9 NaCl- 720 Intake, IV Titration 1500 Amount Sodium Chloride 0.9% 1, 1500 000 ml @ 150 mls/hr IV . Q6H40M [facility] Rx#:[id number] Output: Urine 400 400 Other: Voiding Method Urinal Urinal Urinal # Voids 1 2 - Exam General appearance: The patient is alert, oriented, in no acute distress. HET: Head is normocephalic and atraumatic. Conjunctiva pink. Sclera anicteric. Neck: Supple without lymphadenopathy. Abdomen: Soft, nontender, nondistended with bowel sounds. No guarding or rigidity. Extremities: Normal skin color and turgor. No pedal edema Neurological: No focal deficits. Alert and oriented 3. - Labs CBC & Chem 7: 07/14/20 04:29 07/14/20 04:29 Labs: Abnormal Lab Results - Last 24 Hours (Table) 07/14/20 07/14/20 Range/Units 04:29 04:29 RBC 3.27 L (4.30-5.90) m/uL Hgb 10.7 L (13.0-17.5) gm/dL Hct 32.0 L (39.0-53.0) % BUN 8.0 L (9.0-27.0) mg/dL BUN/Creatinine Ratio 10.00 L (12.00-20.00) Ratio Calcium 8.5 L (8.7-10.3) mg/dL Microbiology - Last 24 Hours (Table) 07/11/20 15:06 Blood Culture - Preliminary Blood No Growth after 72 hours Assessment and Plan (1) GI bleed Narrative/Plan: 64-year-old male with multiple medical comorbidities presenting to the hospital for painless for blood per rectum. Patient reports initially seeing only a small amount of blood but then had a large bloody bowel movement. No further episodes since admission. Hemoglobin on presentation was stable at 13.9, and is currently 10.9 from 11.1 yesterday. He denies any excessive NSAID use and there was no elevation in the BUN: Creatinine. Her colonoscopy in September 2018 for evaluation of similar symptoms of blood per rectum were significant for diverticulosis. Unclear etiology, suspicion is for recurrent diverticular bleed, differential also includes AVM, stercoral ulcer, or other etiology. Had a reported small bowel movement with maroon colored stool yesterday evening. No further bleeding today. Hemoglobin stable at 10.7 from 10.9 yesterday. Current Visit: Yes Status: Acute Code(s): K92.2 - GASTROINTESTINAL HEMORRHAGE, UNSPECIFIED SNOMED Code(s): 39697079 (2) Diverticulosis Current Visit: Yes Status: Acute Code(s): K57.90 - DVRTCLOS OF INTEST, PART UNSP, W/O PERF OR ABSCESS W/O BLEED SNOMED Code(s): 762638198 Plan: 1. Supportive care 2. Okay for full liquid 3. IV fluid hydration 4. Continue monitor for signs or symptoms of GI bleeding 5. Continue to monitor hemoglobin and hematocrit and transfuse as needed 6. No plan for endoscopic evaluation at this time, if patient has further bleeding will consider colonoscopy this admission 7. Continue Protonix twice daily 8. Okay to resume aspirin therapy Thank you for allowing us to participate in the care of the patient we will continue to follow Dr. Abdoulaye Harrison I agree with the dictator's note, documented as a scribe by Kayla Fermin.
[2020-07-14] MEDS: ATORVASTATIN 80 MG TAB PO SCH (20:05)
[2020-07-15] MEDS: ALBUTEROL NEBULIZED 2.5 MG/3 ML INHALATION PRN ×4 (07:17→19:37)
[2020-07-15] MEDS: PANTOPRAZOLE 40 MG/10 ML VIAL IV SCH ×2 (08:17→19:58)
[2020-07-15] MEDS: ASPIRIN 81 MG PO SCH (08:17)
[2020-07-15] MEDS: NICOTINE 14MG/24HR PATCH TRANSDERM SCH (08:17)
[2020-07-15 09:41] LABS: Basophils % (A) 0 %; Eosinophils # (A) 0.1 k/uL (0-0.7); Eosinophils % (A) 1 %; HCT 34.2 % (39.0-53.0); HGB 11.6 gm/dL (13.0-17.5); Lymphocytes # (A) 0.8 k/uL (1.0-4.8); Lymphocytes % (A) 11 %; MCH 33.2 pg (25.0-35.0); MCHC 33.9 g/dL (31.0-37.0); MCV 98.1 fL (80.0-100.0); Monocytes # (A) 0.5 k/uL (0-1.0); Monocytes % (A) 6 %; Neutrophils # (A) 6.2 k/uL (1.3-7.7); Neutrophils % (A) 81 %; Platelet Count 192 k/uL (150-450); RBC 3.48 m/uL (4.30-5.90); RDW 14.8 % (11.5-15.5); WBC 7.7 k/uL (3.8-10.6)
[2020-07-15] MEDS ORDERED: PEG 3350-NA SULF,BICARB,CL/KCL 4,000 ML BOTTLE PO ONE ×2 (12:39→17:00)
--- NOTE | 2020-07-15 14:14 | P.PN ---
Subjective Progress Note Date: 07/15/20 This is a 64-year-old male who was recently admitted with acute lower gastrointestinal bleed and is being closely monitored. GI and lan engineer following. Patient is on a medical surgical unit and was recently transferred from the ICU. Hemoglobin today is 10.7 and nursing staff reports dark stools with no blood noted. GI planning on following closely and monitoring for any GI bleed and deferring endoscopic interventions at this time unless further bleeding occurs. Aspirin is being held at this time. Will repeat a.m. labs and continue to monitor closely. Patient is afebrile. No reports of chest pain or palpitations noted. Tolerating diet with no reports of nausea or vomiting noted. 07/15/2020 Patient is seen and evaluated and follow-up and continues to be closely monitored. Patient denies any recent bleeding although states he has not had a bowel movement in 1-2 days. GI is following. Patient was resumed on aspirin yesterday although will continue to hold at this time. Hemoglobin is stable at 11.6. Will repeat a.m. labs and continue to monitor closely. Discussed with GI about if further bleeding is noted in the stool patient will likely undergo colonoscopy and patient is agreeable with this. Patient currently denies any abdominal discomfort was tolerating clear liquids and was advanced to full liquids and stating he was hungry with no reports of nausea or vomiting noted. Review of systems: Constitutional: No reports of fatigue, fever, or chills Cardiovascular: No reports of chest pain or palpitations Respiratory: No reports of shortness of breath or cough GI: No reports of nausea, vomiting, or diarrhea : No reports of dysuria or retention Neurovascular: No reports of weakness or numbness All medications have been reviewed Objective - Vital Signs Vital signs: Vital Signs Temp 98.0 F 07/15/20 04:50 Pulse 82 07/15/20 11:43 Resp 18 07/15/20 04:50 BP 161/81 07/15/20 04:50 Pulse Ox 92 L 07/15/20 04:50 Intake & Output 07/14/20 07/15/20 07/15/20 18:59 06:59 18:59 Intake Total 240 Output Total 1000 0 300 Balance -760 0 -300 Intake: Oral 240 Output: Urine 1000 300 Stool 0 0 Other: Voiding Method Urinal Urinal # Voids 2 4 1 # Bowel Movements 0 0 - Exam Gen: This is a 64-year-old male sitting up awake, alert and oriented 3, well- developed, well-nourished, obese. Temp is 98.0F, pulse is 76, respirations are 18, blood pressure is 161/81, oxygen saturation is 92-93% on room air. HEENT: Head is atraumatic, normocephalic. Pupils equal, round. Sclerae is anicteric. NECK: Supple. No JVD. No lymphadenopathy. No thyromegaly. LUNGS: Breath sounds diminished bilaterally with no wheezing or rhonchi noted No intercostal retractions. HEART: S1, S2 muffled ABDOMEN: Soft. Obese. Bowel sounds are present. No masses. No tenderness. EXTREMITIES: No pedal edema. No calf tenderness. NEUROLOGICAL: Patient is awake, alert and oriented x3. Cranial nerves 2 through 12 are grossly intact. - Labs CBC & Chem 7: 07/15/20 09:13 07/14/20 04:29 Labs: Abnormal Lab Results - Last 24 Hours (Table) 07/15/20 Range/Units 09:13 RBC 3.48 L (4.30-5.90) m/uL Hgb 11.6 L (13.0-17.5) gm/dL Hct 34.2 L (39.0-53.0) % Lymphocytes # 0.8 L (1.0-4.8) k/uL Microbiology - Last 24 Hours (Table) 07/11/20 15:06 Blood Culture - Preliminary Blood No Growth after 72 hours Assessment and Plan Assessment: Acute lower gastrointestinal bleeding with acute blood loss anemia with hypotension secondary to hypovolemic shock possibly secondary to diverticular bleed History of previous gastrointestinal bleed with possible diverticular disease Increased white blood count, possibly reactive Elevated lactic acid secondary to dehydration, present on admission Increased random blood sugar history of coronary artery disease Chronic obstructive pulmonary disease Hyperlipidemia history of myocardial infarction History of hernia repair Continued ongoing nicotine dependence Obesity with a BMI of 34.6 Full code Recommendations and discussion: Recommend to continue current medications, management, and symptomatic treatment. Continue with Protonix. Continue to monitor for bleeding. Hemoglobin this morning is 11.6. Patient did have a bowel movement that was maroon colored and GI is planning to do colonoscopy tomorrow and will initiate bowel prep. Continue to hold aspirin at this time. Will repeat a.m. labs. Due to multiple complex medical issues, prognosis is guarded. Further recommendations to follow. Possible discharge in 24 hours.
--- NOTE | 2020-07-15 14:33 | P.PN ---
Subjective Progress Note Date: 07/15/20 Principal diagnosis: Blood per rectum, diverticulosis Is a 64-year-old male who came in with blood per rectum with a history of diverticulosis. He had a prior colonoscopy in September 2018 for rectal bleed, which showed diverticulosis. He reported bowel movement was a small amount of maroon colored blood this morning.. He is tolerating a full liquid diet. He denies any abdominal pain, nausea, or vomiting. His hemoglobin is stable at 11.6. Objective - Vital Signs Vital signs: Vital Signs Temp 98.0 F 07/15/20 04:50 Pulse 82 07/15/20 11:43 Resp 18 07/15/20 04:50 BP 161/81 07/15/20 04:50 Pulse Ox 92 L 07/15/20 04:50 Intake & Output 07/14/20 07/15/20 07/15/20 18:59 06:59 18:59 Intake Total 240 Output Total 1000 0 300 Balance -760 0 -300 Intake: Oral 240 Output: Urine 1000 300 Stool 0 0 Other: Voiding Method Urinal Urinal # Voids 2 4 1 # Bowel Movements 0 0 - Exam General appearance: The patient is alert, oriented, in no acute distress. HET: Head is normocephalic and atraumatic. Conjunctiva pink. Sclera anicteric. Neck: Supple without lymphadenopathy. Abdomen: Soft, nontender, nondistended with bowel sounds. No guarding or rigidity. Extremities: Normal skin color and turgor. No pedal edema Neurological: No focal deficits. Alert and oriented 3. - Labs CBC & Chem 7: 07/15/20 09:13 07/14/20 04:29 Labs: Abnormal Lab Results - Last 24 Hours (Table) 07/15/20 Range/Units 09:13 RBC 3.48 L (4.30-5.90) m/uL Hgb 11.6 L (13.0-17.5) gm/dL Hct 34.2 L (39.0-53.0) % Lymphocytes # 0.8 L (1.0-4.8) k/uL Microbiology - Last 24 Hours (Table) 07/11/20 15:06 Blood Culture - Preliminary Blood No Growth after 72 hours Assessment and Plan (1) GI bleed Narrative/Plan: 64-year-old male with multiple medical comorbidities presenting to the hospital for painless for blood per rectum. Patient reports initially seeing only a small amount of blood but then had a large bloody bowel movement. No further episodes since admission. Hemoglobin on presentation was stable at 13.9, and is currently 10.9 from 11.1 yesterday. He denies any excessive NSAID use and there was no elevation in the BUN: Creatinine. Her colonoscopy in September 2018 for evaluation of similar symptoms of blood per rectum were significant for diverticulosis. Unclear etiology, suspicion is for recurrent diverticular bleed, differential also includes AVM, stercoral ulcer, or other etiology. Had a reported small bowel movement with maroon colored stool this morning. Hemoglobin stable at 11.6. Plan for colonoscopy tomorrow. Current Visit: Yes Status: Acute Code(s): K92.2 - GASTROINTESTINAL HEMORRHAG E, UNSPECIFIED SNOMED Code(s): 17292074 (2) Diverticulosis Current Visit: Yes Status: Acute Code(s): K57.90 - DVRTCLOS OF INTEST, PART UNSP, W/O PERF OR ABSCESS W/O BLEED SNOMED Code(s): 001825684 Plan: 1. Supportive care 2. Clear liquid diet, nothing by mouth after midnight 3. Bowel prep this evening 4. Continue monitor for signs or symptoms of GI bleeding 5. Continue to monitor hemoglobin and hematocrit and transfuse as needed 6. Colonoscopy scheduled for tomorrow 7. Continue Protonix twice daily 8. Okay to resume aspirin therapy Thank you for allowing us to participate in the care of the patient we will co kiarainue to follow Dr. Abdoulaye Harrison I agree with the dictator's note, documented as a scribe by Kayla Fermin.
[2020-07-15] MEDS: ATORVASTATIN 80 MG TAB PO SCH (19:58)
[2020-07-16] MEDS: PANTOPRAZOLE 40 MG/10 ML VIAL IV SCH ×2 (09:56→19:37)
[2020-07-16] MEDS: NICOTINE 14MG/24HR PATCH TRANSDERM SCH (09:59)
[2020-07-16 10:42] LABS: Basophils % (A) 0 %; Eosinophils # (A) 0.1 k/uL (0-0.7); Eosinophils % (A) 1 %; HCT 35.4 % (39.0-53.0); HGB 11.1 gm/dL (13.0-17.5); Lymphocytes % (A) 14 %; MCHC 31.2 g/dL (31.0-37.0); MCV 99.2 fL (80.0-100.0); Macrocytosis Slight; Mean Platelet Volume 8.4; Monocytes # (A) 0.4 k/uL (0-1.0); Monocytes % (A) 5 %; Neutrophils # (A) 5.4 k/uL (1.3-7.7); Neutrophils % (A) 76 %; Platelet Count 220 k/uL (150-450); RBC 3.57 m/uL (4.30-5.90); RDW 15.3 % (11.5-15.5); WBC 7.1 k/uL (3.8-10.6)
[2020-07-16 11:40] VITALS: BMI 35.9
[2020-07-16] MEDS ORDERED: PROPOFOL 10 MG/ML 20 ML VIAL IV ONE (13:10)
[2020-07-16] MEDS ORDERED: IV FLUID CONTINUATION 1,000 ML IV ONE (13:17)
--- NOTE | 2020-07-16 13:38 | P.PCN ---
Date of Procedure: 07/16/20 Procedure(s) Performed: BRIEF HISTORY: Patient is a 64-year-old pleasant white male admitted hospital with acute GI bleed. He presented with multiple episodes of bright red blood per rectum and melena. Last 3-4 days duration. Hemoglobin was 7 g/dL. He scheduled for colonoscopy to evaluate further. PROCEDURE PERFORMED: Colonoscopy with biopsy PREOPERATIVE DIAGNOSIS: acute lower GI bleed. IV sedation per Anesthesia. PROCEDURE: After informed consent was obtained, the patient, was brought into the endoscopy unit. IV sedation was administered by Anesthesia under continuous monitoring. Digital rectal examination was normal. Initially the Olympus CF-160 flexible video colonoscope was then inserted in the rectum, gradually advanced into the cecum without any difficulty. Careful examination was performed as the scope was gradually being withdrawn. Ileocecal valve and the appendiceal orifice were visualized and appeared normal. Prep was excellent. no active bleeding noted. In the base of the cecum revealed small areas of patchy erythema which was biopsied. Terminal ileum was intubated and 20 cm visualized and appeared normal. The rest of the mucosa of the cecum, ascending colon, transverse colon, descending colon, sigmoid colon, and rectum appeared normal. Scattered sigmoid diverticulosis seen. Retroflexion was performed in the rectum and no lesions were seen. The patient tolerated the procedure well. IMPRESSION: Patchy areas of erythema in the cecum status post biopsy Scattered sigmoid diverticulosis No active bleeding RECOMMENDATIONS: Findings of this examination were discussed with the patient. Most likely the bleeding was from diverticulosis which has spontaneously stopped. Diet will be advanced as tolerated and patient can be discharged home today..
[2020-07-16] MEDS: ALBUTEROL NEBULIZED 2.5 MG/3 ML INHALATION PRN (16:21)
--- NOTE | 2020-07-16 16:44 | P.PN ---
Subjective Progress Note Date: 07/16/20 This is a 64-year-old male who was recently admitted with acute lower gastrointestinal bleed and is being closely monitored. GI and grinder hand following. Patient is on a medical surgical unit and was recently transferred from the ICU. Hemoglobin today is 10.7 and nursing staff reports dark stools with no blood noted. GI planning on following closely and monitoring for any GI bleed and deferring endoscopic interventions at this time unless further bleeding occurs. Aspirin is being held at this time. Will repeat a.m. labs and continue to monitor closely. Patient is afebrile. No reports of chest pain or palpitations noted. Tolerating diet with no reports of nausea or vomiting noted. 07/15/2020 Patient is seen and evaluated and follow-up and continues to be closely monitored. Patient denies any recent bleeding although states he has not had a bowel movement in 1-2 days. GI is following. Patient was resumed on aspirin yesterday although will continue to hold at this time. Hemoglobin is stable at 11.6. Will repeat a.m. labs and continue to monitor closely. Discussed with GI about if further bleeding is noted in the stool patient will likely undergo colonoscopy and patient is agreeable with this. Patient currently denies any abdominal discomfort was tolerating clear liquids and was advanced to full liquids and stating he was hungry with no reports of nausea or vomiting noted. 07/16/2020 Patient is seen in follow-up and has completed the bowel prep and is nothing by mouth for the procedure this morning. Patient states he is scheduled to go sometime around noon. Patient denies any blood noted in the stool. Hemoglobin today is stable at 11.1. Patient will undergo colonoscopy with Dr. Harrison today and will await report. Review of systems: Constitutional: No reports of fatigue, fever, or chills Cardiovascular: No reports of chest pain or palpitations Respiratory: No reports of shortness of breath or cough GI: No reports of nausea, vomiting : No reports of dysuria or retention Neurovascular: No reports of weakness or numbness All medications have been reviewed Objective - Vital Signs Vital signs: Vital Signs Temp 98.2 F 07/16/20 08:11 Pulse 76 07/16/20 09:25 Resp 18 07/16/20 08:11 BP 159/81 07/16/20 08:11 Pulse Ox 92 L 07/16/20 08:11 Intake & Output 07/15/20 07/16/20 07/16/20 18:59 06:59 18:59 Output Total 300 150 Balance -300 -150 Weight 104 kg Output: Urine 300 150 Stool 0 Other: Voiding Method Urinal # Voids 2 3 # Bowel Movements 0 5 - Exam Gen: This is a 64-year-old male sitting up awake, alert and oriented 3, well- developed, well-nourished, obese. Temp is 98.2F, pulse is 99, respirations are 18, blood pressure is 159/81, oxygen saturation is 92% on room air. HEENT: Head is atraumatic, normocephalic. Pupils equal, round. Sclerae is anicteric. NECK: Supple. No JVD. No lymphadenopathy. No thyromegaly. LUNGS: Breath sounds diminished bilaterally with no wheezing or rhonchi noted No intercostal retractions. HEART: S1, S2 muffled ABDOMEN: Soft. Obese. Bowel sounds are present. No masses. No tenderness. EXTREMITIES: No pedal edema. No calf tenderness. NEUROLOGICAL: Patient is awake, alert and oriented x3. Cranial nerves 2 through 12 are grossly intact. - Labs CBC & Chem 7: 07/16/20 10:27 07/14/20 04:29 Labs: Abnormal Lab Results - Last 24 Hours (Table) 07/16/20 Range/Units 10:27 RBC 3.57 L (4.30-5.90) m/uL Hgb 11.1 L (13.0-17.5) gm/dL Hct 35.4 L (39.0-53.0) % Microbiology - Last 24 Hours (Table) 07/11/20 15:06 Blood Culture - Preliminary Blood No Growth after 96 hours Assessment and Plan Assessment: Acute lower gastrointestinal bleeding with acute blood loss anemia with hypotension secondary to hypovolemic shock possibly secondary to diverticular bleed History of previous gastrointestinal bleed with possible diverticular disease Increased white blood count, possibly reactive Elevated lactic acid secondary to dehydration, present on admission Increased random blood sugar history of coronary artery disease Chronic obstructive pulmonary disease Hyperlipidemia history of myocardial infarction History of hernia repair Continued ongoing nicotine dependence Obesity with a BMI of 34.6 Full code Recommendations and discussion: Recommend to continue current medications, management, and symptomatic treatment. Continue with Protonix. Continue to monitor for bleeding. Hemoglobin this morning is 11.1. Patient denies any further episodes of blood noted in the stool and did complete bowel prep. Continue to hold aspirin at this time. Will repeat a.m. labs. Will await colonoscopy report. Due to multiple complex medical issues, prognosis is guarded. Further recommendations to follow. Possible discharge in 24 hours.
[2020-07-16] MEDS: ATORVASTATIN 80 MG TAB PO SCH (19:37)
[2020-07-17 06:04] LABS: Basophils % (A) 0 %; Eosinophils # (A) 0.1 k/uL (0-0.7); Eosinophils % (A) 2 %; HGB 11.2 gm/dL (13.0-17.5); Lymphocytes # (A) 1.1 k/uL (1.0-4.8); Lymphocytes % (A) 15 %; MCH 31.7 pg (25.0-35.0); MCHC 32.1 g/dL (31.0-37.0); MCV 98.8 fL (80.0-100.0); Macrocytosis Slight; Mean Platelet Volume 7.9; Monocytes # (A) 0.3 k/uL (0-1.0); Monocytes % (A) 5 %; Neutrophils # (A) 5.5 k/uL (1.3-7.7); Neutrophils % (A) 75 %; Platelet Count 224 k/uL (150-450); RBC 3.55 m/uL (4.30-5.90); RDW 15.1 % (11.5-15.5); WBC 7.3 k/uL (3.8-10.6)
[2020-07-17 07:30] VITALS: BP 166/91; RESP 18; TEMP 98.7
[2020-07-17] MEDS: NICOTINE 14MG/24HR PATCH TRANSDERM SCH (07:56)
[2020-07-17] MEDS: PANTOPRAZOLE 40 MG/10 ML VIAL IV SCH (07:56)
[2020-07-17] MEDS: ALBUTEROL NEBULIZED 2.5 MG/3 ML INHALATION PRN (08:36)
[2020-07-17 08:58] VITALS: PULSE 73
[2020-07-17] MEDS ORDERED: LACTATED RINGERS 1,000 ML IV SCH (09:59)
--- NOTE | 2020-07-17 12:52 | P.PN ---
Subjective Progress Note Date: 07/17/20 Principal diagnosis: Blood per rectum, diverticulosis This is a 64-year-old male who came in with blood per rectum with a history of diverticulosis. He had a prior colonoscopy in September 2018 for rectal bleed, which showed diverticulosis. He underwent a colonoscopy yesterday and findings of patchy areas of erythema in the cecum status post biopsy, scattered sigmoid diverticulosis, no active bleeding. The patient's diet was advanced to a low fiber diet. He is seen and examined at the bedside. He states he is feeling well, he denies any abdominal pain, nausea, or vomiting. He states he has not had any blood per rectum or blood in his bowel movement. He states he is just passing gas and small amount of mucousy stool. Objective - Vital Signs Vital signs: Vital Signs Temp 98.7 F 07/17/20 07:29 Pulse 73 07/17/20 08:50 Resp 18 07/17/20 07:29 BP 166/91 07/17/20 07:29 Pulse Ox 93 L 07/17/20 07:29 Intake & Output 07/16/20 07/17/20 07/17/20 18:59 06:59 18:59 Intake Total 400 Output Total 125 150 Balance 275 -150 Weight 104 kg Intake: IV 400 0.9 NaCl- 0 Output: Urine 125 150 Other: Voiding Method Urinal Toilet Urinal # Voids 2 - Exam General appearance: The patient is alert, oriented, in no acute distress. HET: Head is normocephalic and atraumatic. Conjunctiva pink. Sclera anicteric. Neck: Supple without lymphadenopathy. Abdomen: Soft, nontender, nondistended with bowel sounds. No guarding or rigidity. Extremities: Normal skin color and turgor. No pedal edema Neurological: No focal deficits. Alert and oriented 3. - Labs CBC & Chem 7: 07/17/20 05:27 07/14/20 04:29 Labs: Abnormal Lab Results - Last 24 Hours (Table) 07/16/20 07/17/20 Range/Units 10:27 05:27 RBC 3.57 L 3.55 L (4.30-5.90) m/uL Hgb 11.1 L 11.2 L (13.0-17.5) gm/dL Hct 35.4 L 35.0 L (39.0-53.0) % Microbiology - Last 24 Hours (Table) 07/11/20 15:06 Blood Culture - Preliminary Blood No Growth after 120 hours Assessment and Plan (1) GI bleed Narrative/Plan: 64-year-old male with multiple medical comorbidities presenting to the hospital for painless for blood per rectum. Patient reports initially seeing only a small amount of blood but then had a large bloody bowel movement. No further episodes since admission. Hemoglobin on presentation was stable at 13.9, and is currently 10.9 from 11.1 yesterday. He denies any excessive NSAID use and there was no elevation in the BUN: Creatinine. Her colonoscopy in September 2018 for evaluation of similar symptoms of blood per rectum were significant for diverticulosis. Unclear etiology, suspicion is for recurrent diverticular bleed, differential also includes AVM, stercoral ulcer, or other etiology. He underwent colonoscopy yesterday with findings including patchy areas of erythema in the cecum status post biopsy, scattered sigmoid diverticulitis, and no active bleeding. He is doing well today. Plan is for discharge home. Hemoglobin is stable at 11.2. No further episodes of bleeding. Status: Acute Code(s): K92.2 - GASTROINTESTINAL HEMORRHAGE, UNSPECIFIED SNOMED Code(s): 07842568 (2) Diverticulosis Status: Acute Code(s): K57.90 - DVRTCLOS OF INTEST, PART UNSP, W/O PERF OR ABSCESS W/O BLEED SNOMED Code(s): 474251835 Plan: 1. Supportive care 2. Low fiber diet 3. Daily CBC 4. Continue monitor for signs or symptoms of GI bleeding 7. Continue Protonix twice daily For this consultation patient may be discharged home from a gastroenterology standpoint. We will sign off at this time. He was instructed to call the office for biopsy results. Dr. Abdoulaye Harrison I agree with the dictator's note, documented as a scribe by Kayla Fermin.
--- NOTE | 2020-07-18 09:34 | P.DS ---
Providers Date of admission: 07/11/20 12:00 Expected date of discharge: 07/17/20 Attending physician: Teodoro Plaza Consults: 07/11/20 12:19 Consult Physician Urgent Consulting Provider: Miguel Angel Odonnell Consult Reason/Comments: GI bleed Do you want consulting provider notified?: Yes 07/11/20 13:05 Consult Physician Urgent Consulting Provider: Ruiz Powell Consult Reason/Comments: ICU Do you want consulting provider notified?: Yes Primary care physician: Tiffani Arellano Hospital Course: Final diagnosis Acute lower gastrointestinal bleeding with acute blood loss anemia with hypotension secondary to hypovolemic shock possibly secondary to diverticular bleed History of previous gastrointestinal bleed with possible diverticular disease Increased white blood count, possibly reactive Elevated lactic acid secondary to dehydration, present on admission Increased random blood sugar history of coronary artery disease Chronic obstructive pulmonary disease Hyperlipidemia history of myocardial infarction History of hernia repair Continued ongoing nicotine dependence Obesity with a BMI of 34.6 Full code Discharge disposition Patient is being discharged in a stable condition with guarded prognosis to home. Patient will follow-up with Dr. Arellano in the outpatient setting upon discharge. Patient also instructed to follow-up with GI Dr. Harrison as discussed and scheduled. Total time taken is greater than 35 minutes. Hospital course This is a 64-year-old male who was recently admitted with acute lower gastrointestinal bleeding and was being closely monitored. Patient was seen and evaluated by GI Dr. Harrison. Patient underwent colonoscopy with GI revealing patchy areas of erythema in the cecum and scattered sigmoid diverticulosis with no active bleeding and biopsies were obtained. Patient will follow-up with GI in the outpatient setting as discussed and scheduled. Patient instructed to hold aspirin until primary care follow-up this week. Patient's diet has been advanced to low fiber and tolerating and most recent bowel movement showing no active bleeding noted. Hemoglobin is stable at 11.2. Currently no reports of chest pain, shortness of breath, or palpitations. Patient is afebrile. No reports of nausea or vomiting and patient is tolerating diet. Patient will be discharged home today. Guarded prognosis. On exam vital signs are stable. Cardio S1, S2 are muffled. Respiratory system shows diminished breath sounds at the bases with no wheezing or rhonchi noted. Abdomen is soft and nontender. Nervous system shows no focal deficits. Please refer to medication reconciliation sheet for a list of medications. Patient Condition at Discharge: Fair Plan - Discharge Summary Discharge Rx Participant: No New Discharge Prescriptions: New Pantoprazole Sodium [Protonix] 40 mg PO DAILY #30 tablet. Albuterol Inhaler [Ventolin Hfa Inhaler] 1 puff INHALATION RT-QID PRN 30 Days #1 puff PRN Reason: Shortness Of Breath Aspirin 81 mg PO DAILY chew Continue Nitroglycerin Sl Tabs [Nitrostat] 0.4 mg SUBLINGUAL Q5M PRN #25 tab PRN Reason: Chest Pain Atorvastatin [Lipitor] 80 mg PO HS Discontinued Aspirin EC [Ecotrin Low Dose] 81 mg PO DAILY Metoprolol Tartrate [Lopressor] 25 mg PO BID #60 tab lisinopriL [Zestril] 5 mg PO DAILY Discharge Medication List Nitroglycerin Sl Tabs [Nitrostat] 0.4 mg SUBLINGUAL Q5M PRN #25 tab 08/09/18 [Rx] Atorvastatin [Lipitor] 80 mg PO HS 09/16/18 [History] Albuterol Inhaler [Ventolin Hfa Inhaler] 1 puff INHALATION RT-QID PRN 30 Days #1 puff 07/14/20 [Rx] Pantoprazole Sodium [Protonix] 40 mg PO DAILY #30 tablet. 07/14/20 [Rx] Aspirin 81 mg PO DAILY chew 07/15/20 [Rx] Follow up Appointment(s)/Referral(s): Silva Harrison MD [STAFF PHYSICIAN] - 08/06/20 1:00 pm (please have patient call office to verify insurance information before appointment.) Tiffani Arellano MD [Primary Care Provider] - 07/21/20 10:40 am Patient Instructions/Handouts: Albuterol (By breathing), Pantoprazole (By mouth), Gastrointestinal Bleeding (DC) Activity/Diet/Wound Care/Special Instructions: Activity Limited until follow-up Follow-up with primary care provider upon discharge Continue current diet and advance slowly as tolerated Continue to hold aspirin until follow-up with primary care provider Follow-up GI in the outpatient setting Discharge Disposition: HOME SELF-CARE
== END 2020-07-17 12:27 | disposition home or self-care (01) | DRG 377 ==
LOC: EC 11:07 → OBSVTOIN 12:00 → 4SSUR 12:00 → 2SICU 13:14 → 6NMEDSUR 07-12 21:46 → 5NMEDONC 07-15 10:32
PROVIDERS: ADMIT Hospitalist; ATTEND Hospitalist
PROC: 0DBH8ZX Excision of Cecum, Via Natural or Artificial Opening Endoscopic, Diagnostic (ICD-10-PCS; principal; 2020-07-16 12:30)
DX: K57.31 Diverticulosis of large intestine without perforation or abscess with bleeding (principal); R57.1 Hypovolemic shock; D62 Acute posthemorrhagic anemia; I25.10 Atherosclerotic heart disease of native coronary artery without angina pectoris; E78.5 Hyperlipidemia, unspecified; E86.0 Dehydration; F17.200 Nicotine dependence, unspecified, uncomplicated; I10 Essential (primary) hypertension; E66.9 Obesity, unspecified; J44.9 Chronic obstructive pulmonary disease, unspecified; I25.2 Old myocardial infarction; Z68.35 Body mass index [BMI] 35.0-35.9, adult; Z79.82 Long term (current) use of aspirin; Z79.899 Other long term (current) drug therapy; Z82.49 Family history of ischemic heart disease and other diseases of the circulatory system; Z95.5 Presence of coronary angioplasty implant and graft; Z88.8 Allergy status to other drugs, medicaments and biological substances; Z98.890 Other specified postprocedural states
CPT/HCPCS: 36415; 45380; 71045; 80048; 80053; 81003; 82550; 83605; 83690; 83735; 84484; 85025; 85610; 85730; 86850; 86900; 86901; 86920; 87040; 88305; 93005; 94640; 94760; 96374; 99285